=== PATIENT | male | born 1995 | race Caucasian/White ===

== ENCOUNTER 2016-08-13 00:34 | Emergency (ER) | payer SELFPAY ==
[~2016-08-13 00:34] MED LIST: ALBU18HF; ALBU18HF INHALATION
== END 2016-08-13 00:46 | disposition left against medical advice (07) ==
LOC: FTE 00:34
DX: Z53.21 Procedure and treatment not carried out due to patient leaving prior to being seen by health care provider (principal)

== ENCOUNTER 2016-08-19 17:07 | Inpatient (IN) | payer OTHER ==
[~2016-08-19] VITALS: Ht 180.3 cm; Wt 65.5 kg
[2016-08-19] MEDS: ALBUTEROL 18 GM INHALER INH SCH (02:30)
[2016-08-19] MEDS ORDERED: ONDANSETRON 4 MG INJ IV STA (17:33)
[2016-08-19] MEDS ORDERED: FAMOTIDINE 20 MG INJ IV STA (17:33)
[2016-08-19] MEDS ORDERED: SOD CHLORIDE 0.9% 1,000 ML IV STA (17:33)
--- NOTE | 2016-08-19 17:44 | CONS ---
DATE OF ADMISSION: 08/19/2016 DATE OF CONSULTATION: Dear Dr. De Leon: I thank you very much for this kind referral. HISTORY OF PRESENT ILLNESS: Mr. Rangel Arroyo is a 21-year-old male patient who has been referred to me for further evaluation of abdominal pain associated with vomiting. There is no past history of peptic ulcer disease. He is not taking any nonsteroidal anti-inflammatory agents. His appetite has been poor and he has been losing weight. There is no history of gallstones. He does not have any fever, chills or jaundice. There is no history of liver disease. The patient denies any change in the bowel habit or rectal bleeding. He is not a hypertensive or diabetic. He does not have any heart disease or lung problem. There is no history of kidney disease. SOCIAL HISTORY: He is a nonsmoker. He does not abuse alcohol. FAMILY HISTORY: Negative for gastrointestinal tract neoplasm and liver disease. ALLERGIES: THERE IS NO HISTORY OF SIGNIFICANT DRUG ALLERGY. MEDICATIONS: None. PHYSICAL EXAMINATION: GENERAL: He is 5 feet 11 inches tall and he weighs 135 pounds. HEART: Examination of the heart reveals normal first and second heart sounds. LUNGS: Clear. ABDOMEN: Soft without any distention. Liver and spleen are not palpable. There are no masses. There is no focal tenderness. Normal bowel sounds are heard. CENTRAL NERVOUS SYSTEM: Does not reveal any focal neurological deficit. EYES: The patient is icteric. IMPRESSION: 1. Patient has jaundice. 2. Upper abdominal pain and vomiting. 3. Weight loss. PLAN: 1. CMP which includes liver enzymes. 2. Abdominal ultrasound for further evaluation. 3. If the vomiting continues, patient will need endoscopy examination. I thank you once again. With warmest personal regards, Dictated By: TAMIKA STOVER/CONSUELO Conf#: [id number] DID#: [id number]
--- NOTE | 2016-08-19 18:15 | RADRPT ---
PROCEDURE: US Abdomen. CLINICAL INDICATION: abdominal pain TECHNIQUE: Multiple real-time images were acquired of the patient's right upper quadrant abdomen a nd retroperitoneum utilizing a high resolution transducer. COMPARISON: None FINDINGS: The liver demonstrates normal echogenicity. The liver is normal in size and no focal solid lesions are seen. The liver measures 15.2 cm in length. The portal vein is patent with normal direction of f low. No intrahepatic biliary dilatation is seen. The gallbladder is contracted and not well seen. No gallstones are identified within the gallbladde r. There is no pericholecystic fluid or gallbladder wall thickening. The common bile duct measures 3 mm in maximal dimension. The pancreas appears enlarged and prominent. No free fluid is identified. The right kidney is normal in size, and demonstrate normal echogenicity and cortical thickness. The right kidney measures 10.4 cm in long dimension. There is no evidence of hydronephrosis. There are no kidney stones. There is a trace amount of right perinephric fluid. RPTAT: AA IMPRESSION: Limited visualization of a contracted gallbladder. No evidence of gallstones. Possible trace amount of right perinephric fluid. Enlarged and prominent pancreas. Rule out pancreatitis. Further evaluation with CT is recommended. .Phan Duncan MD, Date Time Electronically viewed and signed by .Phan Duncan MD, MD on 08/19/2016 18:15 .S/
[2016-08-19 18:40] LABS: URINE BLOOD (Dip) POC Negative (NEGATIVE)
[2016-08-19 18:50] LABS: ADD SCAN DIFF NO
[2016-08-19 18:52] LABS: BASOPHILS % 0.3 % (0.0-2.0); EOSINOPHILS # 0.4 10^3/ul (0.0-0.5); EOSINOPHILS % 6.1 % (0.0-7.0); HEMATOCRIT 41.7 % (42.0-52.0); HEMOGLOBIN 13.7 g/dl (14.0-18.0); LYMPHOCYTES # 1.6 10^3/ul (0.8-2.9); LYMPHOCYTES % 24.9 % (15.0-51.0); MEAN CORPUSCULAR HEMOGLOBIN 28.2 pg (29.0-33.0); MEAN CORPUSCULAR HGB CONC 32.9 g/dl (32.0-37.0); MEAN PLATELET VOLUME 11.7 fl (7.4-10.4); MONOCYTE # 0.9 10^3/ul (0.3-0.9); MONOCYTES % 13.1 % (0.0-11.0); NEUTROPHIL # 3.6 10^3/ul (1.6-7.5); NEUTROPHILS % 55.1 % (39.0-77.0); PLATELET COUNT 200 10^3/UL (140-415); RED BLOOD COUNT 4.85 10^6/ul (4.70-6.10); RED CELL DISTRIBUTION WIDTH 15.7 % (11.5-14.5); WHITE BLOOD COUNT 6.5 10^3/ul (4.8-10.8)
[2016-08-19 19:07] LABS: INR 1.39; PROTIME 17.1 Sec (12.2-14.2); PT RATIO 1.3
[2016-08-19 19:10] LABS: ALBUMIN 2.6 g/dl (3.3-4.9); POTASSIUM 4.1 mmol/L (3.5-5.1)
[2016-08-19 19:12] LABS: BILIRUBIN,DIRECT 3.6 mg/dl (0.00-0.20); BILIRUBIN,INDIRECT 1.2 mg/dl (0-1.1); BILIRUBIN,TOTAL 4.8 mg/dl (0.2-1.3); CREATININE 0.58 mg/dl (0.61-1.24)
[2016-08-19 19:13] LABS: ALBUMIN/GLOBULIN RATIO 0.6; CALCIUM 8.4 mg/dl (8.4-10.2); TOTAL PROTEIN 6.9 g/dl (6.1-8.1)
[2016-08-19] MEDS ORDERED: SOD CHLORIDE 0.9% 100 ML ONE (20:09)
[2016-08-19] MEDS ORDERED: IODIXANOL LOCM 100 ML BTL ONE (20:10)
--- NOTE | 2016-08-19 20:56 | RADRPT ---
PROCEDURE: CT Abdomen and Pelvis with contrast. CLINICAL INDICATION: Abdominal pain jaundice TECHNIQUE: CT scan of the abdomen and pelvis with contrast was performed on a multi-detector high- resolution CT scanner. The patient was scanned following the intravenous administration of 98 cc of Visipaque 320. Coronal and sagittal reformatted images were obtained from the axial source images. Images were reviewed on a high-resolution PACS workstation. The total exam CTDI equals 4.83 mGy and the total exam DLP equals 308.52 mGy-cm. One or more the following dose reduction techniques were utilized: Automated exposure control, adjus tment of the mA/ or kV according to patient's size, or use of iterative reconstruction technique. COMPARISON: Right upper quadrant abdominal ultrasound of 08/19/2016 FINDINGS: CT abdomen: The lung bases are clear. The heart size is normal, without pericardial thickening or effusion. Non specific mild periportal edema. The length of the right lobe of the liver equals 20.2 cm which coul d be secondary to Reidel's lobe, normal variant. The spleen is normal in size and homogeneous in de nsity. The stomach is partially collapsed, but is grossly unremarkable. The pancreas as visualized is normal. There is appearance of likely diffuse gallbladder wall edema. The adrenal glands are s ymmetric and normal. The kidneys are symmetrically unremarkable.. No renal calculus or obstructive uropathy or mass lesion is seen. The aorta is of normal caliber. There is no retroperitoneal lymphadenopathy. Small amount of as cites. CT pelvis: The small bowel loops situated within the pelvis are unremarkable. The pelvic organs are normal. T he pelvic sidewalls and inguinal regions are clear. The sigmoid colon and rectum are unremarkable. No mass or lymphadenopathy is seen. Small amount of ascites. The bladder is normal. There is appearance of mild curvature of the lumbar spine with convexity to the left which could be positional. No osteolytic or osteoblastic lesion is detected. IMPRESSION: Diffuse gallbladder wall edema. Nonspecific mild periportal edema. Small amount of ascites. Finding s could be secondary to hepatitis, hepatic congestion. Please see above. RPTAT: HJES .Christopher Hensley MD, MD Date Time Electronically viewed and signed by .Christopher Hensley MD, on 08/19/2016 20:56 .S/
--- NOTE | 2016-08-19 21:09 | ERA ---
ER Documentation Chief Complaint Date/Time DATE: 08/19/16 TIME: 21:01 Chief Complaint noticed dark urines and conjunctival jaundice eyes x 2 weeks. loss wt HPI This is a 21-year-old male presenting to the emergency department for epigastric abdominal pain with nausea, vomiting and jaundice. Patient states he has had symptoms for the past 2 weeks. Patient has had frequent vomiting postprandially. Nonbloody, nonbilious emesis. No diarrhea or constipation. Patient states he noticed conjunctival jaundice and dark urine for the last week. No dysuria or hematuria. No urinary frequency or urgency. Patient states he traveled to [facility] 1 year ago. Patient is not up-to-date on his vaccines. Patient unsure if he ever received hepatitis vaccines. No fevers or chills. ROS All systems reviewed and are negative except as per history of present illness. Medications Home Meds Active Scripts Albuterol Sulfate* (Ventolin HFA*) 18 Gm Hfa.aer.ad, 2 PUFF INHALATION Q6H, #1 INHALER 0 Refills Prov:YOHANNES TAVARES PA-C 05/14/15 Reported Medications Albuterol Sulfate* (Ventolin HFA*) 18 Gm Hfa.aer.ad 08/07/12 Allergies Allergies: Coded Allergies: No Known Allergies (Verified Allergy, Unknown, 08/19/16) PMhx/Soc History of Surgery: No Anesthesia Reaction: No Hx Neurological Disorder: No Hx Respiratory Disorders: Yes (ASTHMA) Hx Cardiac Disorders: No Hx Psychiatric Problems: No Hx Miscellaneous Medical Probl: No Hx Alcohol Use: No Hx Substance Use: No Hx Tobacco Use: No Physical Exam Vitals Vital Signs Date Time Temp Pulse Resp B/P Pulse Ox O2 Delivery O2 Flow Rate FiO2 08/19/16 17:11 98.1 71 18 174/67 99 Physical Exam Const: Alert, ill-appearing Head: Atraumatic Eyes: Normal Conjunctiva ENT: Normal External Ears, Nose and Mouth. Neck: Full range of motion..~ No meningismus. Resp: Clear to auscultation bilaterally Cardio: Regular rate and rhythm, no murmurs Abd: Soft, non distended. Normal bowel sounds Liver and spleen are not palpable. There are no masses. Tenderness to epigastric region. Skin: No petechiae or rashes Back: No midline or flank tenderness Ext: No cyanosis, or edema Neur: Awake and alert Psych: Normal Mood and Affect Result Diagram: 08/19/16 1835 08/19/16 1835 Results 24 hrs Laboratory Tests Test 08/19/16 18:35 08/19/16 18:42 White Blood Count 6.510^3/ul Red Blood Count 4.8510^6/ul Hemoglobin 13.7g/dl Hematocrit 41.7% Mean Corpuscular Volume 86.0fl Mean Corpuscular Hemoglobin 28.2pg Mean Corpuscular Hemoglobin Concent 32.9g/dl Red Cell Distribution Width 15.7% Platelet Count 97556^3/UL Mean Platelet Volume 11.7fl Neutrophils % 55.1% Lymphocytes % 24.9% Monocytes % 13.1% Eosinophils % 6.1% Basophils % 0.3% Nucleated Red Blood Cells % 0.0/100WBC Neutrophils # 3.610^3/ul Lymphocytes # 1.610^3/ul Monocytes # 0.910^3/ul Eosinophils # 0.410^3/ul Basophils # 0.010^3/ul Nucleated Red Blood Cells # 0.010^3/ul Prothrombin Time 17.1Sec Prothrombin Time Ratio 1.3 INR International Normalized Ratio 1.39 Sodium Level 135mmol/L Potassium Level 4.1mmol/L Chloride Level 98mmol/L Carbon Dioxide Level 29mmol/L Anion Gap 12 Blood Urea Nitrogen 9mg/dl Creatinine 0.58mg/dl Glucose Level 87mg/dl Calcium Level 8.4mg/dl Total Bilirubin 4.8mg/dl Direct Bilirubin 3.60mg/dl Indirect Bilirubin 1.2mg/dl Aspartate Amino Transf (AST/SGOT) 735IU/L Alanine Aminotransferase (ALT/SGPT) 574IU/L Alkaline Phosphatase 239IU/L Total Protein 6.9g/dl Albumin 2.6g/dl Globulin 4.30g/dl Albumin/Globulin Ratio 0.60 Lipase 180U/L Hepatitis B Surface Antigen NEGATIVE Hepatitis B Core Total Antibody NEGATIVE Hepatitis C Antibody NEGATIVE Bedside Urine pH (LAB) 6.0 Bedside Urine Protein (LAB) 1+ Bedside Urine Glucose (UA) 0.1% Bedside Urine Ketones (LAB) Negative Bedside Urine Blood Negative Bedside Urine Nitrite (LAB) Negative Bedside Urine Leukocyte Esterase (L Negative Current Medications Medications (Trade) Dose Ordered Sig/Kylee Route PRN Reason Start Time Stop Time Status Last Admin Dose Admin Sodium Chloride (NS) 1,000 ml @ 1,000 mls/hr Q1H STAT IV 08/19/16 17:33 08/19/16 18:32 DC 08/19/16 18:49 Ondansetron HCl (Zofran Inj) 4 mg ONCE STAT IV 08/19/16 17:33 08/19/16 17:43 DC 08/19/16 18:49 Famotidine (Pepcid Iv) 20 mg ONCE STAT IV 08/19/16 17:33 08/19/16 17:43 DC 08/19/16 18:49 IV Flush 10 ml 10 ml STK-MED ONCE .ROUTE 08/19/16 20:09 08/19/16 20:10 DC 08/19/16 20:30 Sodium Chloride (NS) 100 ml @ ud STK-MED ONCE .ROUTE 08/19/16 20:09 08/19/16 20:10 DC 08/19/16 20:30 Iodixanol (Visipaque Locm) 100 ml STK-MED ONCE .ROUTE 08/19/16 20:10 08/19/16 20:11 DC 08/19/16 20:30 Ondansetron HCl (Zofran Inj) 4 mg BRIDGE ORDER PRN IV NAUSEA AND/OR VOMITING 08/19/16 22:00 08/20/16 21:59 Acetaminophen (Tylenol Tab) 650 mg ER BRIDGE PRN PO MILD PAIN/FEVER 08/19/16 22:00 08/20/16 21:59 IV Flush (NS 3 ml) 3 ml PER PROTOCOL IV 08/19/16 22:30 Ondansetron HCl (Zofran Inj) 4 mg Q6H PRN IV NAUSEA AND/OR VOMITING 08/19/16 22:30 Morphine Sulfate (morphine) 2 mg Q4H PRN IV SEVERE PAIN LEVEL 7-10 08/19/16 22:30 Famotidine (Pepcid) 20 mg Q12 PO 08/20/16 09:00 Albuterol/ Ipratropium (Duoneb) 3 ml Q2H RESP THERAPY PRN HHN SHORTNESS OF BREATH 08/19/16 22:30 Albuterol (Ventolin Hfa) 2 puff Q6H RESP THERAPY INH 08/19/16 22:15 Procedures/MDM ED COURSE: The patient was stable throughout ED course. I kept the patient and/or family informed of laboratory and diagnostic imaging results throughout the ED course. Patient: SANG HOLT : 1995 Age: 21 Sex: M MR #: [id number] DOS: 08/19/16 1733 Ordering MD: LATRELL STUART NP Location: [facility] Room/Bed: PROCEDURE: US Abdomen. CLINICAL INDICATION: abdominal pain TECHNIQUE: Multiple real-time images were acquired of the patient's right upper quadrant abdomen and retroperitoneum utilizing a high resolution transducer. COMPARISON: None FINDINGS: The liver demonstrates normal echogenicity. The liver is normal in size and no focal solid lesions are seen. The liver measures 15.2 cm in length. The portal vein is patent with normal direction of flow. No intrahepatic biliary dilatation is seen. The gallbladder is contracted and not well seen. No gallstones are identified within the gallbladder. There is no pericholecystic fluid or gallbladder wall thickening. The common bile duct measures 3 mm in maximal dimension. The pancreas appears enlarged and prominent. No free fluid is identified. The right kidney is normal in size, and demonstrate normal echogenicity and cortical thickness. The right kidney measures 10.4 cm in long dimension. There is no evidence of hydronephrosis. There are no kidney stones. There is a trace amount of right perinephric fluid. RPTAT: AA IMPRESSION: Limited visualization of a contracted gallbladder. No evidence of gallstones. Possible trace amount of right perinephric fluid. Enlarged and prominent pancreas. Rule out pancreatitis. Further evaluation with CT is recommended. Patient: SANG HOLT : 1995 Age: 21 Sex: M [id number] DOS: 08/19/16 1817 Ordering MD: GUNJAN CANELA MD Location: [facility] Room/Bed: PROCEDURE: CT Abdomen and Pelvis with contrast. CLINICAL INDICATION: Abdominal pain jaundice TECHNIQUE: CT scan of the abdomen and pelvis with contrast was performed on a multi-detector high-resolution CT scanner. The patient was scanned following the intravenous administration of 98 cc of Visipaque 320. Coronal and sagittal reformatted images were obtained from the axial source images. Images were reviewed on a high-resolution PACS workstation. The total exam CTDI equals 4.83 mGy and the total exam DLP equals 308.52 mGy-cm. One or more the following dose reduction techniques were utilized: Automated exposure control, adjustment of the mA/ or kV according to patient's size, or use of iterative reconstruction technique. COMPARISON: Right upper quadrant abdominal ultrasound of 08/19/2016 FINDINGS: CT abdomen: The lung bases are clear. The heart size is normal, without pericardial thickening or effusion. Nonspecific mild periportal edema. The length of the right lobe of the liver equals 20.2 cm which could be secondary to Reidel's lobe , normal variant. The spleen is normal in size and homogeneous in density. The stomach is partially collapsed, but is grossly unremarkable. The pancreas as visualized is normal. There is appearance of likely diffuse gallbladder wall edema. The adrenal glands are symmetric and normal. The kidneys are symmetrically unremarkable.. No renal calculus or obstructive uropathy or mass lesion is seen. The aorta is of normal caliber. There is no retroperitoneal lymphadenopathy. Small amount of ascites. CT pelvis: The small bowel loops situated within the pelvis are unremarkable. The pelvic organs are normal. The pelvic sidewalls and inguinal regions are clear. The sigmoid colon and rectum are unremarkable. No mass or lymphadenopathy is seen. Small amount of ascites. The bladder is normal. There is appearance of mild curvature of the lumbar spine with convexity to the left which could be positional. No osteolytic or osteoblastic lesion is detected. IMPRESSION: Diffuse gallbladder wall edema. Nonspecific mild periportal edema. Small amount of ascites. Findings could be secondary to hepatitis, hepatic congestion. Please see above. MDM: This is a 21-year-old male presenting to emergency department for epigastric pain, vomiting, conjunctival jaundice 2 weeks. Patient states he is unable to tolerate p.o. intake. Patient states due to this he has had weight loss in the past 2 weeks. No fevers or chills. Patient is afebrile upon arrival to ED. Due to patient's history and physical exam, labs and gallbladder US are ordered. Gallbladder ultrasound reviewed by radiologist as limited visualization of a contracted gallbladder. No evidence of gallstones. Possible trace amount of right perinephric fluid. Enlarged and prominent pancreas. Rule out pancreatitis. Further evaluation with CT is recommended. No significant anemia or infection. However AST 735, ALT 574 and alkaline phosphatase 239. This is a significant elevation in liver enzymes and therefore a CT abdomen and pelvis with contrast is ordered. CT abdomen pelvis reviewed by radiologist as diffuse gallbladder wall edema. Nonspecific mild. Portal edema. Small amount of ascites. Findings could be secondary to hepatitis, hepatitic congestion. Consulted Dr. Connell regarding these findings. Patient appropriate for transfer to higher level of care and admission to hospital. Departure Diagnosis: Primary Impression: Hepatitis Condition: Stable LATRELL STUART NP August 19, 2016 21:09
[2016-08-19 21:11] LABS: HAAIG REFLEX REFLEX FILED
--- NOTE | 2016-08-19 21:50 | QN ---
Documentation Comment My independent concise history is jaundice. My pertinent physical exam findings are jaundice. The plan is admission to Dr. Mark as the patient has preferred [employer] insurance. SHAQUILLE OSEI MD August 19, 2016 21:50
[2016-08-19] MEDS ORDERED: ACETAMINOPHEN 325 MG TAB PO PRN (22:00)
[2016-08-19] MEDS ORDERED: ONDANSETRON 4 MG INJ IV PRN (22:00)
--- NOTE | 2016-08-19 22:05 | HP ---
Date/Time of Note Date/Time of Note DATE: 08/19/16 TIME: 22:05 HPI/ROS Admit Date/Time Admit Date/Time Hx of Present Illness PLEASE SEE THE DICTATED H&P Exam/Review of Systems Vital Signs Vitals Vital Signs Date Time Temp Pulse Resp B/P Pulse Ox O2 Delivery O2 Flow Rate FiO2 08/19/16 17:11 98.1 71 18 174/67 99 Labs Result Diagram: 08/19/16 1835 08/19/16 1835 SAFIA SENIOR MD August 19, 2016 22:05
[2016-08-19 22:15] LABS: HEPATITIS B CORE ANTIBODY NEGATIVE (NEGATIVE)
[2016-08-19] MEDS ORDERED: NACL 0.9% 3 ML SYG IV SCH (22:30)
[2016-08-19] MEDS ORDERED: morphine 2 MG INJ IV PRN (22:30)
[2016-08-19] MEDS ORDERED: ALBUTEROL/IPRATROPIUM (NEB) 3 ML AMP HHN PRN (22:30)
[2016-08-19] MEDS ORDERED: ERGO500037 PO (22:51)
[2016-08-20] MEDS: ALBUTEROL 18 GM INHALER INH SCH ×4 (02:00→20:00)
[2016-08-20 02:14] VITALS: TEMP 98.2
[2016-08-20 03:00] VITALS: BP 99/53; PULSE 66; RESP 18
[2016-08-20 03:04] VITALS: Ht 180.3 cm; Wt 65.5 kg
[2016-08-20 06:42] LABS: ADD SCAN DIFF NO
[2016-08-20 06:50] LABS: BASOPHILS % 0.6 % (0.0-2.0); EOSINOPHILS # 0.3 10^3/ul (0.0-0.5); EOSINOPHILS % 6.7 % (0.0-7.0); HEMATOCRIT 33.8 % (42.0-52.0); HEMOGLOBIN 11.2 g/dl (14.0-18.0); LYMPHOCYTES # 1.2 10^3/ul (0.8-2.9); LYMPHOCYTES % 24.5 % (15.0-51.0); MEAN CORPUSCULAR HEMOGLOBIN 28.1 pg (29.0-33.0); MEAN CORPUSCULAR HGB CONC 33.1 g/dl (32.0-37.0); MEAN CORPUSCULAR VOLUME 84.9 fl (82.0-101.0); MEAN PLATELET VOLUME 12.8 fl (7.4-10.4); MONOCYTE # 0.7 10^3/ul (0.3-0.9); MONOCYTES % 14.6 % (0.0-11.0); NEUTROPHIL # 2.6 10^3/ul (1.6-7.5); NEUTROPHILS % 53.2 % (39.0-77.0); PLATELET COUNT 157 10^3/UL (140-415); RED BLOOD COUNT 3.98 10^6/ul (4.70-6.10); RED CELL DISTRIBUTION WIDTH 15.7 % (11.5-14.5); WHITE BLOOD COUNT 4.9 10^3/ul (4.8-10.8)
[2016-08-20 07:12] LABS: ALBUMIN/GLOBULIN RATIO 0.58; BILIRUBIN,DIRECT 3.3 mg/dl (0.00-0.20); BILIRUBIN,INDIRECT 1.2 mg/dl (0-1.1); BILIRUBIN,TOTAL 4.5 mg/dl (0.2-1.3); CALCIUM 7.8 mg/dl (8.4-10.2); CREATININE 0.65 mg/dl (0.61-1.24); MAGNESIUM 1.7 mg/dl (1.7-2.5); PHOSPHORUS 3.8 mg/dl (2.5-4.9); TOTAL PROTEIN 5.4 g/dl (6.1-8.1)
[2016-08-20 08:00] VITALS: BP 92/53; RESP 20
[2016-08-20] MEDS ORDERED: DEXTROSE 5%-0.9% NACL 1,000 ML IV SCH (09:00)
--- NOTE | 2016-08-20 09:12 | HP ---
DATE OF ADMISSION: 08/19/2016 TIME SEEN: 2300 CHIEF COMPLAINT: Abdominal pain, vomiting, jaundice, and swollen hands. HISTORY OF PRESENT ILLNESS: The patient is 21-year-old [place] male with a history of asthma who presented to the emergency department with the above stated chief complaint. He stated starting abo ut 2 weeks ago he started noticing his eyes turning yellow, and about a week ago he started experien cing abdominal pain, mainly in the right upper quadrant in the epigastric area. He also started not icing dark urine over the past 2 weeks. He was actually referred to Dr. Diana, the [facility], who actually already saw the patient. The patient further stated that he has been well up unt md about a year ago when he started noticing that both of his hands were swollen. At that time, he also started having joint pains and generalized weakness. He did see a doctor who told him just to exercise his hands. Until this day, his hands are somehow swollen and he cannot make a fist because of pain and also there is some limitation. He did travel back to [facility] for a visit about a year ago. At that time had minimal diarrhea, which resolved on its own after a few days. Along with hi s abdominal pain over the past 2 weeks, the patient also has been vomiting which is nonbilious, nonb loody. The patient also stated that he had lost 50 pounds in 1 year. About a year ago he used to w eigh 185 pounds and he intentionally wanted to lose about 20 pounds, but he continued to lose weight because of the vomiting and the decreased p.o. intake. When the patient presented to the ER, his blood pressure was 174/67, heart rate 71, respiratory rate 18, temperature 98.1, oxygen saturation 99% on room air. CBC shows a hemoglobin of 13.7. He has a bnormal liver chemistries with an AST of 735, ALT 574, alkaline phosphatase 239. Total bilirubin is 4.8 with indirect bilirubin 1.2, his albumin 2.6. He had a right upper quadrant ultrasound which s hows possible trace amount of right perinephric fluid, enlarged and a prominent pancreas. His gallb ladder was contracted causing limited visualization, but there was no evidence of gallstones. CT ab domen and pelvis with contrast was done which showed diffuse gallbladder wall edema. Nonspecific mi ld periportal edema. A small amount of ascites. The findings could be secondary to hepatitis or he patic congestion. Of note, the patient a few months ago had blood tests and at that time his AST an d ALT were in the 90s and 80s. His MAGI (antinuclear antibody) was positive and hepatitis panel show s hepatitis C antibody and hepatitis B core antibody were negative, but the hepatitis B surface anti body was positive. Here, we already checked hepatitis B and C and it shows that hepatitis C antibod y, hepatitis B core antibody, and hepatitis B surface antigen are all negative. REVIEW OF SYSTEMS: A 12-point review of systems was performed, negative except as mentioned in HPI. PAST MEDICAL HISTORY: As per HPI. PAST SURGICAL HISTORY: Denies. SOCIAL HISTORY: Denies history of tobacco, alcohol or illicit drug use. ALLERGIES: NO KNOWN DRUG ALLERGIES. HOME MEDICATIONS: Albuterol and vitamin D. PHYSICAL EXAMINATION: GENERAL: The patient is lying in bed, appears weak and speaking slowly. He is alert and oriented. HEENT: No obvious head deformity. There is scleral icterus. Also, there is dermal jaundice on his face. CARDIOVASCULAR: Regular rate and rhythm with no extra sounds. LUNGS: Clear. ABDOMEN: Soft. There is tenderness in the right upper quadrant area and to some extent in the epig astric area with no guarding, rebound tenderness or rigidity. EXTREMITIES: Both of his hands are somehow swollen and the patient cannot make a fist. His middle finger also shows some deformity in that he cannot fully extend it. NEUROLOGIC: No focal deficits. LABORATORY DATA: Pertinent positives what as mentioned in the HPI. IMAGING: Right upper quadrant ultrasound and CT abdomen and pelvis with contrast with results as me ntioned in the HPI. IMPRESSION: 1. Jaundice. 2. Abdominal pain. 3. Abnormal liver enzymes. 4. Bilateral swollen hands. 5. History of asthma. PLAN: As mentioned in the HPI, his hepatitis panel so far have been negative, but we are waiting fo r the acute hepatitis panel results to come back. As mentioned in the HPI, also the patient had an A NA that was positive from outside laboratory. Given that his hands are swollen, he has joint pain, it may be possible that the patient has an autoimmune disease causing autoimmune hepatitis as well. We will further do some blood tests. The patient has been followed by Dr. Diana. Will talk to s eva whether or not the patient needs a liver biopsy or whether or not we should start him on a steroi d, Pentoxifylline. In the meantime, we will provide pain medication and antiemetics as needed. Cur rently there is no sign of asthma exacerbation but he will receive breathing treatments as needed. Further workup and management per clinical course. Dictated By: SAFIA HOBBS/CONSUELO Conf#: [id number] DID#: [id number]
[2016-08-20] MEDS: FAMOTIDINE 20 MG TAB PO SCH ×2 (09:28→20:41)
[2016-08-20] MEDS: SOD CHLORIDE 0.9% 1,000 ML IV SCH (11:28)
--- NOTE | 2016-08-20 12:28 | CONS ---
Date/Time of Note Date/Time of Note DATE: 08/20/16 TIME: 12:28 Assessment/Plan Assessment/Plan Additional Assessment/Plan Transaminitis/jaundice Evaluate for pancreatitis versus autoimmune etiology versus transient elevation Rule out choledocholithiasis IVF Hydration Nausea and pain control Review MRCP, autoimmune markers, hep A ERCP if clinically indicated, pt advised of R/B/A of procedure and she provides informed consent to proceed Monitor LFTs, amylase, lipase Surgery following Asthma Management per Primary Joint pain Management per Primary May require rheumatology consult Autoimmune markers in process Further recommendations depend on clinical course Patient seen in collaboration with Dr. Ortiz Consultation Date/Type/Reason Admit Date/Time Type of Consultation: Gastroenterology Reason for Consultation Transaminitis Hx of Present Illness Mr.Eyasu Arroyo is a 21-year-old male with a history of asthma who presented to the emergency room for further evaluation of nausea, vomiting, and abdominal pain. Patient denies hematemesis, fever, chills, diarrhea, hematochezia, sick contacts, and recent travel outside of the . Patient reports intermittent vomiting with chronic nausea and abdominal pain for the last 2 weeks. He also reports losing 4-6 pounds over this period. He reports previous history of abdominal pain for the last year with 50 pound weight loss. About a year ago he used to weigh 185 pounds and he intentionally wanted to lose about 20 pounds, but he continued to lose weight because of the vomiting and the decreased p.o. intake. Patient also has a history of joint pains and swelling for the last year as well. Patient states last travel to [facility] was a year ago. Patient said he was in the process of getting additional workup for autoimmune causes of joint pains. Patient denies diagnosis of lupus. Social History Smoking Status: Never smoker Exam/Review of Systems Vital Signs Vitals Vital Signs Date Time Temp Pulse Resp B/P Pulse Ox O2 Delivery O2 Flow Rate FiO2 08/20/16 08:00 98.2 66 20 92/53 98 08/20/16 03:00 Room Air Intake and Output 08/19/16 08/19/16 08/20/16 15:00 23:00 07:00 Intake Total 600 ml Output Total 500 ml Balance 100 ml Exam Constitutional: alert, oriented, well developed, thin Psych: nl mood/affect Head: normocephalic Eyes: EOMI, nl conjunctiva, nl lids, anicteric sclera ENMT: nl external ears & nose, nl lips & teeth, nl nasal mucosa & septum Respiratory: clear to auscultation, normal air movement Cardiovascular: regular rate and rhythm Gastrointestinal: soft, non-tender Musculoskeletal: nl extremities to inspection Neurological: HEAD OF SALES II-XII intact Results Result Diagram: 08/20/16 0501 08/20/16 0501 Results 24 hrs Laboratory Tests Test 08/19/16 18:35 08/19/16 18:42 08/20/16 05:01 White Blood Count 6.5 4.9 # Red Blood Count 4.85 3.98 L Hemoglobin 13.7 L 11.2 L Hematocrit 41.7 L 33.8 L Mean Corpuscular Volume 86.0 84.9 Mean Corpuscular Hemoglobin 28.2 L 28.1 L Mean Corpuscular Hemoglobin Concent 32.9 33.1 Red Cell Distribution Width 15.7 H 15.7 H Platelet Count 200 157 # Mean Platelet Volume 11.7 H 12.8 H Neutrophils % 55.1 53.2 Lymphocytes % 24.9 24.5 Monocytes % 13.1 H 14.6 H Eosinophils % 6.1 6.7 Basophils % 0.3 0.6 Nucleated Red Blood Cells % 0.0 0.0 Neutrophils # 3.6 2.6 Lymphocytes # 1.6 1.2 Monocytes # 0.9 0.7 Eosinophils # 0.4 0.3 Basophils # 0.0 0.0 Nucleated Red Blood Cells # 0.0 0.0 Prothrombin Time 17.1 H Prothrombin Time Ratio 1.3 INR International Normalized Ratio 1.39 Sodium Level 135 132 L Potassium Level 4.1 4.0 Chloride Level 98 105 Carbon Dioxide Level 29 25 Anion Gap 12 6 L Blood Urea Nitrogen 9 9 Creatinine 0.58 L 0.65 Glucose Level 87 98 Calcium Level 8.4 7.8 L Total Bilirubin 4.8 H 4.5 H Direct Bilirubin 3.60 H 3.30 H Indirect Bilirubin 1.2 H 1.2 H Aspartate Amino Transf (AST/SGOT) 735 H 569 H Alanine Aminotransferase (ALT/SGPT) 574 H 450 H Alkaline Phosphatase 239 H 178 H Total Protein 6.9 5.4 #L Albumin 2.6 L 2.0 L Globulin 4.30 H 3.40 H Albumin/Globulin Ratio 0.60 0.58 Lipase 180 Hepatitis B Surface Antigen NEGATIVE Hepatitis B Core Total Antibody NEGATIVE Hepatitis C Antibody NEGATIVE Bedside Urine pH (LAB) 6.0 Bedside Urine Protein (LAB) 1+ H Bedside Urine Glucose (UA) 0.1% H Bedside Urine Ketones (LAB) Negative Bedside Urine Blood Negative Bedside Urine Nitrite (LAB) Negative Bedside Urine Leukocyte Esterase (L Negative Phosphorus Level 3.8 Magnesium Level 1.7 HIV (1&2) Antibody NEGATIVE Medications Medications Current Medications Ondansetron HCl (Zofran Inj) 4 mg Q6H PRN IV NAUSEA AND/OR VOMITING; Start 03/26 at 22:30 Morphine Sulfate (morphine) 2 mg Q4H PRN IV SEVERE PAIN LEVEL 7-10; Start 08/19 at 22:30 Famotidine 20 mg 20 mg Q12 PO Last administered on 08/20/16 09:28; Admin Dose 20 MG; Start 08/20/16 at 09:00 Dextrose/Sodium Chloride 1,000 ml @ 100 mls/hr Q10H IV ; Start 08/20/16 at 09: 00 Sodium Chloride (NS) 1,000 ml @ 100 mls/hr Q10H IV Last administered on 11:28; Admin Dose 100 MLS/HR; Start 08/20/16 at 11:30; Stop 08/21/16 at 07: 29 SHANNAN KENNEDY August 20, 2016 12:28
--- NOTE | 2016-08-20 13:24 | CONS ---
DATE OF ADMISSION: 08/19/2016 DATE OF CONSULTATION: TYPE OF CONSULTATION: Surgical. REASON FOR CONSULTATION: Abdominal pain and jaundice. HISTORY OF PRESENT ILLNESS: The patient is a 21-year-old gentleman who started to develop jaundice within the last several months. He was followed as an outpatient by Dr. Diana, with outpatient wo rkup initiated. The patient presented to the emergency room yesterday with severe abdominal pain, n ausea and vomiting and was admitted for further evaluation and treatment. He was noted to be clinic ally icteric. The patient notes that over the last year he has lost 50 pounds because of inability to eat and nausea and he has joint pain in both hands, resulting in weakness. This hospitalization his admitting bilirubin was 4.8 with an AST of 735 and an ALT of 574, with an alkaline phosphatase o f 239. The patient is negative for hepatitis C, B and HIV. The patient is admitted for further mason luation. Of note, on imagings the abdomen and pelvis CT shows diffuse gallbladder wall edema with n onspecific mild periportal edema and a small amount of ascites. Gallbladder ultrasound shows limite d visualization of a contracted gallbladder, but no evidence of gallstones and a possible trace amou nt of right perinephric fluid in a large and prominent pancreas. PAST MEDICAL HISTORY: No previous abdominal surgeries or hospitalizations. REVIEW OF SYSTEMS: HEAD, EYES, EARS, NOSE, THROAT: Within normal limits. PULMONARY: No history of pneumonia or shortness of breath. CARDIAC: No history of chest pain, GA, or arrhythmia. ABDOMEN: As in the HPI. EXTREMITIES: As in the HPI. OUTPATIENT MEDICATIONS: None. ALLERGIES: NONE. PHYSICAL EXAMINATION: GENERAL: The patient is a thin 21-year-old, [place] male, who is awake and alert, in no acute dis tress. HEAD, EARS, EYES, NOSE, THROAT: Within normal limits. Sclerae are icteric. LUNGS: Clear. HEART: Regular rhythm. ABDOMEN: Slightly tender in the epigastric area, without masses. EXTREMITIES: Unremarkable. LABORATORY DATA: As noted above. PLAN: Awaiting GI consultation. The patient may need a liver biopsy. There are no surgical recomm endations at this time, as the patient's process is almost certainly entirely hepatocellular. Dictated By: ELMIRA SWAN/CONSUELO Conf#: [id number] [facility]#: [id number]
--- NOTE | 2016-08-20 14:29 | PN ---
Date/Time of Note Date/Time of Note DATE: 08/20/16 TIME: 14:26 Assessment/Plan VTE Prophylaxis VTE Prophylaxis Intervention: ambulation Lines/Catheters [facility] Urinary Cath still in place: No Assessment/Plan Chief Complaint/Hosp Course 1. Jaundice with hepatitis -Workup for autoimmune hepatitis is pending, hepatitis viral panel is negative -GI consult is appreciated 2. Joint pain with swollen hands-this is a chronic issue -Patient will need outpatient follow-up with commercial pest control technician, autoimmune workup is pending -Patient has history of positive MAGI in the past, will test for anti-double- stranded DNA 3. History of asthma-stable Prophylaxis: Ambulation Problems: Subjective 24 Hr Interval Summary Musculoskeletal: bone/joint pain Exam/Review of Systems Vital Signs Vitals Vital Signs Date Time Temp Pulse Resp B/P Pulse Ox O2 Delivery O2 Flow Rate FiO2 08/20/16 08:00 98.2 66 20 92/53 98 08/20/16 03:00 Room Air Intake and Output 08/19/16 08/19/16 08/20/16 15:00 23:00 07:00 Intake Total 600 ml Output Total 500 ml Balance 100 ml Exam Constitutional: alert, oriented Eyes: icteric Respiratory: clear to auscultation Cardiovascular: regular rate and rhythm Gastrointestinal: soft, No distended Musculoskeletal: nl extremities to inspection Results Result Diagram: 08/20/16 0501 08/20/16 0501 Results 24 hrs Laboratory Tests Test 08/19/16 18:35 08/19/16 18:42 08/20/16 05:01 White Blood Count 6.5 4.9 # Red Blood Count 4.85 3.98 L Hemoglobin 13.7 L 11.2 L Hematocrit 41.7 L 33.8 L Mean Corpuscular Volume 86.0 84.9 Mean Corpuscular Hemoglobin 28.2 L 28.1 L Mean Corpuscular Hemoglobin Concent 32.9 33.1 Red Cell Distribution Width 15.7 H 15.7 H Platelet Count 200 157 # Mean Platelet Volume 11.7 H 12.8 H Neutrophils % 55.1 53.2 Lymphocytes % 24.9 24.5 Monocytes % 13.1 H 14.6 H Eosinophils % 6.1 6.7 Basophils % 0.3 0.6 Nucleated Red Blood Cells % 0.0 0.0 Neutrophils # 3.6 2.6 Lymphocytes # 1.6 1.2 Monocytes # 0.9 0.7 Eosinophils # 0.4 0.3 Basophils # 0.0 0.0 Nucleated Red Blood Cells # 0.0 0.0 Prothrombin Time 17.1 H Prothrombin Time Ratio 1.3 INR International Normalized Ratio 1.39 Sodium Level 135 132 L Potassium Level 4.1 4.0 Chloride Level 98 105 Carbon Dioxide Level 29 25 Anion Gap 12 6 L Blood Urea Nitrogen 9 9 Creatinine 0.58 L 0.65 Glucose Level 87 98 Calcium Level 8.4 7.8 L Total Bilirubin 4.8 H 4.5 H Direct Bilirubin 3.60 H 3.30 H Indirect Bilirubin 1.2 H 1.2 H Aspartate Amino Transf (AST/SGOT) 735 H 569 H Alanine Aminotransferase (ALT/SGPT) 574 H 450 H Alkaline Phosphatase 239 H 178 H Total Protein 6.9 5.4 #L Albumin 2.6 L 2.0 L Globulin 4.30 H 3.40 H Albumin/Globulin Ratio 0.60 0.58 Lipase 180 Hepatitis B Surface Antigen NEGATIVE Hepatitis B Core Total Antibody NEGATIVE Hepatitis C Antibody NEGATIVE Bedside Urine pH (LAB) 6.0 Bedside Urine Protein (LAB) 1+ H Bedside Urine Glucose (UA) 0.1% H Bedside Urine Ketones (LAB) Negative Bedside Urine Blood Negative Bedside Urine Nitrite (LAB) Negative Bedside Urine Leukocyte Esterase (L Negative Phosphorus Level 3.8 Magnesium Level 1.7 CA 19-9 Antigen 869.0 H HIV (1&2) Antibody NEGATIVE Medications Medications Current Medications Ondansetron HCl (Zofran Inj) 4 mg Q6H PRN IV NAUSEA AND/OR VOMITING; Start 03/26 at 22:30 Morphine Sulfate (morphine) 2 mg Q4H PRN IV SEVERE PAIN LEVEL 7-10; Start 08/19 at 22:30 Famotidine 20 mg 20 mg Q12 PO Last administered on 08/20/16 09:28; Admin Dose 20 MG; Start 08/20/16 at 09:00 Sodium Chloride (NS) 1,000 ml @ 100 mls/hr Q10H IV Last administered on 11:28; Admin Dose 100 MLS/HR; Start 08/20/16 at 11:30; Stop 08/21/16 at 07: 29 JULIA BAKER August 20, 2016 14:29
--- NOTE | 2016-08-20 15:27 | RADRPT ---
PROCEDURE: MRI Abdomen without intravenous contrast. CLINICAL INDICATION: Hepatitis, abdominal pain TECHNIQUE: MRI of the abdomen was performed. The patient was examined without IV contrast. Images were reviewed on a high-resolution PACS workstation. COMPARISON: CT and ultrasound, 08/19/2016 FINDINGS: Hepatomegaly is noted measuring 20 cm. No focal hepatic mass is identified. Hepatic periportal renate ma is noted, which can be seen in the setting of hepatitis. Gallbladder is contracted, and demonstr ates circumferential wall edema, likely reactive secondary to underlying liver disease. No gallston e is seen. Splenomegaly is noted measuring 14 cm. Biliary tree, pancreas, adrenal glands and kidne ys are unremarkable. There is no obstructive uropathy. The stomach is grossly unremarkable. Abdominal aorta is normal in caliber. There is no retroperitoneal or terrence hepatis lymphadenopathy. Mild upper abdominal ascites is noted. No bowel obstruction or evidence of abscess is identified. The surrounding osseous structures are unremarkable. There is mild anasarca. IMPRESSION: 1. Hepatomegaly is noted. Hepatic periportal edema is identified, which can be seen in the setting of hepatitis. 2. Splenomegaly is noted measuring 14 cm. 3. There is mild upper abdominal ascites. 4. Circumferential gallbladder wall thickening is noted, likely reactive secondary to underlying li tejinder disease. No evidence of cholelithiasis, cholecystitis or biliary dilatation is identified. 5. There is mild anasarca. RPTAT: QQ .Vignesh Akhtar MD, MD Date Time Electronically viewed and signed by .Vignesh Akhtar MD, MD on 08/20/2016 15:27 .R/
[2016-08-20 19:25] VITALS: BP 93/51; RESP 18
[2016-08-21] MEDS: SOD CHLORIDE 0.9% 1,000 ML IV SCH (00:27)
[2016-08-21] MEDS: ALBUTEROL 18 GM INHALER INH SCH ×4 (02:00→20:00)
[2016-08-21 05:10] LABS: ADD SCAN DIFF NO
[2016-08-21 05:13] LABS: BASOPHILS % 0.3 % (0.0-2.0); EOSINOPHILS # 0.5 10^3/ul (0.0-0.5); EOSINOPHILS % 7.8 % (0.0-7.0); HEMATOCRIT 33.3 % (42.0-52.0); HEMOGLOBIN 11.3 g/dl (14.0-18.0); LYMPHOCYTES # 1.8 10^3/ul (0.8-2.9); LYMPHOCYTES % 30.5 % (15.0-51.0); MEAN CORPUSCULAR HEMOGLOBIN 28.5 pg (29.0-33.0); MEAN CORPUSCULAR HGB CONC 33.9 g/dl (32.0-37.0); MEAN CORPUSCULAR VOLUME 84.1 fl (82.0-101.0); MEAN PLATELET VOLUME 12.2 fl (7.4-10.4); MONOCYTE # 0.8 10^3/ul (0.3-0.9); MONOCYTES % 13.3 % (0.0-11.0); NEUTROPHIL # 2.8 10^3/ul (1.6-7.5); NEUTROPHILS % 47.9 % (39.0-77.0); PLATELET COUNT 166 10^3/UL (140-415); RED BLOOD COUNT 3.96 10^6/ul (4.70-6.10); RED CELL DISTRIBUTION WIDTH 15.7 % (11.5-14.5); WHITE BLOOD COUNT 5.8 10^3/ul (4.8-10.8)
[2016-08-21 05:33] LABS: ALBUMIN/GLOBULIN RATIO 0.58; BILIRUBIN,DIRECT 3.3 mg/dl (0.00-0.20); BILIRUBIN,INDIRECT 0.9 mg/dl (0-1.1); BILIRUBIN,TOTAL 4.2 mg/dl (0.2-1.3); CALCIUM 7.8 mg/dl (8.4-10.2); CREATININE 0.57 mg/dl (0.61-1.24); POTASSIUM 4.1 mmol/L (3.5-5.1); TOTAL PROTEIN 5.4 g/dl (6.1-8.1)
[2016-08-21 08:08] VITALS: BP 85/50; RESP 18
[2016-08-21] MEDS: FAMOTIDINE 20 MG TAB PO SCH ×2 (08:26→20:48)
--- NOTE | 2016-08-21 08:52 | PN ---
DATE: 08/21/2016 SUBJECTIVE: Clinically, there is no significant change. The patient still has poor appetite. LABORATORY DATA: His LFTs essentially remain unchanged. Of note is the fact that the patient's CA 19-9 is 869 and CEA is 7.2. PLAN: Continue workup and evaluation by GI. There are no new surgical recommendations at this time. I will sign off and see again p.r.n. at you r request. Dictated By: ELMIRA SWAN/CONSUELO Conf#: [id number] DID#: [id number]
--- NOTE | 2016-08-21 12:23 | CONS ---
Date/Time of Note Date/Time of Note DATE: 08/21/16 TIME: 12:07 Assessment/Plan Assessment/Plan Chief Complaint/Hosp Course Mr.Eyasu Arroyo is a 21-year-old male with a history of asthma who presented to the emergency room for further evaluation of nausea, vomiting, and abdominal pain. Patient denies hematemesis, fever, chills, diarrhea, hematochezia, sick contacts, and recent travel outside of the [place]. Patient reports intermittent vomiting with chronic nausea and abdominal pain for the last 2 weeks. He also reports losing 4-6 pounds over this period. He reports previous history of abdominal pain for the last year with 50 pound weight loss. About a year ago he used to weigh 185 pounds and he intentionally wanted to lose about 20 pounds, but he continued to lose weight because of the vomiting and the decreased p.o. intake. Patient also has a history of joint pains and swelling for the last year as well. Patient states last travel to [facility] was a year ago. Patient said he was in the process of getting additional workup for autoimmune causes of joint pains. Patient denies diagnosis of lupus. Problems: Additional Assessment/Plan Transaminitis/jaundice Evaluate for pancreatitis versus autoimmune etiology versus transient elevation Rule out choledocholithiasis IVF Hydration Nausea and pain control MRCP: 1. Hepatomegaly is noted. Hepatic periportal edema is identified, which can be seen in the setting of hepatitis. 2. Splenomegaly is noted measuring 14 cm. 3. There is mild upper abdominal ascites. 4. Circumferential gallbladder wall thickening is noted, likely reactive secondary to underlying liver disease. No evidence of cholelithiasis, cholecystitis or biliary dilatation is identified. 5. There is mild anasarca. ERCP if clinically indicated, pt advised of R/B/A of procedure and she provides informed consent to proceed Monitor LFTs, amylase, lipase Surgery following Asthma Management per Primary Joint pain Management per Primary May require rheumatology consult Autoimmune markers in process Further recommendations depend on clinical course Patient seen in collaboration with Dr. Ortiz Consultation Date/Type/Reason Admit Date/Time August 19, 2016 at 21:48 Initial Consult Date Type of Consultation: Gastroenterology 24 HR Interval Summary Free Text/Dictation Pt tolerating diet Awaiting autoimmune markers may need Heme/Onc consult based on CEA and CA 19-9 values Exam/Review of Systems Vital Signs Vitals Vital Signs Date Time Temp Pulse Resp B/P Pulse Ox O2 Delivery O2 Flow Rate FiO2 08/21/16 08:08 98.1 82 18 85/50 96 08/20/16 03:00 Room Air Intake and Output 08/20/16 08/20/16 08/21/16 15:00 23:00 07:00 Intake Total 900 ml 1600 ml Balance 900 ml 1600 ml Exam Constitutional: alert, oriented, well developed, thin Psych: nl mood/affect Head: normocephalic Eyes: EOMI, nl conjunctiva, nl lids, anicteric sclera ENMT: nl external ears & nose, nl lips & teeth, nl nasal mucosa & septum Respiratory: clear to auscultation, normal air movement Cardiovascular: regular rate and rhythm Gastrointestinal: soft, non-tender Musculoskeletal: nl extremities to inspection Neurological: CREDIT ANALYSIS MANAGER II-XII intact Results Result Diagram: 08/21/16 0412 08/21/16 0412 Results 24 hrs Laboratory Tests Test 08/20/16 15:20 08/21/16 04:12 Alpha Fetoprotein 2.77 Carcinoembryonic Antigen 7.2 H White Blood Count 5.8 Red Blood Count 3.96 L Hemoglobin 11.3 L Hematocrit 33.3 L Mean Corpuscular Volume 84.1 Mean Corpuscular Hemoglobin 28.5 L Mean Corpuscular Hemoglobin Concent 33.9 Red Cell Distribution Width 15.7 H Platelet Count 166 Mean Platelet Volume 12.2 H Neutrophils % 47.9 Lymphocytes % 30.5 Monocytes % 13.3 H Eosinophils % 7.8 H Basophils % 0.3 Nucleated Red Blood Cells % 0.0 Neutrophils # 2.8 Lymphocytes # 1.8 Monocytes # 0.8 Eosinophils # 0.5 Basophils # 0.0 Nucleated Red Blood Cells # 0.0 Sodium Level 132 L Potassium Level 4.1 Chloride Level 105 Carbon Dioxide Level 26 Anion Gap 5 L Blood Urea Nitrogen 9 Creatinine 0.57 L Glucose Level 81 Calcium Level 7.8 L Magnesium Level 1.5 L Total Bilirubin 4.2 H Direct Bilirubin 3.30 H Indirect Bilirubin 0.9 Aspartate Amino Transf (AST/SGOT) 572 H Alanine Aminotransferase (ALT/SGPT) 429 H Alkaline Phosphatase 176 H Total Protein 5.4 L Albumin 2.0 L Globulin 3.40 H Albumin/Globulin Ratio 0.58 Medications Medications Current Medications Ondansetron HCl (Zofran Inj) 4 mg Q6H PRN IV NAUSEA AND/OR VOMITING; Start 03/26 at 22:30 Morphine Sulfate (morphine) 2 mg Q4H PRN IV SEVERE PAIN LEVEL 7-10; Start 08/19 at 22:30 Famotidine (Pepcid) 20 mg Q12 PO Last administered on 08/21/16t 08:26; Admin Dose 20 MG; Start 08/20/16 at 09:00 SHANNAN KENNEDY August 21, 2016 12:17
[2016-08-21] MEDS ORDERED: INDOMETHACIN 50 MG SUPP PR SCH (13:00)
[2016-08-21] MEDS ORDERED: MAGNESIUM SULFATE 4 GM/100 ML 100 ML IVPB ONE (14:00)
--- NOTE | 2016-08-21 17:34 | PN ---
Date/Time of Note Date/Time of Note DATE: 08/21/16 TIME: 17:30 Assessment/Plan VTE Prophylaxis VTE Prophylaxis Intervention: ambulation Lines/Catheters IV C[facility]ter Type (from [facility] Peripheral IV Urinary Cath still in place: No Assessment/Plan Chief Complaint/Hosp Course 1. Jaundice with hepatitis -LFTs have trended down since admission -Workup for autoimmune hepatitis is pending, hepatitis viral panel is negative -GI consult is appreciated -MRCP shows hepatitis and splenomegaly otherwise no significant findings 2. Joint pain with swollen hands-this is a chronic issue -Patient will need outpatient follow-up with smoke jumper, autoimmune workup is pending -Patient has history of positive MAGI in the past, will test for anti-double- stranded DNA 3. History of asthma-stable Prophylaxis: Ambulation Problems: Subjective 24 Hr Interval Summary Constitutional: no complaints Exam/Review of Systems Vital Signs Vitals Vital Signs Date Time Temp Pulse Resp B/P Pulse Ox O2 Delivery O2 Flow Rate FiO2 08/21/16 08:08 98.1 82 18 85/50 96 08/20/16 03:00 Room Air Intake and Output 08/20/16 08/20/16 08/21/16 15:00 23:00 07:00 Intake Total 900 ml 1600 ml Balance 900 ml 1600 ml Exam Constitutional: alert, oriented Respiratory: clear to auscultation Cardiovascular: regular rate and rhythm Gastrointestinal: non-tender, soft, No distended Musculoskeletal: nl extremities to inspection Results Result Diagram: 08/21/16 0412 08/21/16 0412 Results 24 hrs Laboratory Tests Test 08/21/16 04:12 White Blood Count 5.8 Red Blood Count 3.96 L Hemoglobin 11.3 L Hematocrit 33.3 L Mean Corpuscular Volume 84.1 Mean Corpuscular Hemoglobin 28.5 L Mean Corpuscular Hemoglobin Concent 33.9 Red Cell Distribution Width 15.7 H Platelet Count 166 Mean Platelet Volume 12.2 H Neutrophils % 47.9 Lymphocytes % 30.5 Monocytes % 13.3 H Eosinophils % 7.8 H Basophils % 0.3 Nucleated Red Blood Cells % 0.0 Neutrophils # 2.8 Lymphocytes # 1.8 Monocytes # 0.8 Eosinophils # 0.5 Basophils # 0.0 Nucleated Red Blood Cells # 0.0 Sodium Level 132 L Potassium Level 4.1 Chloride Level 105 Carbon Dioxide Level 26 Anion Gap 5 L Blood Urea Nitrogen 9 Creatinine 0.57 L Glucose Level 81 Calcium Level 7.8 L Magnesium Level 1.5 L Total Bilirubin 4.2 H Direct Bilirubin 3.30 H Indirect Bilirubin 0.9 Aspartate Amino Transf (AST/SGOT) 572 H Alanine Aminotransferase (ALT/SGPT) 429 H Alkaline Phosphatase 176 H Total Protein 5.4 L Albumin 2.0 L Globulin 3.40 H Albumin/Globulin Ratio 0.58 Medications Medications Current Medications Ondansetron HCl (Zofran Inj) 4 mg Q6H PRN IV NAUSEA AND/OR VOMITING; Start 03/26 at 22:30 Morphine Sulfate (morphine) 2 mg Q4H PRN IV SEVERE PAIN LEVEL 7-10; Start 08/19 at 22:30 Famotidine 20 mg 20 mg Q12 PO Last administered on 08/21/16 08:26; Admin Dose 20 MG; Start 08/20/16 at 09:00 Magnesium Sulfate (Magnesium Sulfate 4 Gm/100 ml) 100 ml @ 25 mls/hr ONCE ONCE IVPB Last administered on 08/21/16 14:43; Admin Dose 25 MLS/HR; Start at 14:00; Stop 08/21/16 at 17:59 JULIA BAKER August 21, 2016 17:34
[2016-08-21 20:48] VITALS: BP 95/58; RESP 16
[2016-08-22] MEDS: ALBUTEROL 18 GM INHALER INH SCH ×4 (02:00→20:00)
[2016-08-22 05:09] LABS: ADD SCAN DIFF NO
[2016-08-22 05:14] LABS: BASOPHILS % 0.4 % (0.0-2.0); EOSINOPHILS # 0.4 10^3/ul (0.0-0.5); EOSINOPHILS % 7.4 % (0.0-7.0); HEMATOCRIT 32.3 % (42.0-52.0); HEMOGLOBIN 10.9 g/dl (14.0-18.0); LYMPHOCYTES # 1.5 10^3/ul (0.8-2.9); LYMPHOCYTES % 27.8 % (15.0-51.0); MEAN CORPUSCULAR HEMOGLOBIN 28.2 pg (29.0-33.0); MEAN CORPUSCULAR HGB CONC 33.7 g/dl (32.0-37.0); MEAN CORPUSCULAR VOLUME 83.7 fl (82.0-101.0); MEAN PLATELET VOLUME 12.7 fl (7.4-10.4); MONOCYTE # 0.8 10^3/ul (0.3-0.9); MONOCYTES % 14.3 % (0.0-11.0); NEUTROPHIL # 2.6 10^3/ul (1.6-7.5); NEUTROPHILS % 49.7 % (39.0-77.0); PLATELET COUNT 176 10^3/UL (140-415); RED BLOOD COUNT 3.86 10^6/ul (4.70-6.10); RED CELL DISTRIBUTION WIDTH 15.9 % (11.5-14.5); WHITE BLOOD COUNT 5.3 10^3/ul (4.8-10.8)
[2016-08-22 05:37] LABS: ALBUMIN 1.9 g/dl (3.3-4.9)
[2016-08-22 05:38] LABS: POTASSIUM 3.7 mmol/L (3.5-5.1)
[2016-08-22 05:40] LABS: BILIRUBIN,DIRECT 2.6 mg/dl (0.00-0.20); BILIRUBIN,INDIRECT 0.8 mg/dl (0-1.1); BILIRUBIN,TOTAL 3.4 mg/dl (0.2-1.3); CREATININE 0.56 mg/dl (0.61-1.24)
[2016-08-22 05:41] LABS: ALBUMIN/GLOBULIN RATIO 0.55; CALCIUM 7.7 mg/dl (8.4-10.2); TOTAL PROTEIN 5.3 g/dl (6.1-8.1)
[2016-08-22 06:16] LABS: AMYLASE 80 U/L (11-123)
[2016-08-22] MEDS: FAMOTIDINE 20 MG TAB PO SCH ×2 (08:09→22:21)
[2016-08-22 10:23] VITALS: BP 97/53; RESP 18
[2016-08-22 11:59] LABS: C-REACTIVE PROTEIN 1.2 mg/dl (0.0-0.9)
[2016-08-22 12:10] LABS: CHOL/HDL RATIO 6.2 RATIO
--- NOTE | 2016-08-22 12:35 | PN ---
DATE: 08/22/2016 TIME OF EVALUATION: 11:30 a.m. SUBJECTIVE DATA: Complains of some nausea. OBJECTIVE DATA: VITAL SIGNS: Temperature 98.2, pulse rate 72, respiratory rate 18, blood pressure 97/53 and oxygen saturation 100% on room air. GENERAL: This is a 21-year-old male patient lying in bed in no apparent distress. HEENT: Head normocephalic and atraumatic. Eyes icteric sclerae. Conjunctivae clear. ENT: Nasal septum is midline. Oral mucosa is moist. NECK: Supple. No JVD noticed. RESPIRATORY: Bilaterally clear to auscultation. No adventitious breath sounds heard. No use of accessory muscles of respiration. CARDIAC: Regular rate and rhythm. ABDOMEN: Soft, nontender, nondistended. Bowel sounds positive in all 4 quadrants. GENITOURINARY: Deferred. EXTREMITIES: No cyanosis, no clubbing, no edema. Peripheral pulses palpable. Tenderness in the joints. NEUROLOGIC: The patient is awake, alert and oriented. Cranial nerves are grossly intact. LABORATORY AND DIAGNOSTIC DATA: WBC 5.3, hemoglobin 10.9, hematocrit 32.5, platelet count 176. Sodium 133, potassium 3.7, chloride 100, carbon dioxide 20 , anion gap 9, BUN 8, creatinine 0.56, glucose 87, calcium 7.7, total bilirubin 3.4, direct bilirubin 2.6, indirect bilirubin 0.8, AST of 594, ALT 404, alkaline phosphatase 180. Total protein 5.3, albumin 1.9. ASSESSMENT AND PLAN: 1. Hyperbilirubinemia with transaminitis, etiology unclear. Hepatitis panel negative. The patient is being evaluated for any autoimmune hepatitis. 2. Positive tumor markers. The patient has positive CA 19-9 and CEA. However , the patient's alpha fetoprotein is negative. We will involve oncology on the case. 3. Polyarthritis with decreased range of motion. Etiology unclear. We will obtain an ESR and C-reactive protein on this patient. We will await further workup including MAGI on this patient. 4. Asthma. Stable. Continue p.r.n. inhaled bronchodilators. 5. Normocytic anemia. Etiology unclear. We will monitor the H and H closely. We will order an iron panel. 6. Fluid, electrolytes and nutrition. Regular diet as tolerated. 7. Deep venous thrombosis prophylaxis. Ambulation. 8. Gastrointestinal prophylaxis. Histamine 2 receptor blockers. PLAN: Continue inpatient monitoring. Await blood work including small muscle antibody. Obtain oncology evaluation. Case discussed with Dr. Hartley. The plan of care was explained to the patient's family who was at the bedside. CEDRICK HARTLEY MD, AM/CONSUELO Conf#: [id number] DID#: [id number]
--- NOTE | 2016-08-22 13:18 | CONS ---
Date/Time of Note Date/Time of Note DATE: 08/22/16 TIME: 13:01 Assessment/Plan Assessment/Plan Chief Complaint/Hosp Course The patient is a 21 year old male with hyperbilirubinemia, trending down since admission, of unclear etiology with negative hepatitis panel, undergoing work- up for autoimmune hepatitis, with significantly elevated CA 19-9 at 869 (0-37) and CEA mildly elevated at 7.2 (0-5). AFP normal at 2.77 (0-7.21). - MRCP 08/20/16 demonstrated hepatomegaly at 20 cm with no focal hepatic mass is identified, hepatic periportal edema is noted, which can be seen in the setting of hepatitis. Gallbladder is contracted, and demonstrates circumferential wall edema, likely reactive secondary to underlying liver disease. Splenomegaly is noted measuring 14 cm. Biliary tree, pancreas, adrenal glands and kidneys are unremarkable. There is no retroperitoneal or terrence hepatis lymphadenopathy. Mild upper abdominal ascites is noted. - Appreciate GI recs. Would agree with ERCP. - If ERCP negative, consider EUS to rule out pancreaticobiliary lesion. CA 19-9 is significantly elevated and may be due to underlying inflammatory/autoimmune process, however would need to rule out underlying pancreaticobiliary malignancy such as pancreatic or intrahepatic cholangiocarcinoma. Patient can follow-up with us as an outpatient for EUS/GI referral. # Normocytic anemia, will check iron panel, ferritin, B12/folate, MMA, homocystine, TSH, LDH, haptoglobin, retic count. Pending MAGI. Problems: Consultation Date/Type/Reason Admit Date/Time August 19, 2016 at 21:48 Date of Consultation: August 22, 2016 Type of Consultation: Oncology Reason for Consultation Elevated CA 19-9, CEA Hx of Present Illness The patient is 21-year-old [place] male with a history of asthma who presented to the emergency department with abdominal pain, vomiting, jaundice and swollen hands. He stated that he has had the RUQ abdominal pain, N/V and jaundice for 2.5 weeks. He has had some constipation and pale stool but no diarrhea. No F/C. He states that the abdominal pain comes and goes and that eating makes his nausea worse. He lost 6 pounds in the past 2 weeks and 50 pounds in the past year, unintentional. He was actually referred to Dr. Diana, the wood pattern maker, who actually already saw the patient. The patient further stated that he has been well up until about a year ago when he started noticing that both of his hands were swollen. At that time, he also started having joint pains and generalized weakness. He did see a doctor who told him just to exercise his hands. Until this day, his hands are somehow swollen and he cannot make a fist because of pain and also there is some limitation. He did travel back to [facility] for a visit about a year ago. He had a right upper quadrant ultrasound which shows possible trace amount of right perinephric fluid, enlarged and a prominent pancreas. His gallbladder was contracted causing limited visualization, but there was no evidence of gallstones. CT abdomen and pelvis with contrast was done which showed diffuse gallbladder wall edema. Nonspecific mild periportal edema. A small amount of ascites. The findings could be secondary to hepatitis or hepatic congestion. MRCP demonstrated hepatomegaly without focal hepatic mass and splenomegaly. Musculoskeletal: bone/joint pain Past Medical History Polyarthritis with decreased range of motion, Asthma, low Vitamin D level Past Surgical History Past Surgical Hx: no surgical history Family History Significant Family History: no pertinent family hx Social History Alcohol Use: none Smoking Status: Never smoker Exam/Review of Systems Vital Signs Vitals Vital Signs Date Time Temp Pulse Resp B/P Pulse Ox O2 Delivery O2 Flow Rate FiO2 08/22/16 10:23 98.2 72 18 97/53 100 08/20/16 03:00 Room Air Intake and Output 08/21/16 08/21/16 08/22/16 14:59 22:59 06:59 Intake Total 500 ml 940 ml 800 ml Balance 500 ml 940 ml 800 ml Exam Constitutional: alert, oriented Psych: no complaints Eyes: icteric Neck: supple Respiratory: clear to auscultation Cardiovascular: regular rate and rhythm Gastrointestinal: non-tender, soft Musculoskeletal: nl extremities to inspection Neurological: RADIO RIGGER II-XII intact Results Result Diagram: 08/22/16 0410 08/22/16 041 Results 24 hrs Laboratory Tests Test 08/22/16 04:10 White Blood Count 5.3 Red Blood Count 3.86 L Hemoglobin 10.9 L Hematocrit 32.3 L Mean Corpuscular Volume 83.7 Mean Corpuscular Hemoglobin 28.2 L Mean Corpuscular Hemoglobin Concent 33.7 Red Cell Distribution Width 15.9 H Platelet Count 176 Mean Platelet Volume 12.7 H Neutrophils % 49.7 Lymphocytes % 27.8 Monocytes % 14.3 H Eosinophils % 7.4 H Basophils % 0.4 Nucleated Red Blood Cells % 0.0 Neutrophils # 2.6 Lymphocytes # 1.5 Monocytes # 0.8 Eosinophils # 0.4 Basophils # 0.0 Nucleated Red Blood Cells # 0.0 Erythrocyte Sedimentation Rate 3 Sodium Level 133 L Potassium Level 3.7 Chloride Level 103 Carbon Dioxide Level 25 Anion Gap 9 Blood Urea Nitrogen 8 Creatinine 0.56 L Glucose Level 87 Calcium Level 7.7 L Magnesium Level 2.0 Total Bilirubin 3.4 H Direct Bilirubin 2.60 H Indirect Bilirubin 0.8 Aspartate Amino Transf (AST/SGOT) 594 H Alanine Aminotransferase (ALT/SGPT) 404 H Alkaline Phosphatase 180 H Lactate Dehydrogenase 732 H C-Reactive Protein 1.2 H Total Protein 5.3 L Albumin 1.9 L Globulin 3.40 H Albumin/Globulin Ratio 0.55 Triglycerides Level 157 H Cholesterol Level 69 L LDL Cholesterol, Calculated 27 HDL Cholesterol 11 L Cholesterol/HDL Ratio 6.2 Amylase Level 80 Lipase 214 Medications Medications Current Medications Ondansetron HCl (Zofran Inj) 4 mg Q6H PRN IV NAUSEA AND/OR VOMITING; Start 03/26 at 22:30 Morphine Sulfate (morphine) 2 mg Q4H PRN IV SEVERE PAIN LEVEL 7-10; Start 08/19 at 22:30 Famotidine (Pepcid) 20 mg Q12 PO Last administered on 08/22/16 08:09; Admin Dose 20 MG; Start 08/20/16 at 09:00 CARO DOMINGO MD August 22, 2016 13:12
--- NOTE | 2016-08-22 15:17 | PN ---
Date/Time of Note Date/Time of Note DATE: 08/22/16 TIME: 15:08 Assessment/Plan VTE Prophylaxis VTE Prophylaxis Intervention: SCD's Lines/Catheters IV C[facility]ter Type (from [facility]): [facility]ine [facility] Urinary Cath still in place: No Assessment/Plan Assessment/Plan Assessment * Jaundice/Transaminitis Hepatocellular consider autoimmune hepatitis r/o extrahepatic,r/ o tumors MRI abdomen Hepatomegaly is noted. Hepatic periportal edema is identified, which can be seen in the setting of hepatitis. Splenomegaly is noted measuring 14 cm. . There is mild upper abdominal ascites. . Circumferential gallbladder wall thickening is noted, likely reactive secondary to underlying liver disease. No evidence of cholelithiasis, cholecystitis or biliary dilatation is identified. There is mild anasarca. * Elevated Ca 19-9 * Hx of asthma PLAN * continue present management * will await results ANCA,.ANSA,MAGI result Subjective 24 Hr Interval Summary Free Text/Dictation * Course reviewed with RN * patient seen and examined * still complains of on and off abdominal pain * MRI abdomen 08/19/2016 Hepatomegaly is noted. Hepatic periportal edema is identified, which can be seen in the setting of hepatitis. Splenomegaly is noted measuring 14 cm. . There is mild upper abdominal ascites. Circumferential gallbladder wall thickening is noted, likely reactive secondary to underlying liver disease. No evidence of cholelithiasis, cholecystitis or biliary dilatation is identified. . There is mild anasarca. Exam/Review of Systems Vital Signs Vitals Vital Signs Date Time Temp Pulse Resp B/P Pulse Ox O2 Delivery O2 Flow Rate FiO2 08/22/16 10:23 98.2 72 18 97/53 100 08/20/16 03:00 Room Air Intake and Output 08/21/16 08/21/16 08/22/16 15:00 23:00 07:00 Intake Total 500 ml 940 ml 800 ml Balance 500 ml 940 ml 800 ml Exam Constitutional: alert, oriented Eyes: PERRL, icteric Neck: non-tender, supple Respiratory: clear to auscultation, normal air movement Cardiovascular: nl pulses, regular rate and rhythm Gastrointestinal: bowel sounds, nl liver, spleen, non-tender, soft Musculoskeletal: nl extremities to inspection, nl gait and stance Extremities: normal pulses Neurological: nl speech Skin: nl turgor, No rash or lesions Results Result Diagram: 08/22/16 0410 08/22/16 0410 Results 24 hrs Laboratory Tests Test 08/22/16 04:10 White Blood Count 5.3 Red Blood Count 3.86 L Hemoglobin 10.9 L Hematocrit 32.3 L Mean Corpuscular Volume 83.7 Mean Corpuscular Hemoglobin 28.2 L Mean Corpuscular Hemoglobin Concent 33.7 Red Cell Distribution Width 15.9 H Platelet Count 176 Mean Platelet Volume 12.7 H Neutrophils % 49.7 Lymphocytes % 27.8 Monocytes % 14.3 H Eosinophils % 7.4 H Basophils % 0.4 Nucleated Red Blood Cells % 0.0 Neutrophils # 2.6 Lymphocytes # 1.5 Monocytes # 0.8 Eosinophils # 0.4 Basophils # 0.0 Nucleated Red Blood Cells # 0.0 Erythrocyte Sedimentation Rate 3 Sodium Level 133 L Potassium Level 3.7 Chloride Level 103 Carbon Dioxide Level 25 Anion Gap 9 Blood Urea Nitrogen 8 Creatinine 0.56 L Glucose Level 87 Calcium Level 7.7 L Magnesium Level 2.0 Ferritin 327.0 Total Bilirubin 3.4 H Direct Bilirubin 2.60 H Indirect Bilirubin 0.8 Aspartate Amino Transf (AST/SGOT) 594 H Alanine Aminotransferase (ALT/SGPT) 404 H Alkaline Phosphatase 180 H Lactate Dehydrogenase 732 H C-Reactive Protein 1.2 H Total Protein 5.3 L Albumin 1.9 L Globulin 3.40 H Albumin/Globulin Ratio 0.55 Triglycerides Level 157 H Cholesterol Level 69 L LDL Cholesterol, Calculated 27 HDL Cholesterol 11 L Cholesterol/HDL Ratio 6.2 Amylase Level 80 Lipase 214 Medications Medications Current Medications Ondansetron HCl (Zofran Inj) 4 mg Q6H PRN IV NAUSEA AND/OR VOMITING; Start 03/26 at 22:30 Morphine Sulfate (morphine) 2 mg Q4H PRN IV SEVERE PAIN LEVEL 7-10; Start 08/19 at 22:30 Famotidine (Pepcid) 20 mg Q12 PO Last administered on 08/22/16t 08:09; Admin Dose 20 MG; Start 08/20/16 at 09:00 JUNG PENA MD August 22, 2016 15:17
[2016-08-22 15:30] LABS: IRON 103 ug/dl (35-150)
[2016-08-22 15:39] LABS: TOTAL IRON BINDING CAPACITY 249 ug/dl (241-421)
[2016-08-22 20:48] VITALS: BP_SYST 103; BP_SYST 99; BP_DIAS 57; BP_DIAS 64; RESP 18
[2016-08-23] MEDS: ALBUTEROL 18 GM INHALER INH SCH ×4 (02:00→20:00)
[2016-08-23 06:09] LABS: ALBUMIN 1.9 g/dl (3.3-4.9)
[2016-08-23 06:10] LABS: POTASSIUM 3.7 mmol/L (3.5-5.1)
[2016-08-23 06:12] LABS: ALBUMIN/GLOBULIN RATIO 0.55; BILIRUBIN,DIRECT 2.1 mg/dl (0.00-0.20); BILIRUBIN,INDIRECT 0.9 mg/dl (0-1.1); CREATININE 0.5 mg/dl (0.61-1.24); TOTAL PROTEIN 5.3 g/dl (6.1-8.1)
[2016-08-23 06:13] LABS: ADD SCAN DIFF NO; CALCIUM 7.7 mg/dl (8.4-10.2)
[2016-08-23 06:14] LABS: ALBUMIN 1.8 g/dl (3.3-4.9); IRON 162 ug/dl (35-150)
[2016-08-23 06:17] LABS: BASOPHILS % 0.4 % (0.0-2.0); BILIRUBIN,INDIRECT 0.9 mg/dl (0-1.1); BILIRUBIN,TOTAL 2.9 mg/dl (0.2-1.3); EOSINOPHILS # 0.4 10^3/ul (0.0-0.5); EOSINOPHILS % 8.5 % (0.0-7.0); HEMOGLOBIN 11.2 g/dl (14.0-18.0); LYMPHOCYTES # 1.6 10^3/ul (0.8-2.9); LYMPHOCYTES % 33.6 % (15.0-51.0); MEAN CORPUSCULAR HEMOGLOBIN 28.6 pg (29.0-33.0); MEAN CORPUSCULAR HGB CONC 33.9 g/dl (32.0-37.0); MEAN CORPUSCULAR VOLUME 84.2 fl (82.0-101.0); MEAN PLATELET VOLUME 12.9 fl (7.4-10.4); MONOCYTE # 0.7 10^3/ul (0.3-0.9); MONOCYTES % 14.3 % (0.0-11.0); NEUTROPHIL # 2.1 10^3/ul (1.6-7.5); PLATELET COUNT 162 10^3/UL (140-415); RED BLOOD COUNT 3.92 10^6/ul (4.70-6.10); TOTAL PROTEIN 5.1 g/dl (6.1-8.1); WHITE BLOOD COUNT 4.8 10^3/ul (4.8-10.8)
[2016-08-23 06:18] LABS: RETICULOCYTE COUNT % 1.1 % (0.5-1.5)
[2016-08-23 06:24] LABS: TOTAL IRON BINDING CAPACITY 240 ug/dl (241-421)
[2016-08-23 06:32] LABS: THYROID STIMULATING HORMONE 2.24 MIU/L (0.465-4.680)
[2016-08-23 07:07] LABS: FOLATE 7.2 ng/ml (2.8-20.0)
[2016-08-23 08:00] LABS: AMYLASE 60 U/L (11-123)
[2016-08-23] MEDS: FAMOTIDINE 20 MG TAB PO SCH ×2 (08:08→20:21)
[2016-08-23 08:12] VITALS: BP 82/50; RESP 16
--- NOTE | 2016-08-23 09:49 | CONS ---
Date/Time of Note Date/Time of Note DATE: 08/23/16 TIME: 09:48 Assessment/Plan Assessment/Plan Chief Complaint/Hosp Course The patient is a 21 year old male with hyperbilirubinemia, trending down since admission, of unclear etiology with negative hepatitis panel, undergoing work- up for autoimmune hepatitis, with significantly elevated CA 19-9 at 869 (0-37) and CEA mildly elevated at 7.2 (0-5). AFP normal at 2.77 (0-7.21). - MRCP 08/20/16 demonstrated hepatomegaly at 20 cm with no focal hepatic mass is identified, hepatic periportal edema is noted, which can be seen in the setting of hepatitis. Gallbladder is contracted, and demonstrates circumferential wall edema, likely reactive secondary to underlying liver disease. Splenomegaly is noted measuring 14 cm. Biliary tree, pancreas, adrenal glands and kidneys are unremarkable. There is no retroperitoneal or terrence hepatis lymphadenopathy. Mild upper abdominal ascites is noted. - Appreciate GI recs. Would agree with ERCP. - If ERCP negative, consider EUS to rule out pancreaticobiliary lesion. CA 19-9 is significantly elevated and may be due to underlying inflammatory/autoimmune process, however would need to rule out underlying pancreaticobiliary malignancy such as pancreatic or intrahepatic cholangiocarcinoma. Patient can follow-up with us as an outpatient for EUS/GI referral. # Normocytic anemia, iron panel consistent with anemia of chronic inflammation, B12/folate/TSH WNL, retic count inappropriately low, LDH elevated, haptoglobin pending; pending MMA, homocysteine. Pending MAGI. Problems: Consultation Date/Type/Reason Admit Date/Time August 19, 2016 at 21:48 Initial Consult Date 08/22/16 Type of Consultation: Oncology 24 HR Interval Summary Free Text/Dictation No complaints, states pain is better. Exam/Review of Systems Vital Signs Vitals Vital Signs Date Time Temp Pulse Resp B/P Pulse Ox O2 Delivery O2 Flow Rate FiO2 08/23/16 08:12 98.0 77 16 82/50 100 08/20/16 03:00 Room Air Intake and Output 08/22/16 08/22/16 08/23/16 15:00 23:00 07:00 Intake Total 840 ml 400 ml Balance 840 ml 400 ml Exam Constitutional: alert, oriented Psych: no complaints Eyes: icteric Neck: supple Respiratory: clear to auscultation Cardiovascular: regular rate and rhythm Gastrointestinal: non-tender, soft Musculoskeletal: nl extremities to inspection Neurological: CONTENT ENGINEER II-XII intact Results Result Diagram: 08/23/166 08/23/16 0446 Results 24 hrs Laboratory Tests Test 08/23/16 04:46 White Blood Count 4.8 Red Blood Count 3.92 L Hemoglobin 11.2 L Hematocrit 33.0 L Mean Corpuscular Volume 84.2 Mean Corpuscular Hemoglobin 28.6 L Mean Corpuscular Hemoglobin Concent 33.9 Red Cell Distribution Width 16.0 H Platelet Count 162 Mean Platelet Volume 12.9 H Neutrophils % 43.0 Lymphocytes % 33.6 Monocytes % 14.3 H Eosinophils % 8.5 H Basophils % 0.4 Nucleated Red Blood Cells % 0.0 Neutrophils # 2.1 Lymphocytes # 1.6 Monocytes # 0.7 Eosinophils # 0.4 Basophils # 0.0 Nucleated Red Blood Cells # 0.0 Absolute Reticulocyte Count 0.046 Percent Reticulocyte Count 1.1 Sodium Level 134 L Potassium Level 3.7 Chloride Level 101 Carbon Dioxide Level 27 Anion Gap 10 Blood Urea Nitrogen 7 Creatinine 0.50 L Glucose Level 80 Calcium Level 7.7 L Magnesium Level 1.6 L Iron Level 162 #H Total Iron Binding Capacity 240 L Percent Iron Saturation 68 H Ferritin 354.0 Total Bilirubin 2.9 H Direct Bilirubin 2.00 H Indirect Bilirubin 0.9 Aspartate Amino Transf (AST/SGOT) 609 H Alanine Aminotransferase (ALT/SGPT) 417 H Alkaline Phosphatase 183 H Lactate Dehydrogenase 663 H Total Protein 5.1 L Albumin 1.8 L Globulin 3.40 H Albumin/Globulin Ratio 0.55 Amylase Level 60 Lipase 150 Vitamin B12 Level 815 Folate 7.2 Thyroid Stimulating Hormone (TSH) 2.240 Medications Medications Current Medications Ondansetron HCl (Zofran Inj) 4 mg Q6H PRN IV NAUSEA AND/OR VOMITING; Start 03/26 at 22:30 Morphine Sulfate (morphine) 2 mg Q4H PRN IV SEVERE PAIN LEVEL 7-10; Start 08/19 at 22:30 Famotidine (Pepcid) 20 mg Q12 PO Last administered on 08/23/16t 08:08; Admin Dose 20 MG; Start 08/20/16 at 09:00 CARO DOMINGO MD August 23, 2016 09:49
[2016-08-23 11:34] LABS: ANA SCREEN NEGATIVE (NEGATIVE)
[2016-08-23 12:53] LABS: MITOCHONDRIAL TB NEGATIVE (NEGATIVE)
--- NOTE | 2016-08-23 14:08 | PN ---
Date/Time of Note Date/Time of Note DATE: 08/23/16 TIME: 14:06 Assessment/Plan VTE Prophylaxis VTE Prophylaxis Intervention: SCD's Lines/Catheters [facility] Urinary Cath still in place: No Assessment/Plan Chief Complaint/Hosp Course ASSESSMENT AND PLAN: 1. Hyperbilirubinemia with transaminitis, possibly autoimmune hepatitis. Hepatitis panel negative. The patient is being evaluated for an autoimmune hepatitis. 2. Positive tumor markers. The patient has positive CA 19-9 and CEA. Also, the patient's alpha fetoprotein is negative. We will involve oncology on the case. 3. Polyarthritis with decreased range of motion. Etiology unclear. We will obtain an ESR and C-reactive protein on this patient. We will await further workup including MAGI on this patient. The patient ideally needs rheumatology evaluation. 4. Asthma. Stable. Continue p.r.n. inhaled bronchodilators. 5. Normocytic anemia. Etiology unclear. We will monitor the H and H closely. We will order an iron panel. Deep venous thrombosis prophylaxis. Ambulation. Gastrointestinal prophylaxis. Histamine 2 receptor blockers. PLAN: Continue inpatient monitoring. Await blood work including small muscle antibody. Follow-up oncology and mosaic tile maker recommendations. Problems: Subjective 24 Hr Interval Summary Free Text/Dictation Patient denies of any chest pain or shortness of breath Denies of any abdominal discomfort No nausea vomiting diarrhea Exam/Review of Systems Vital Signs Vitals Vital Signs Date Time Temp Pulse Resp B/P Pulse Ox O2 Delivery O2 Flow Rate FiO2 08/23/16 08:12 98.0 77 16 82/50 100 08/20/16 03:00 Room Air Intake and Output 08/22/16 08/22/16 08/23/16 15:00 23:00 07:00 Intake Total 840 ml 400 ml Balance 840 ml 400 ml Exam General: The patient is well-developed, Not in acute distress. HEENT: Conjunctivae is icteric, normocephalic. The pupils are equal and round . Neck: Supple with full range of motion. Chest: Normal expansion of the thorax during inspiration Lungs: Clear to auscultation bilaterally Heart: Normal S1-S2, Regular rhythm and rate. Abdomen: Soft , nontender, nondistended , bowel sounds are present. Extremities: Normal to inspection, no edema no cyanosis Neurologic: Normal mental status,The patient is awake, alert and oriented . Results Result Diagram: 08/23/16 0446 08/23/16 0446 Results 24 hrs Laboratory Tests Test 08/23/16 04:46 White Blood Count 4.8 Red Blood Count 3.92 L Hemoglobin 11.2 L Hematocrit 33.0 L Mean Corpuscular Volume 84.2 Mean Corpuscular Hemoglobin 28.6 L Mean Corpuscular Hemoglobin Concent 33.9 Red Cell Distribution Width 16.0 H Platelet Count 162 Mean Platelet Volume 12.9 H Neutrophils % 43.0 Lymphocytes % 33.6 Monocytes % 14.3 H Eosinophils % 8.5 H Basophils % 0.4 Nucleated Red Blood Cells % 0.0 Neutrophils # 2.1 Lymphocytes # 1.6 Monocytes # 0.7 Eosinophils # 0.4 Basophils # 0.0 Nucleated Red Blood Cells # 0.0 Absolute Reticulocyte Count 0.046 Percent Reticulocyte Count 1.1 Sodium Level 134 L Potassium Level 3.7 Chloride Level 101 Carbon Dioxide Level 27 Anion Gap 10 Blood Urea Nitrogen 7 Creatinine 0.50 L Glucose Level 80 Calcium Level 7.7 L Magnesium Level 1.6 L Iron Level 162 #H Total Iron Binding Capacity 240 L Percent Iron Saturation 68 H Ferritin 354.0 Total Bilirubin 2.9 H Direct Bilirubin 2.00 H Indirect Bilirubin 0.9 Aspartate Amino Transf (AST/SGOT) 609 H Alanine Aminotransferase (ALT/SGPT) 417 H Alkaline Phosphatase 183 H Lactate Dehydrogenase 663 H Total Protein 5.1 L Albumin 1.8 L Globulin 3.40 H Albumin/Globulin Ratio 0.55 Amylase Level 60 Lipase 150 Vitamin B12 Level 815 Folate 7.2 Thyroid Stimulating Hormone (TSH) 2.240 Medications Medications Current Medications Ondansetron HCl (Zofran Inj) 4 mg Q6H PRN IV NAUSEA AND/OR VOMITING; Start 03/26 at 22:30 Morphine Sulfate (morphine) 2 mg Q4H PRN IV SEVERE PAIN LEVEL 7-10; Start 08/19 at 22:30 Famotidine (Pepcid) 20 mg Q12 PO Last administered on 08/23/16 08:08; Admin Dose 20 MG; Start 08/20/16 at 09:00 LORIE SUAREZ MD August 23, 2016 14:08
[2016-08-23] MEDS ORDERED: MAGNESIUM OXIDE 400 MG TAB PO ONE (14:30)
--- NOTE | 2016-08-23 14:44 | PN ---
Date/Time of Note Date/Time of Note DATE: 08/23/16 TIME: 14:41 Assessment/Plan VTE Prophylaxis VTE Prophylaxis Intervention: SCD's Lines/Catheters IV [facility] Type [facility] Sal[facility] Lock Urinary Cath still in place: No Assessment/Plan Assessment/Plan Jaundice/Transaminitis Hepatocellular consider autoimmune hepatitis r/o extrahepatic,r/ o tumors MRI abdomen Hepatomegaly is noted. Hepatic periportal edema is identified, which can be seen in the setting of hepatitis. Splenomegaly is noted measuring 14 cm. . There is mild upper abdominal ascites. . Circumferential gallbladder wall thickening is noted, likely reactive secondary to underlying liver disease. No evidence of cholelithiasis, cholecystitis or biliary dilatation is identified. There is mild anasarca. * Elevated Ca 19-9 * Hx of asthma PLAN * continue present management * ERCP risk and benefit discuss with patient agreed with the planned procedure Subjective 24 Hr Interval Summary Free Text/Dictation * Course reviewed with RN * Patient seen and examined * MAGI,SMA,MAGI negative Exam/Review of Systems Vital Signs Vitals Vital Signs Date Time Temp Pulse Resp B/P Pulse Ox O2 Delivery O2 Flow Rate FiO2 08/23/16 08:12 98.0 77 16 82/50 100 08/20/16 03:00 Room Air Intake and Output 08/22/16 08/22/16 08/23/16 15:00 23:00 07:00 Intake Total 840 ml 400 ml Balance 840 ml 400 ml Exam Constitutional: alert, oriented Psych: no complaints Eyes: icteric Neck: non-tender, supple Respiratory: clear to auscultation, normal air movement Cardiovascular: nl pulses, regular rate and rhythm Gastrointestinal: non-tender, soft Musculoskeletal: nl extremities to inspection Extremities: normal pulses Neurological: nl speech, nl strength Skin: nl turgor, No rash or lesions Results Result Diagram: 08/23/16 0446 08/23/16 0446 Results 24 hrs Laboratory Tests Test 08/23/16 04:46 White Blood Count 4.8 Red Blood Count 3.92 L Hemoglobin 11.2 L Hematocrit 33.0 L Mean Corpuscular Volume 84.2 Mean Corpuscular Hemoglobin 28.6 L Mean Corpuscular Hemoglobin Concent 33.9 Red Cell Distribution Width 16.0 H Platelet Count 162 Mean Platelet Volume 12.9 H Neutrophils % 43.0 Lymphocytes % 33.6 Monocytes % 14.3 H Eosinophils % 8.5 H Basophils % 0.4 Nucleated Red Blood Cells % 0.0 Neutrophils # 2.1 Lymphocytes # 1.6 Monocytes # 0.7 Eosinophils # 0.4 Basophils # 0.0 Nucleated Red Blood Cells # 0.0 Absolute Reticulocyte Count 0.046 Percent Reticulocyte Count 1.1 Sodium Level 134 L Potassium Level 3.7 Chloride Level 101 Carbon Dioxide Level 27 Anion Gap 10 Blood Urea Nitrogen 7 Creatinine 0.50 L Glucose Level 80 Calcium Level 7.7 L Magnesium Level 1.6 L Iron Level 162 #H Total Iron Binding Capacity 240 L Percent Iron Saturation 68 H Ferritin 354.0 Total Bilirubin 2.9 H Direct Bilirubin 2.00 H Indirect Bilirubin 0.9 Aspartate Amino Transf (AST/SGOT) 609 H Alanine Aminotransferase (ALT/SGPT) 417 H Alkaline Phosphatase 183 H Lactate Dehydrogenase 663 H Total Protein 5.1 L Albumin 1.8 L Globulin 3.40 H Albumin/Globulin Ratio 0.55 Amylase Level 60 Lipase 150 Vitamin B12 Level 815 Folate 7.2 Thyroid Stimulating Hormone (TSH) 2.240 Medications Medications Current Medications Ondansetron HCl (Zofran Inj) 4 mg Q6H PRN IV NAUSEA AND/OR VOMITING; Start 03/26 at 22:30 Morphine Sulfate (morphine) 2 mg Q4H PRN IV SEVERE PAIN LEVEL 7-10; Start 08/19 at 22:30 Famotidine (Pepcid) 20 mg Q12 PO Last administered on 08/23/16 08:08; Admin Dose 20 MG; Start 08/20/16 at 09:00 JUNG PENA MD August 23, 2016 14:44
[2016-08-23] MEDS ORDERED: INDOMETHACIN 50 MG SUPP PR ONE (15:00)
[2016-08-23 20:07] VITALS: BP 93/50; RESP 20
[2016-08-24] VITALS (21 sets, daily range): BP systolic 84–121; BP diastolic 46–65; PULSE 66–87; RESP 14–23
[2016-08-24] MEDS: ALBUTEROL 18 GM INHALER INH SCH ×4 (02:00→20:00)
[2016-08-24 05:14] LABS: ADD SCAN DIFF NO
[2016-08-24 05:23] LABS: BASOPHILS % 0.6 % (0.0-2.0); EOSINOPHILS # 0.5 10^3/ul (0.0-0.5); EOSINOPHILS % 8.6 % (0.0-7.0); HEMOGLOBIN 10.9 g/dl (14.0-18.0); LYMPHOCYTES # 1.6 10^3/ul (0.8-2.9); LYMPHOCYTES % 30.3 % (15.0-51.0); MEAN CORPUSCULAR HEMOGLOBIN 28.4 pg (29.0-33.0); MEAN CORPUSCULAR HGB CONC 34.1 g/dl (32.0-37.0); MEAN CORPUSCULAR VOLUME 83.3 fl (82.0-101.0); MEAN PLATELET VOLUME 12.4 fl (7.4-10.4); MONOCYTE # 0.8 10^3/ul (0.3-0.9); MONOCYTES % 15.5 % (0.0-11.0); NEUTROPHIL # 2.3 10^3/ul (1.6-7.5); NEUTROPHILS % 44.8 % (39.0-77.0); PLATELET COUNT 170 10^3/UL (140-415); RED BLOOD COUNT 3.84 10^6/ul (4.70-6.10); RED CELL DISTRIBUTION WIDTH 15.9 % (11.5-14.5); WHITE BLOOD COUNT 5.2 10^3/ul (4.8-10.8)
[2016-08-24 05:36] LABS: ALBUMIN/GLOBULIN RATIO 0.58; BILIRUBIN,INDIRECT 0.9 mg/dl (0-1.1); BILIRUBIN,TOTAL 2.9 mg/dl (0.2-1.3); CALCIUM 7.8 mg/dl (8.4-10.2); CREATININE 0.49 mg/dl (0.61-1.24); MAGNESIUM 1.7 mg/dl (1.7-2.5); POTASSIUM 3.9 mmol/L (3.5-5.1); TOTAL PROTEIN 5.4 g/dl (6.1-8.1)
[2016-08-24 05:37] LABS: BILIRUBIN,INDIRECT 0.9 mg/dl (0-1.1); BILIRUBIN,TOTAL 2.9 mg/dl (0.2-1.3); TOTAL PROTEIN 5.3 g/dl (6.1-8.1)
[2016-08-24 06:08] LABS: AMYLASE 62 U/L (11-123)
[2016-08-24] MEDS: FAMOTIDINE 20 MG TAB PO SCH ×2 (08:08→21:46)
--- NOTE | 2016-08-24 13:46 | CONS ---
Date/Time of Note Date/Time of Note DATE: 08/24/16 TIME: 13:46 Assessment/Plan Assessment/Plan Chief Complaint/Hosp Course The patient is a 21 year old male with hyperbilirubinemia, trending down since admission, of unclear etiology with negative hepatitis panel, undergoing work- up for autoimmune hepatitis, with significantly elevated CA 19-9 at 869 (0-37) and CEA mildly elevated at 7.2 (0-5). AFP normal at 2.77 (0-7.21). - MRCP 08/20/16 demonstrated hepatomegaly at 20 cm with no focal hepatic mass is identified, hepatic periportal edema is noted, which can be seen in the setting of hepatitis. Gallbladder is contracted, and demonstrates circumferential wall edema, likely reactive secondary to underlying liver disease. Splenomegaly is noted measuring 14 cm. Biliary tree, pancreas, adrenal glands and kidneys are unremarkable. There is no retroperitoneal or terrence hepatis lymphadenopathy. Mild upper abdominal ascites is noted. - Appreciate GI recs. Plan for ERCP per GI. - If ERCP negative, consider EUS to rule out pancreaticobiliary lesion. CA 19-9 is significantly elevated and may be due to underlying inflammatory/autoimmune process, however would need to rule out underlying pancreaticobiliary malignancy such as pancreatic or intrahepatic cholangiocarcinoma. Patient can follow-up with us as an outpatient for EUS/GI referral. # Normocytic anemia, iron panel consistent with anemia of chronic inflammation, B12/folate/TSH WNL, retic count inappropriately low, LDH elevated, haptoglobin pending; pending MMA, homocysteine. # Polyarthritis, MAGI negative, anti-mitochondrial Ab neg, smooth muscle Ab negative, ds DNA elevated at 384. Rheumatology follow-up. Problems: Consultation Date/Type/Reason Admit Date/Time August 19, 2016 at 21:48 Initial Consult Date 08/22/16 Type of Consultation: Oncology 24 HR Interval Summary Free Text/Dictation Patient states that he feels normal and denies pain at this time. Plan for ERCP tonight. 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 intact Results Result Diagram: 08/24/16 0425 08/24/16 0425 Results 24 hrs Laboratory Tests Test 08/24/16 04:25 White Blood Count 5.2 Red Blood Count 3.84 L Hemoglobin 10.9 L Hematocrit 32.0 L Mean Corpuscular Volume 83.3 Mean Corpuscular Hemoglobin 28.4 L Mean Corpuscular Hemoglobin Concent 34.1 Red Cell Distribution Width 15.9 H Platelet Count 170 Mean Platelet Volume 12.4 H Neutrophils % 44.8 Lymphocytes % 30.3 Monocytes % 15.5 H Eosinophils % 8.6 H Basophils % 0.6 Nucleated Red Blood Cells % 0.0 Neutrophils # 2.3 Lymphocytes # 1.6 Monocytes # 0.8 Eosinophils # 0.5 Basophils # 0.0 Nucleated Red Blood Cells # 0.0 Sodium Level 133 L Potassium Level 3.9 Chloride Level 103 Carbon Dioxide Level 27 Anion Gap 7 L Blood Urea Nitrogen 6 L Creatinine 0.49 L Glucose Level 92 Calcium Level 7.8 L Magnesium Level 1.7 Total Bilirubin 2.9 H Direct Bilirubin 2.00 H Indirect Bilirubin 0.9 Aspartate Amino Transf (AST/SGOT) 635 H Alanine Aminotransferase (ALT/SGPT) 460 H Alkaline Phosphatase 191 H Total Protein 5.4 L Albumin 2.0 L Globulin 3.40 H Albumin/Globulin Ratio 0.58 Amylase Level 62 Lipase 200 Medications Medications Current Medications Ondansetron HCl (Zofran Inj) 4 mg Q6H PRN IV NAUSEA AND/OR VOMITING; Start 03/26 at 22:30 Morphine Sulfate (morphine) 2 mg Q4H PRN IV SEVERE PAIN LEVEL 7-10; Start 08/19 at 22:30 Famotidine (Pepcid) 20 mg Q12 PO Last administered on 08/23/16t 20:21; Admin Dose 20 MG; Start 08/20/16 at 09:00 TOCARO MD August 24, 2016 13:46
[2016-08-24 17:01] LABS: HOMOCYSTEINE - CARDIOVASCULAR 5.8 umol/L (<11.4)
[2016-08-24] MEDS: ONDANSETRON 4 MG INJ IV PRN (17:09)
[2016-08-24] MEDS ORDERED: IOHEXOL 300MG/ML 30 ML BTL ONE (18:31)
[2016-08-24] MEDS ORDERED: INDOMETHACIN 50 MG SUPP PR ONE (18:31)
[2016-08-24] MEDS ORDERED: PROPOFOL 20 ML ONE (19:01)
[2016-08-24] MEDS ORDERED: LIDOCAINE 1% (MDV) 20 ML INJ ONE (19:01)
[2016-08-24] MEDS ORDERED: MIDAZOLAM 1 MG/ML 2 ML INJ ONE (19:01)
[2016-08-24] MEDS ORDERED: FENTAnyl 50 MCG/ML VIAL ONE (19:01)
[2016-08-24] MEDS ORDERED: SUCCINYLCHOLINE CHLORIDE 100 MG/5 ML SYG IV ONE (19:01)
[2016-08-24] MEDS ORDERED: FAMOTIDINE 20 MG INJ ONE (19:11)
[2016-08-24] MEDS ORDERED: DEXAMETHASONE 4 MG/ML 1 ML INJ ONE (19:11)
[2016-08-24] MEDS ORDERED: ONDANSETRON 4 MG INJ ONE (19:11)
[2016-08-24] MEDS ORDERED: PHENYLephrine (100 MCG/ML) 5ML SYG ONE (19:21)
[2016-08-24] MEDS ORDERED: METOCLOPRAMIDE 10 MG INJ ONE (19:24)
--- NOTE | 2016-08-24 19:42 | PN ---
Date/Time of Note Date/Time of Note DATE: 08/24/16 TIME: 19:39 Assessment/Plan VTE Prophylaxis VTE Prophylaxis Intervention: SCD's Lines/Catheters [facility] [place] [facility] Urinary Cath still in place: No Assessment/Plan Assessment/Plan 1. Hyperbilirubinemia with transaminitis, possibly autoimmune hepatitis. Hepatitis panel negative. The patient is being evaluated for an autoimmune hepatitis. 2. Positive tumor markers. The patient has positive CA 19-9 and CEA. Also, the patient's alpha fetoprotein is negative. We will involve oncology on the case. 3. Polyarthritis with decreased range of motion. Etiology unclear. 4. Asthma. Stable. Continue p.r.n. inhaled bronchodilators. 5. Normocytic anemia. Etiology unclear. We will monitor the H and H closely. We will order an iron panel. Deep venous thrombosis prophylaxis. Ambulation. Gastrointestinal prophylaxis. Histamine 2 receptor blockers. PLAN: Continue inpatient monitoring. Await blood work including small muscle antibody. s/p GI cosult, possibel ERCP plan, awaiting LFTs to improve better Subjective 24 Hr Interval Summary Free Text/Dictation Jaundice Improving but LFTs are still high, BP low Exam/Review of Systems Vital Signs Vitals Vital Signs Date Time Temp Pulse Resp B/P Pulse Ox O2 Delivery O2 Flow Rate FiO2 08/24/16 10:17 70 18 97 21 08/24/16 08:54 91/55 08/24/16 08:16 98.6 Intake and Output 08/23/16 08/23/16 08/24/16 15:00 23:00 07:00 Intake Total 1640 ml 300 ml Balance 1640 ml 300 ml Exam General: The patient is well-developed, Not in acute distress. HEENT: Conjunctivae is icteric, normocephalic. The pupils are equal and round . Neck: Supple with full range of motion. Chest: Normal expansion of the thorax during inspiration Lungs: Clear to auscultation bilaterally Heart: Normal S1-S2, Regular rhythm and rate. Abdomen: Soft , nontender, nondistended , bowel sounds are present. Extremities: Normal to inspection, no edema no cyanosis Neurologic: Normal mental status,The patient is awake, alert and oriented . Results Result Diagram: 08/24/16 0425 08/24/16 0425 Results 24 hrs Laboratory Tests Test 08/24/16 04:25 White Blood Count 5.2 Red Blood Count 3.84 L Hemoglobin 10.9 L Hematocrit 32.0 L Mean Corpuscular Volume 83.3 Mean Corpuscular Hemoglobin 28.4 L Mean Corpuscular Hemoglobin Concent 34.1 Red Cell Distribution Width 15.9 H Platelet Count 170 Mean Platelet Volume 12.4 H Neutrophils % 44.8 Lymphocytes % 30.3 Monocytes % 15.5 H Eosinophils % 8.6 H Basophils % 0.6 Nucleated Red Blood Cells % 0.0 Neutrophils # 2.3 Lymphocytes # 1.6 Monocytes # 0.8 Eosinophils # 0.5 Basophils # 0.0 Nucleated Red Blood Cells # 0.0 Sodium Level 133 L Potassium Level 3.9 Chloride Level 103 Carbon Dioxide Level 27 Anion Gap 7 L Blood Urea Nitrogen 6 L Creatinine 0.49 L Glucose Level 92 Calcium Level 7.8 L Magnesium Level 1.7 Total Bilirubin 2.9 H Direct Bilirubin 2.00 H Indirect Bilirubin 0.9 Aspartate Amino Transf (AST/SGOT) 635 H Alanine Aminotransferase (ALT/SGPT) 460 H Alkaline Phosphatase 191 H Total Protein 5.4 L Albumin 2.0 L Globulin 3.40 H Albumin/Globulin Ratio 0.58 Amylase Level 62 Lipase 200 Medications Medications Current Medications Ondansetron HCl (Zofran Inj) 4 mg Q6H PRN IV NAUSEA AND/OR VOMITING Last administered on 08/24/16 17:09; Admin Dose 4 MG; Start 08/19/16 at 22:30 Morphine Sulfate (morphine) 2 mg Q4H PRN IV SEVERE PAIN LEVEL 7-10; Start 08/19 at 22:30 Famotidine (Pepcid) 20 mg Q12 PO Last administered on 08/23/16 20:21; Admin Dose 20 MG; Start 08/20/16 at 09:00 SANTOS LYNCH MD August 24, 2016 19:42
[2016-08-24] MEDS ORDERED: HYDROmorphONE (0.2 MG/ML) 10ML SYG IV PRN (20:00)
[2016-08-24] MEDS ORDERED: MEPERIDINE 25 MG INJ IV PRN (20:00)
[2016-08-24] MEDS ORDERED: ONDANSETRON 4 MG INJ IV PRN (20:00)
[2016-08-24] MEDS ORDERED: PROCHLORPERAZINE 10 MG INJ IV PRN (20:00)
[2016-08-24] MEDS ORDERED: MIDAZOLAM 1 MG/ML 2 ML INJ IV PRN (20:00)
[2016-08-25 00:30] VITALS: BP 101/54; PULSE 65; RESP 18
[2016-08-25] MEDS: ALBUTEROL 18 GM INHALER INH SCH ×4 (02:00→20:00)
[2016-08-25 05:37] LABS: ADD SCAN DIFF NO
[2016-08-25 05:40] LABS: BASOPHILS % 0.2 % (0.0-2.0); EOSINOPHILS % 0.2 % (0.0-7.0); HEMATOCRIT 32.8 % (42.0-52.0); HEMOGLOBIN 11.4 g/dl (14.0-18.0); LYMPHOCYTES % 19.4 % (15.0-51.0); MEAN CORPUSCULAR HEMOGLOBIN 29.2 pg (29.0-33.0); MEAN CORPUSCULAR HGB CONC 34.8 g/dl (32.0-37.0); MEAN CORPUSCULAR VOLUME 84.1 fl (82.0-101.0); MEAN PLATELET VOLUME 12.1 fl (7.4-10.4); MONOCYTE # 0.4 10^3/ul (0.3-0.9); MONOCYTES % 7.9 % (0.0-11.0); NEUTROPHIL # 3.6 10^3/ul (1.6-7.5); NEUTROPHILS % 71.9 % (39.0-77.0); PLATELET COUNT 181 10^3/UL (140-415); RED CELL DISTRIBUTION WIDTH 15.7 % (11.5-14.5)
--- NOTE | 2016-08-25 05:56 | GILP ---
DATE OF PROCEDURE: PROCEDURE: Endoscopic retrograde cholangiopancreatography. PREMEDICATION: General anesthesia by anesthesiologist. SURGEON: Jung Ortiz MD. INSTRUMENT USED: Olympus side viewing panendoscope. TECHNIQUE: After informed consent, with the patient/relatives understanding the procedure, its indic ations, potential risks and complications, including but not limited to: allergic reaction, bleeding , perforation or infection, and after all pertinent questions were answered to the patients satisfac tion, the patient/relatives signed witnessed informed consent. Following this, premedication was administered slowly IV push under careful cardiovascular and respi ratory monitoring with pulse oximetry, automatic blood pressure and benefits technician. Once the sedative effect was achieved the patient was place in the prone position in the radiology s pecial procedures suite; the side viewing panendoscope was introduced and advanced under visual cont rol. Careful examination of the upper gastrointestinal tract, both on insertion as well as withdrawal of the instrument disclosed the following findings: ESOPHAGUS: The mucosa of the entire esophagus appears within normal limits. There is no evidence of esophagitis, varices, neoplasm or stricture. No Hiatal Hernia identified. STOMACH: Upon entrance to the stomach, air was insufflated, the gastric dennis distended normally. There are large amounts of partially digested food in the stomach. This was suctioned out to the be st of our ability, almost entirely. Otherwise, the mucosa appears unremarkable. PYLORUS: The pylorus appears patent and within normal limits, with no evidence of gastric outlet ob struction. DUODENUM: The duodenal mucosa was carefully examined in the duodenal bulb as well as the second por tion of the duodenum and appears unremarkable with no evidence of duodenitis, ulcer or neoplasm. AMPULLA OF VATER: The ampulla of Vater was identified and carefully examined appearing within dennis l limits. CANNULATION: At this point cannulation was accomplished without difficulty opacifying the biliary t ree which appears entirely unremarkable. The cystic duct is patent. The gallbladder is also ____. IMPRESSION: 1. Retained fluid in the stomach (suctioned out.) 2. ? gastroparesis. 3. Normal ampulla of Vater. 4. Normal cholangiogram. PLAN: Add Reglan, continue monitoring liver function tests, and further recommendations will depend on the patient's clinical course. Dictated By: JUNG ORTIZ MS/CONSUELO Conf#: [id number] [facility]#: [id number]
[2016-08-25 06:18] LABS: ALBUMIN 2.1 g/dl (3.3-4.9)
[2016-08-25 06:19] LABS: POTASSIUM 4.9 mmol/L (3.5-5.1)
[2016-08-25 06:20] LABS: ALBUMIN 2.2 g/dl (3.3-4.9)
[2016-08-25 06:21] LABS: BILIRUBIN,DIRECT 2.1 mg/dl (0.00-0.20); BILIRUBIN,INDIRECT 0.8 mg/dl (0-1.1); BILIRUBIN,TOTAL 2.9 mg/dl (0.2-1.3); CREATININE 0.58 mg/dl (0.61-1.24)
[2016-08-25 06:22] LABS: ALBUMIN/GLOBULIN RATIO 0.53; CALCIUM 8.4 mg/dl (8.4-10.2)
[2016-08-25 06:23] LABS: BILIRUBIN,DIRECT 2.1 mg/dl (0.00-0.20); BILIRUBIN,INDIRECT 0.8 mg/dl (0-1.1); BILIRUBIN,TOTAL 2.9 mg/dl (0.2-1.3); TOTAL PROTEIN 5.9 g/dl (6.1-8.1)
[2016-08-25 06:53] LABS: AMYLASE 125 U/L (11-123)
--- NOTE | 2016-08-25 07:40 | RADRPT ---
PROCEDURE: X-ray fluoroscopy guidance CLINICAL INDICATION: Abdominal pain, ERCP, fluoroscopic guidance TECHNIQUE: Fluoroscopic guidance was utilized for an intraoperative procedure. COMPARISON: None available FINDINGS: Fluoroscopic guidance was utilized for and intraoperative procedure. 45 seconds of fluoroscopy time was utilized for the procedure. 3 x-ray images were obtained during the procedure in progress. No gr oss filling defects are identified in the common bile duct. IMPRESSION: X-ray fluoroscopic guidance utilized for intraoperative procedure. No gross filling defects in the common bile duct. Please see procedure note for details. RPTAT: AA .Reza Turner MD, Date Time Electronically viewed and signed by .Reza Turner MD, MD on 08/25/2016 07:39 .P/
[2016-08-25 08:10] VITALS: BP 92/50; RESP 14
[2016-08-25] MEDS: FAMOTIDINE 20 MG TAB PO SCH ×2 (09:00→20:32)
[2016-08-25 10:23] LABS: INR 1.38; PT RATIO 1.3
[2016-08-25 10:24] LABS: PARTIAL THROMBOPLASTIN TIME 36.4 Sec (25.0-35.0)
[2016-08-25] MEDS: PHYTONADIONE (1 MG/ML PO SYG) PO SCH (14:42)
--- NOTE | 2016-08-25 15:25 | CONS ---
Date/Time of Note Date/Time of Note DATE: 08/25/16 TIME: 15:22 Assessment/Plan Assessment/Plan Chief Complaint/Hosp Course The patient is a 21 year old male with hyperbilirubinemia, trending down since admission, of unclear etiology with negative hepatitis panel, undergoing work- up for autoimmune hepatitis, with significantly elevated CA 19-9 at 869 (0-37) and CEA mildly elevated at 7.2 (0-5). AFP normal at 2.77 (0-7.21). Repeat CA 19-9 decreased to 571 on 08/25/16. - MRCP 08/20/16 demonstrated hepatomegaly at 20 cm with no focal hepatic mass is identified, hepatic periportal edema is noted, which can be seen in the setting of hepatitis. Gallbladder is contracted, and demonstrates circumferential wall edema, likely reactive secondary to underlying liver disease. Splenomegaly is noted measuring 14 cm. Biliary tree, pancreas, adrenal glands and kidneys are unremarkable. There is no retroperitoneal or terrence hepatis lymphadenopathy. Mild upper abdominal ascites is noted. - Appreciate GI recs. s/p ERCP 08/14/16 that showed no filling defects in CBD, ? gastroparesis for which Reglan was added. - Will consider outpatient EUS to rule out pancreaticobiliary lesion. CA 19-9 is significantly elevated and may be due to underlying inflammatory/autoimmune process, however would need to rule out underlying pancreaticobiliary malignancy such as pancreatic or intrahepatic cholangiocarcinoma. Patient can follow-up with us as an outpatient for EUS/GI referral. - Pending liver biopsy, cancelled for now due to elevated coags, receiving Vitamin K and FFP. # Normocytic anemia, stable, iron panel consistent with anemia of chronic inflammation, B12/folate/TSH WNL, retic count inappropriately low, LDH elevated. Pending MMA, homocysteine. Haptoglobin was < 15, which may be secondary to liver disease, however will check peripheral smear to rule out schistocytes or spherocytes and check mukul' test. # Polyarthritis, MAGI negative, anti-mitochondrial Ab neg, smooth muscle Ab negative, ds DNA elevated at 384. Rheumatology follow-up. Problems: Consultation Date/Type/Reason Admit Date/Time August 19, 2016 at 21:48 Initial Consult Date 08/22/16 Type of Consultation: Oncology 24 HR Interval Summary Free Text/Dictation Patient doing well, no pain. 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 II-XII intact Results Result Diagram: 08/25/165 08/25/16 0445 Results 24 hrs Laboratory Tests Test 08/25/16 04:25 08/25/16 04:45 08/25/16 09:33 Total Bilirubin 2.9 H 2.9 H Direct Bilirubin 2.10 H 2.10 H Indirect Bilirubin 0.8 0.8 Aspartate Amino Transf (AST/SGOT) 659 H 667 H Alanine Aminotransferase (ALT/SGPT) 502 H 501 H Alkaline Phosphatase 224 H 228 H Total Protein 5.9 L 6.0 L Albumin 2.2 L 2.1 L Amylase Level 125 H Lipase 104 White Blood Count 5.0 Red Blood Count 3.90 L Hemoglobin 11.4 L Hematocrit 32.8 L Mean Corpuscular Volume 84.1 Mean Corpuscular Hemoglobin 29.2 Mean Corpuscular Hemoglobin Concent 34.8 Red Cell Distribution Width 15.7 H Platelet Count 181 Mean Platelet Volume 12.1 H Neutrophils % 71.9 Lymphocytes % 19.4 Monocytes % 7.9 Eosinophils % 0.2 Basophils % 0.2 Nucleated Red Blood Cells % 0.0 Neutrophils # 3.6 Lymphocytes # 1.0 Monocytes # 0.4 Eosinophils # 0.0 Basophils # 0.0 Nucleated Red Blood Cells # 0.0 Sodium Level 135 Potassium Level 4.9 Chloride Level 101 Carbon Dioxide Level 26 Anion Gap 13 Blood Urea Nitrogen 11 Creatinine 0.58 L Glucose Level 125 Calcium Level 8.4 Globulin 3.90 H Albumin/Globulin Ratio 0.53 CA 19-9 Antigen 571.0 H Prothrombin Time 17.0 H Prothrombin Time Ratio 1.3 INR International Normalized Ratio 1.38 Activated Partial Thromboplast Time 36.4 H Medications Medications Current Medications Ondansetron HCl (Zofran Inj) 4 mg Q6H PRN IV NAUSEA AND/OR VOMITING Last administered on 08/24/16 17:09; Admin Dose 4 MG; Start 08/19/16 at 22:30 Morphine Sulfate (morphine) 2 mg Q4H PRN IV SEVERE PAIN LEVEL 7-10; Start 08/19 at 22:30 Famotidine (Pepcid) 20 mg Q12 PO Last administered on 08/24/16 21:46; Admin Dose 20 MG; Start 08/20/16 at 09:00 Phytonadione (Vitamin K Soln) 10 mg DAILY PO Last administered on 08/25/16 14: 42; Admin Dose 10 MG; Start 08/25/16 at 13:30; Stop 08/27/16 at 09:01 CARO DOMINGO MD August 25, 2016 15:25
--- NOTE | 2016-08-25 15:29 | PN ---
Date/Time of Note Date/Time of Note DATE: 08/25/16 TIME: 15:25 Assessment/Plan VTE Prophylaxis VTE Prophylaxis Intervention: SCD's Lines/Catheters [facility] Peripheral IV Urinary Cath still in place: No Assessment/Plan Assessment/Plan Jaundice/Transaminitis Hepatocellular consider autoimmune hepatitis ERCP 08/24/2016 Retained fluid in the stomach (suctioned out.) ? gastroparesis. Normal ampulla of Vater. . Normal cholangiogram. MRI abdomen Hepatomegaly is noted. Hepatic periportal edema is identified, which can be seen in the setting of hepatitis. Splenomegaly is noted measuring 14 cm. . There is mild upper abdominal ascites. . Circumferential gallbladder wall thickening is noted, likely reactive secondary to underlying liver disease. No evidence of cholelithiasis, cholecystitis or biliary dilatation is identified. There is mild anasarca. * Elevated Ca 19-9 * Hx of asthma PLAN * continue present management Subjective 24 Hr Interval Summary Free Text/Dictation * Course reviewed with RN * Patient seen and examined * ERCP 08/25/2016 Retained fluid in the stomach (suctioned out.) ? gastroparesis. . Normal ampulla of Vater. Normal cholangiogram. Exam/Review of Systems Vital Signs Vitals Vital Signs Date Time Temp Pulse Resp B/P Pulse Ox O2 Delivery O2 Flow Rate FiO2 08/25/16 08:10 97.4 55 14 92/50 98 08/25/16 00:30 Room Air 08/24/16 10:17 21 Intake and Output 08/24/16 08/24/16 08/25/16 15:00 23:00 07:00 Intake Total 480 ml Balance 480 ml Exam Constitutional: alert, oriented Head: normocephalic Neck: non-tender, supple Respiratory: clear to auscultation, normal air movement Cardiovascular: nl pulses, regular rate and rhythm Gastrointestinal: non-tender, soft Musculoskeletal: nl extremities to inspection, nl gait and stance Results Result Diagram: 08/25/16 0445 08/25/16 0445 Results 24 hrs Laboratory Tests Test 08/25/16 04:25 08/25/16 04:45 08/25/16 09:33 Total Bilirubin 2.9 H 2.9 H Direct Bilirubin 2.10 H 2.10 H Indirect Bilirubin 0.8 0.8 Aspartate Amino Transf (AST/SGOT) 659 H 667 H Alanine Aminotransferase (ALT/SGPT) 502 H 501 H Alkaline Phosphatase 224 H 228 H Total Protein 5.9 L 6.0 L Albumin 2.2 L 2.1 L Amylase Level 125 H Lipase 104 White Blood Count 5.0 Red Blood Count 3.90 L Hemoglobin 11.4 L Hematocrit 32.8 L Mean Corpuscular Volume 84.1 Mean Corpuscular Hemoglobin 29.2 Mean Corpuscular Hemoglobin Concent 34.8 Red Cell Distribution Width 15.7 H Platelet Count 181 Mean Platelet Volume 12.1 H Neutrophils % 71.9 Lymphocytes % 19.4 Monocytes % 7.9 Eosinophils % 0.2 Basophils % 0.2 Nucleated Red Blood Cells % 0.0 Neutrophils # 3.6 Lymphocytes # 1.0 Monocytes # 0.4 Eosinophils # 0.0 Basophils # 0.0 Nucleated Red Blood Cells # 0.0 Sodium Level 135 Potassium Level 4.9 Chloride Level 101 Carbon Dioxide Level 26 Anion Gap 13 Blood Urea Nitrogen 11 Creatinine 0.58 L Glucose Level 125 Calcium Level 8.4 Globulin 3.90 H Albumin/Globulin Ratio 0.53 CA 19-9 Antigen 571.0 H Prothrombin Time 17.0 H Prothrombin Time Ratio 1.3 INR International Normalized Ratio 1.38 Activated Partial Thromboplast Time 36.4 H Medications Medications Current Medications Ondansetron HCl (Zofran Inj) 4 mg Q6H PRN IV NAUSEA AND/OR VOMITING Last administered on 08/24/16 17:09; Admin Dose 4 MG; Start 08/19/16 at 22:30 Morphine Sulfate (morphine) 2 mg Q4H PRN IV SEVERE PAIN LEVEL 7-10; Start 08/19 at 22:30 Famotidine (Pepcid) 20 mg Q12 PO Last administered on 08/24/16 21:46; Admin Dose 20 MG; Start 08/20/16 at 09:00 Phytonadione (Vitamin K Soln) 10 mg DAILY PO Last administered on 08/25/16 14: 42; Admin Dose 10 MG; Start 08/25/16 at 13:30; Stop 08/27/16 at 09:01 JUNG PENA MD August 25, 2016 15:29
--- NOTE | 2016-08-25 17:15 | PN ---
Date/Time of Note Date/Time of Note DATE: 08/25/16 TIME: 17:13 Assessment/Plan VTE Prophylaxis VTE Prophylaxis Intervention: SCD's Lines/Catheters IV [facility] (from [facility] Peripheral IV Urinary Cath still in place: No Assessment/Plan Assessment/Plan 1. Hyperbilirubinemia with transaminitis, possibly autoimmune hepatitis. Hepatitis panel negative. The patient is being evaluated for an autoimmune hepatitis. 2. Positive tumor markers. The patient has positive CA 19-9 and CEA. Also, the patient's alpha fetoprotein is negative. We will involve oncology on the case. 3. Polyarthritis with decreased range of motion. Etiology unclear. 4. Asthma. Stable. Continue p.r.n. inhaled bronchodilators. 5. Normocytic anemia. Etiology unclear. We will monitor the H and H closely. We will order an iron panel. Deep venous thrombosis prophylaxis. Ambulation. Gastrointestinal prophylaxis. Histamine 2 receptor blockers. PLAN: Continue inpatient monitoring. Biopsy cancelled due to elevated PTT and INR, GI Following, will give vitamin K 10mg PO daily x 3 days, transfuse 2 units FFP order PT, PTT, INR in AM will follow up Subjective 24 Hr Interval Summary Free Text/Dictation pt biopsy cancelled due to mildly elevated PTT and INR, resumed on diet, LFTs still high, afebrile, BP stable Exam/Review of Systems Vital Signs Vitals Vital Signs Date Time Temp Pulse Resp B/P Pulse Ox O2 Delivery O2 Flow Rate FiO2 08/25/16 08:10 97.4 55 14 92/50 98 08/25/16 00:30 Room Air 08/24/16 10:17 21 Intake and Output 08/24/16 08/24/16 08/25/16 15:00 23:00 07:00 Intake Total 480 ml Balance 480 ml Exam General: The patient is well-developed, Not in acute distress. HEENT: Conjunctivae is icteric, normocephalic. The pupils are equal and round . Neck: Supple with full range of motion. Chest: Normal expansion of the thorax during inspiration Lungs: Clear to auscultation bilaterally Heart: Normal S1-S2, Regular rhythm and rate. Abdomen: Soft , nontender, nondistended , bowel sounds are present. Extremities: Normal to inspection, no edema no cyanosis Neurologic: Normal mental status,The patient is awake, alert and oriented . Results Result Diagram: 08/25/16 0445 08/25/16 0445 Results 24 hrs Laboratory Tests Test 08/25/16 04:25 08/25/16 04:45 08/25/16 09:33 Total Bilirubin 2.9 H 2.9 H Direct Bilirubin 2.10 H 2.10 H Indirect Bilirubin 0.8 0.8 Aspartate Amino Transf (AST/SGOT) 659 H 667 H Alanine Aminotransferase (ALT/SGPT) 502 H 501 H Alkaline Phosphatase 224 H 228 H Total Protein 5.9 L 6.0 L Albumin 2.2 L 2.1 L Amylase Level 125 H Lipase 104 White Blood Count 5.0 Red Blood Count 3.90 L Hemoglobin 11.4 L Hematocrit 32.8 L Mean Corpuscular Volume 84.1 Mean Corpuscular Hemoglobin 29.2 Mean Corpuscular Hemoglobin Concent 34.8 Red Cell Distribution Width 15.7 H Platelet Count 181 Mean Platelet Volume 12.1 H Neutrophils % 71.9 Lymphocytes % 19.4 Monocytes % 7.9 Eosinophils % 0.2 Basophils % 0.2 Nucleated Red Blood Cells % 0.0 Neutrophils # 3.6 Lymphocytes # 1.0 Monocytes # 0.4 Eosinophils # 0.0 Basophils # 0.0 Nucleated Red Blood Cells # 0.0 Sodium Level 135 Potassium Level 4.9 Chloride Level 101 Carbon Dioxide Level 26 Anion Gap 13 Blood Urea Nitrogen 11 Creatinine 0.58 L Glucose Level 125 Calcium Level 8.4 Globulin 3.90 H Albumin/Globulin Ratio 0.53 CA 19-9 Antigen 571.0 H Prothrombin Time 17.0 H Prothrombin Time Ratio 1.3 INR International Normalized Ratio 1.38 Activated Partial Thromboplast Time 36.4 H Medications Medications Current Medications Ondansetron HCl (Zofran Inj) 4 mg Q6H PRN IV NAUSEA AND/OR VOMITING Last administered on 08/24/16 17:09; Admin Dose 4 MG; Start 08/19/16 at 22:30 Morphine Sulfate (morphine) 2 mg Q4H PRN IV SEVERE PAIN LEVEL 7-10; Start 08/19 at 22:30 Famotidine (Pepcid) 20 mg Q12 PO Last administered on 08/24/16 21:46; Admin Dose 20 MG; Start 08/20/16 at 09:00 Phytonadione (Vitamin K Soln) 10 mg DAILY PO Last administered on 5/18/17at 14: 42; Admin Dose 10 MG; Start 08/25/16 at 13:30; Stop 08/27/16 at 09:01 SANTOS LYNCH MD August 25, 2016 17:15
[2016-08-25 19:00] VITALS: BP 105/56; RESP 18
[2016-08-25] MEDS ORDERED: DIPHENHYDRAMINE 50 MG INJ ONE (23:16)
[2016-08-25] MEDS ORDERED: DIPHENHYDRAMINE 50 MG INJ IV ONE (23:30)
[2016-08-25] MEDS: SOD CHLORIDE 0.9% 1,000 ML IV SCH (23:39)
[2016-08-26 02:00] VITALS: BP 83/45; PULSE 71
[2016-08-26] MEDS: ALBUTEROL 18 GM INHALER INH SCH ×4 (02:00→20:00)
[2016-08-26 03:08] VITALS: BP 86/44; PULSE 62
[2016-08-26 05:16] LABS: ADD SCAN DIFF NO
[2016-08-26 05:22] LABS: BASOPHILS % 0.4 % (0.0-2.0); EOSINOPHILS # 0.3 10^3/ul (0.0-0.5); HEMATOCRIT 29.1 % (42.0-52.0); LYMPHOCYTES # 1.7 10^3/ul (0.8-2.9); LYMPHOCYTES % 34.6 % (15.0-51.0); MEAN CORPUSCULAR HEMOGLOBIN 28.7 pg (29.0-33.0); MEAN CORPUSCULAR HGB CONC 34.4 g/dl (32.0-37.0); MEAN CORPUSCULAR VOLUME 83.6 fl (82.0-101.0); MEAN PLATELET VOLUME 12.3 fl (7.4-10.4); MONOCYTE # 0.6 10^3/ul (0.3-0.9); NEUTROPHIL # 2.2 10^3/ul (1.6-7.5); NEUTROPHILS % 45.6 % (39.0-77.0); PLATELET COUNT 183 10^3/UL (140-415); RED BLOOD COUNT 3.48 10^6/ul (4.70-6.10); RED CELL DISTRIBUTION WIDTH 15.9 % (11.5-14.5); WHITE BLOOD COUNT 4.9 10^3/ul (4.8-10.8)
[2016-08-26 05:38] LABS: INR 1.24; PROTIME 15.7 Sec (12.2-14.2); PT RATIO 1.2
[2016-08-26 05:39] LABS: PARTIAL THROMBOPLASTIN TIME 34.3 Sec (25.0-35.0)
[2016-08-26 05:49] LABS: ALBUMIN 2.1 g/dl (3.3-4.9)
[2016-08-26 05:50] LABS: POTASSIUM 3.8 mmol/L (3.5-5.1)
[2016-08-26 05:52] LABS: ALBUMIN/GLOBULIN RATIO 0.61; BILIRUBIN,DIRECT 1.8 mg/dl (0.00-0.20); BILIRUBIN,TOTAL 2.8 mg/dl (0.2-1.3); CREATININE 0.75 mg/dl (0.61-1.24); TOTAL PROTEIN 5.5 g/dl (6.1-8.1)
[2016-08-26 06:02] VITALS: BP 94/55; PULSE 63; RESP 18
[2016-08-26 08:14] VITALS: BP 91/55; RESP 18
[2016-08-26] MEDS: PHYTONADIONE (1 MG/ML PO SYG) PO SCH (08:32)
[2016-08-26] MEDS: FAMOTIDINE 20 MG TAB PO SCH ×3 (09:00→21:00)
--- NOTE | 2016-08-26 09:38 | CONS ---
Date/Time of Note Date/Time of Note DATE: 08/26/16 TIME: 09:37 Assessment/Plan Assessment/Plan Chief Complaint/Hosp Course The patient is a 21 year old male with hyperbilirubinemia, trending down since admission, of unclear etiology with negative hepatitis panel, undergoing work- up for autoimmune hepatitis, with significantly elevated CA 19-9 at 869 (0-37) and CEA mildly elevated at 7.2 (0-5). AFP normal at 2.77 (0-7.21). Repeat CA 19-9 decreased to 571 on 08/25/16. - MRCP 08/20/16 demonstrated hepatomegaly at 20 cm with no focal hepatic mass is identified, hepatic periportal edema is noted, which can be seen in the setting of hepatitis. Gallbladder is contracted, and demonstrates circumferential wall edema, likely reactive secondary to underlying liver disease. Splenomegaly is noted measuring 14 cm. Biliary tree, pancreas, adrenal glands and kidneys are unremarkable. There is no retroperitoneal or terrence hepatis lymphadenopathy. Mild upper abdominal ascites is noted. - Appreciate GI recs. s/p ERCP 08/14/16 that showed no filling defects in CBD, ? gastroparesis for which Reglan was added. - Will consider outpatient EUS to rule out pancreaticobiliary lesion. CA 19-9 is significantly elevated and may be due to underlying inflammatory/autoimmune process, however would need to rule out underlying pancreaticobiliary malignancy such as pancreatic or intrahepatic cholangiocarcinoma. Patient can follow-up with us as an outpatient for EUS/GI referral. - Pending liver biopsy today, cancelled yesterday due to elevated coags, receiving Vitamin K and FFP with coags improved # Normocytic anemia, stable, iron panel consistent with anemia of chronic inflammation, B12/folate/TSH WNL, retic count inappropriately low, LDH elevated. Pending MMA, homocysteine. Haptoglobin was < 15, which may be secondary to liver disease, however will check peripheral smear to rule out schistocytes or spherocytes. Meaghan' test negative. # Polyarthritis, MAGI negative, anti-mitochondrial Ab neg, smooth muscle Ab negative, ds DNA elevated at 384. Rheumatology follow-up. Problems: Consultation Date/Type/Reason Admit Date/Time August 19, 2016 at 21:48 Initial Consult Date 08/22/16 Type of Consultation: Oncology 24 HR Interval Summary Free Text/Dictation Patient taken for liver biopsy this morning. Exam/Review of Systems Vital Signs Vitals Vital Signs Date Time Temp Pulse Resp B/P Pulse Ox O2 Delivery O2 Flow Rate FiO2 08/26/16 08:14 97.8 63 18 91/55 96 08/26/16 06:02 Room Air 08/24/16 10:17 21 Intake and Output 08/25/16 08/25/16 08/26/16 15:00 23:00 07:00 Intake Total 700 ml 750 ml Output Total 800 ml Balance 700 ml -50 ml Exam Constitutional: alert, oriented Psych: no complaints Eyes: icteric Neck: supple Respiratory: clear to auscultation Cardiovascular: regular rate and rhythm Gastrointestinal: non-tender, soft Musculoskeletal: nl extremities to inspection Neurological: BALLISTIC EXPERT II-XII intact Results Result Diagram: 08/26/16 0418 08/26/16 0418 Results 24 hrs Laboratory Tests Test 08/26/16 04:18 White Blood Count 4.9 Red Blood Count 3.48 L Hemoglobin 10.0 L Hematocrit 29.1 L Mean Corpuscular Volume 83.6 Mean Corpuscular Hemoglobin 28.7 L Mean Corpuscular Hemoglobin Concent 34.4 Red Cell Distribution Width 15.9 H Platelet Count 183 Mean Platelet Volume 12.3 H Neutrophils % 45.6 Lymphocytes % 34.6 Monocytes % 13.0 H Eosinophils % 6.0 Basophils % 0.4 Nucleated Red Blood Cells % 0.0 Neutrophils # 2.2 Lymphocytes # 1.7 Monocytes # 0.6 Eosinophils # 0.3 Basophils # 0.0 Nucleated Red Blood Cells # 0.0 Prothrombin Time 15.7 H Prothrombin Time Ratio 1.2 INR International Normalized Ratio 1.24 Activated Partial Thromboplast Time 34.3 Sodium Level 138 Potassium Level 3.8 Chloride Level 101 Carbon Dioxide Level 30 Anion Gap 11 Blood Urea Nitrogen 14 Creatinine 0.75 Glucose Level 82 # Calcium Level 8.0 L Total Bilirubin 2.8 H Direct Bilirubin 1.80 H Indirect Bilirubin 1.0 Aspartate Amino Transf (AST/SGOT) 592 H Alanine Aminotransferase (ALT/SGPT) 430 H Alkaline Phosphatase 201 H Total Protein 5.5 L Albumin 2.1 L Globulin 3.40 H Albumin/Globulin Ratio 0.61 Medications Medications Current Medications Ondansetron HCl (Zofran Inj) 4 mg Q6H PRN IV NAUSEA AND/OR VOMITING Last administered on 08/24/16t 17:09; Admin Dose 4 MG; Start 08/19/16 at 22:30 Morphine Sulfate (morphine) 2 mg Q4H PRN IV SEVERE PAIN LEVEL 7-10; Start 08/19 at 22:30 Famotidine (Pepcid) 20 mg Q12 PO Last administered on 08/25/16 20:32; Admin Dose 20 MG; Start 08/20/16 at 09:00 Phytonadione 10 mg 10 mg DAILY PO Last administered on 08/26/16 08:32; Admin Dose 10 MG; Start 08/25/16 at 13:30; Stop 08/27/16 at 09:01 Sodium Chloride (NS) 1,000 ml @ 70 mls/hr [id number] IV Last administered on 08/25 23:39; Admin Dose 70 MLS/HR; Start 08/26/16 at 00:00 CARO DOMINGO MD August 26, 2016 09:38
--- NOTE | 2016-08-26 10:02 | CONS ---
Date/Time of Note Date/Time of Note DATE: 08/26/16 TIME: 09:53 Assessment/Plan Assessment/Plan Chief Complaint/Hosp Course Mr.Eyasu Arroyo is a 21-year-old male with a history of asthma who presented to the emergency room for further evaluation of nausea, vomiting, and abdominal pain. Patient denies hematemesis, fever, chills, diarrhea, hematochezia, sick contacts, and recent travel outside of the [place]. Patient reports intermittent vomiting with chronic nausea and abdominal pain for the last 2 weeks. He also reports losing 4-6 pounds over this period. He reports previous history of abdominal pain for the last year with 50 pound weight loss. About a year ago he used to weigh 185 pounds and he intentionally wanted to lose about 20 pounds, but he continued to lose weight because of the vomiting and the decreased p.o. intake. Patient also has a history of joint pains and swelling for the last year as well. Patient states last travel to [facility] was a year ago. Patient said he was in the process of getting additional workup for autoimmune causes of joint pains. Patient denies diagnosis of lupus. Problems: Additional Assessment/Plan Transaminitis/jaundice Nausea and pain control MRCP: Hepatomegaly is noted. Hepatic periportal edema is identified, which can be seen in the setting of hepatitis. Splenomegaly is noted measuring 14 cm. There is mild upper abdominal ascites. Circumferential gallbladder wall thickening is noted, likely reactive secondary to underlying liver disease. No evidence of cholelithiasis, cholecystitis or biliary dilatation is identified. ERCP: Retained fluid in the stomach (suctioned out.) ? gastroparesis. Normal ampulla of Vater. Normal cholangiogram. Monitor LFTs, amylase, lipase Liver biopsy in process Smooth muscle, Mitochondrial AB, and MAGI - Negative Elevated CA 19-9 Heme/Onc following Case management consult for OP EUS Asthma Management per Primary Joint pain Management per Primary May require rheumatology consult Double strand DNA antibody elevated Further recommendations depend on clinical course Patient seen in collaboration with Dr. Ortiz Consultation Date/Type/Reason Admit Date/Time August 19, 2016 at 21:48 Type of Consultation: GI 24 HR Interval Summary Free Text/Dictation Pt getting liver biopsy Request to case management for EUS Exam/Review of Systems Vital Signs Vitals Vital Signs Date Time Temp Pulse Resp B/P Pulse Ox O2 Delivery O2 Flow Rate FiO2 08/26/16 08:14 97.8 63 18 91/55 96 08/26/16 06:02 Room Air 08/24/16 10:17 21 Intake and Output 08/25/16 08/25/16 08/26/16 15:00 23:00 07:00 Intake Total 700 ml 750 ml Output Total 800 ml Balance 700 ml -50 ml Exam Constitutional: alert, oriented Head: normocephalic Neck: non-tender, supple Respiratory: clear to auscultation, normal air movement Cardiovascular: nl pulses, regular rate and rhythm Gastrointestinal: non-tender, soft Musculoskeletal: nl extremities to inspection, nl gait and stance Results Result Diagram: 08/26/16 0418 08/26/16 0418 Results 24 hrs Laboratory Tests Test 08/26/16 04:18 White Blood Count 4.9 Red Blood Count 3.48 L Hemoglobin 10.0 L Hematocrit 29.1 L Mean Corpuscular Volume 83.6 Mean Corpuscular Hemoglobin 28.7 L Mean Corpuscular Hemoglobin Concent 34.4 Red Cell Distribution Width 15.9 H Platelet Count 183 Mean Platelet Volume 12.3 H Neutrophils % 45.6 Lymphocytes % 34.6 Monocytes % 13.0 H Eosinophils % 6.0 Basophils % 0.4 Nucleated Red Blood Cells % 0.0 Neutrophils # 2.2 Lymphocytes # 1.7 Monocytes # 0.6 Eosinophils # 0.3 Basophils # 0.0 Nucleated Red Blood Cells # 0.0 Prothrombin Time 15.7 H Prothrombin Time Ratio 1.2 INR International Normalized Ratio 1.24 Activated Partial Thromboplast Time 34.3 Sodium Level 138 Potassium Level 3.8 Chloride Level 101 Carbon Dioxide Level 30 Anion Gap 11 Blood Urea Nitrogen 14 Creatinine 0.75 Glucose Level 82 # Calcium Level 8.0 L Total Bilirubin 2.8 H Direct Bilirubin 1.80 H Indirect Bilirubin 1.0 Aspartate Amino Transf (AST/SGOT) 592 H Alanine Aminotransferase (ALT/SGPT) 430 H Alkaline Phosphatase 201 H Total Protein 5.5 L Albumin 2.1 L Globulin 3.40 H Albumin/Globulin Ratio 0.61 Medications Medications Current Medications Ondansetron HCl (Zofran Inj) 4 mg Q6H PRN IV NAUSEA AND/OR VOMITING Last administered on 08/24/16t 17:09; Admin Dose 4 MG; Start 08/19/16 at 22:30 Morphine Sulfate (morphine) 2 mg Q4H PRN IV SEVERE PAIN LEVEL 7-10; Start 08/19 at 22:30 Famotidine (Pepcid) 20 mg Q12 PO Last administered on 08/25/16 20:32; Admin Dose 20 MG; Start 08/20/16 at 09:00 Phytonadione 10 mg 10 mg DAILY PO Last administered on 08/26/16 08:32; Admin Dose 10 MG; Start 08/25/16 at 13:30; Stop 08/27/16 at 09:01 Sodium Chloride (NS) 1,000 ml @ 70 mls/hr [id number] IV Last administered on 08/25 23:39; Admin Dose 70 MLS/HR; Start 08/26/16 at 00:00 SHANNAN KENNEDY August 26, 2016 10:02
[2016-08-26] MEDS ORDERED: LIDOCAINE 1% (MPF) 5 ML VIAL ONE (10:07)
[2016-08-26 10:20] VITALS: BP 91/54; PULSE 61; RESP 18
--- NOTE | 2016-08-26 14:16 | RADRPT ---
PROCEDURE: Ultrasound guided liver biopsy. CLINICAL INDICATION: Hepatitis. TECHNIQUE: Informed consent was obtained. The procedure, risks, benefits, complications and alternatives were explained to the patient. Risks including bleeding and infection were explained. The patient unders tood and was willing to proceed. A procedural pause was performed. The patient's name, date of , and procedure to be performed w ere verified. Using local anesthetic, sterile technique and ultrasound guidance, an 18-gauge automated core biopsy needle was used to biopsy the right hepatic lobe. A single pass was made. Adequate tissue was obta ined. A dressing was applied. The patient tolerated procedure well. COMPARISON: None. FINDINGS: Ultrasound imaging demonstrates the liver to be 1.2 cm deep to the skin. IMPRESSION: 1. Successful ultrasound guided liver biopsy. RPTAT: QQ .Sean Moon MD, Date Time Electronically viewed and signed by .Sean Moon MD, on 08/26/2016 14:15 .R/
[2016-08-26] MEDS: SOD CHLORIDE 0.9% 1,000 ML IV SCH ×2 (14:18→19:00)
[2016-08-26] MEDS: ONDANSETRON 4 MG INJ IV PRN (15:48)
[2016-08-26 19:00] VITALS: BP 98/52; RESP 18
--- NOTE | 2016-08-26 22:47 | PN ---
Date/Time of Note Date/Time of Note DATE: 08/26/16 TIME: 22:45 Assessment/Plan VTE Prophylaxis VTE Prophylaxis Intervention: SCD's Lines/Catheters [facility] [place] [facility] Urinary Cath still in place: No Assessment/Plan Assessment/Plan 1. Hyperbilirubinemia with transaminitis, possibly autoimmune hepatitis. Hepatitis panel negative. S/p US guided biopsy 08/26/16 2. Positive tumor markers. The patient has positive CA 19-9 and CEA. Also, the patient's alpha fetoprotein is negative. We will involve oncology on the case. 3. Polyarthritis with decreased range of motion. Etiology unclear. 4. Asthma. Stable. Continue p.r.n. inhaled bronchodilators. 5. Normocytic anemia. Etiology unclear. We will monitor the H and H closely. We will order an iron panel. Deep venous thrombosis prophylaxis. Ambulation. Gastrointestinal prophylaxis. Histamine 2 receptor blockers. PLAN: Continue inpatient monitoring. S/p BIopsy todya, report pending, LFTs slightly better but it is still very high H & O and GI has been following will follow up Subjective 24 Hr Interval Summary Free Text/Dictation S/p US guided biopsy no bleeding, pain controlled, LFTs slightly better Exam/Review of Systems Vital Signs Vitals Vital Signs Date Time Temp Pulse Resp B/P Pulse Ox O2 Delivery O2 Flow Rate FiO2 08/26/16 19:00 97.9 86 18 98/52 97 08/26/16 10:20 Room Air 08/24/16 10:17 21 Intake and Output 08/25/16 08/25/16 08/26/16 15:00 23:00 07:00 Intake Total 700 ml 750 ml Output Total 800 ml Balance 700 ml -50 ml Exam General: The patient is well-developed, Not in acute distress. HEENT: Conjunctivae is icteric, normocephalic. The pupils are equal and round . Neck: Supple with full range of motion. Chest: Normal expansion of the thorax during inspiration Lungs: Clear to auscultation bilaterally Heart: Normal S1-S2, Regular rhythm and rate. Abdomen: Soft , nontender, nondistended , bowel sounds are present. Extremities: Normal to inspection, no edema no cyanosis Neurologic: Normal mental status,The patient is awake, alert and oriented . Results Result Diagram: 08/26/16 0418 08/26/16 041 Results 24 hrs Laboratory Tests Test 08/26/16 04:18 White Blood Count 4.9 Red Blood Count 3.48 L Hemoglobin 10.0 L Hematocrit 29.1 L Mean Corpuscular Volume 83.6 Mean Corpuscular Hemoglobin 28.7 L Mean Corpuscular Hemoglobin Concent 34.4 Red Cell Distribution Width 15.9 H Platelet Count 183 Mean Platelet Volume 12.3 H Neutrophils % 45.6 Lymphocytes % 34.6 Monocytes % 13.0 H Eosinophils % 6.0 Basophils % 0.4 Nucleated Red Blood Cells % 0.0 Neutrophils # 2.2 Lymphocytes # 1.7 Monocytes # 0.6 Eosinophils # 0.3 Basophils # 0.0 Nucleated Red Blood Cells # 0.0 Prothrombin Time 15.7 H Prothrombin Time Ratio 1.2 INR International Normalized Ratio 1.24 Activated Partial Thromboplast Time 34.3 Sodium Level 138 Potassium Level 3.8 Chloride Level 101 Carbon Dioxide Level 30 Anion Gap 11 Blood Urea Nitrogen 14 Creatinine 0.75 Glucose Level 82 # Calcium Level 8.0 L Total Bilirubin 2.8 H Direct Bilirubin 1.80 H Indirect Bilirubin 1.0 Aspartate Amino Transf (AST/SGOT) 592 H Alanine Aminotransferase (ALT/SGPT) 430 H Alkaline Phosphatase 201 H Total Protein 5.5 L Albumin 2.1 L Globulin 3.40 H Albumin/Globulin Ratio 0.61 Medications Medications Current Medications Ondansetron HCl (Zofran Inj) 4 mg Q6H PRN IV NAUSEA AND/OR VOMITING Last administered on 08/26/16 15:48; Admin Dose 4 MG; Start 08/19/16 at 22:30 Morphine Sulfate (morphine) 2 mg Q4H PRN IV SEVERE PAIN LEVEL 7-10 Last administered on 08/26/16 15:46; Admin Dose 2 MG; Start 08/19/16 at 22:30 Famotidine (Pepcid) 20 mg Q12 PO Last administered on 08/26/16 20:07; Admin Dose 20 MG; Start 08/20/16 at 09:00 Phytonadione 10 mg 10 mg DAILY PO Last administered on 08/26/16 08:32; Admin Dose 10 MG; Start 08/25/16 at 13:30; Stop 08/27/16 at 09:01 Sodium Chloride (NS) 1,000 ml @ 70 mls/hr [id number] IV Last administered on 08/25t 23:39; Admin Dose 70 MLS/HR; Start 08/26/16 at 00:00 SANTOS LYNCH MD August 26, 2016 22:47
[2016-08-27 00:35] VITALS: BP 86/43; PULSE 63; RESP 17
[2016-08-27] MEDS: ALBUTEROL 18 GM INHALER INH SCH ×4 (02:00→20:00)
[2016-08-27] MEDS: SOD CHLORIDE 0.9% 1,000 ML IV SCH ×3 (03:59→20:31)
[2016-08-27 04:00] VITALS: BP 90/52; PULSE 66; RESP 17
[2016-08-27] MEDS ORDERED: GABA300C16 PO (07:54)
[2016-08-27 08:43] VITALS: BP 89/49; RESP 18
[2016-08-27 08:49] VITALS: BP 91/50; PULSE 80
[2016-08-27] MEDS: FAMOTIDINE 20 MG TAB PO SCH ×2 (08:53→21:50)
[2016-08-27] MEDS: PHYTONADIONE (1 MG/ML PO SYG) PO SCH (10:06)
--- NOTE | 2016-08-27 14:10 | PN ---
Date/Time of Note Date/Time of Note DATE: 08/27/16 TIME: 14:08 Assessment/Plan VTE Prophylaxis VTE Prophylaxis Intervention: SCD's Lines/Catheters IV Catheter Type (from [facility]): Peripheral IV Urinary Cath still in place: No Assessment/Plan Assessment/Plan 1. Hyperbilirubinemia with transaminitis, possibly autoimmune hepatitis. Hepatitis panel negative. S/p US guided biopsy 08/26/16 2. Positive tumor markers. The patient has positive CA 19-9 and CEA. Also, the patient's alpha fetoprotein is negative. We will involve oncology on the case. 3. Polyarthritis with decreased range of motion. Etiology unclear. 4. Asthma. Stable. Continue p.r.n. inhaled bronchodilators. 5. Normocytic anemia. Etiology unclear. We will monitor the H and H closely. We will order an iron panel. Deep venous thrombosis prophylaxis. Ambulation. Gastrointestinal prophylaxis. Histamine 2 receptor blockers. PLAN: Continue inpatient monitoring. S/p BIopsy todya, report pending, LFTs slightly better but it is still very high H & O and GI has been following will follow up Subjective 24 Hr Interval Summary Free Text/Dictation s/p Liver biopsy , no LFT checked today, pt is stable Exam/Review of Systems Vital Signs Vitals Vital Signs Date Time Temp Pulse Resp B/P Pulse Ox O2 Delivery O2 Flow Rate FiO2 08/27/16 08:49 80 91/50 08/27/16 08:43 98.3 18 97 08/27/16 04:00 Room Air 08/24/16 10:17 21 Intake and Output 08/26/16 08/26/16 08/27/16 15:00 23:00 07:00 Intake Total 1490 ml 1250 ml Balance 1490 ml 1250 ml Exam General: The patient is well-developed, Not in acute distress. HEENT: Conjunctivae is icteric, normocephalic. The pupils are equal and round . Neck: Supple with full range of motion. Chest: Normal expansion of the thorax during inspiration Lungs: Clear to auscultation bilaterally Heart: Normal S1-S2, Regular rhythm and rate. Abdomen: Soft , nontender, nondistended , bowel sounds are present. Extremities: Normal to inspection, no edema no cyanosis Neurologic: Normal mental status,The patient is awake, alert and oriented . Results Result Diagram: 08/26/16 0418 08/26/16 0418 Medications Medications Current Medications Ondansetron HCl (Zofran Inj) 4 mg Q6H PRN IV NAUSEA AND/OR VOMITING Last administered on 08/26/16 15:48; Admin Dose 4 MG; Start 08/19/16 at 22:30 Morphine Sulfate (morphine) 2 mg Q4H PRN IV SEVERE PAIN LEVEL 7-10 Last administered on 08/26/16 15:46; Admin Dose 2 MG; Start 08/19/16 at 22:30 Famotidine 20 mg 20 mg Q12 PO Last administered on 08/27/16 08:53; Admin Dose 20 MG; Start 08/20/16 at 09:00 Sodium Chloride (NS) 1,000 ml @ 70 mls/hr [id number] IV Last administered on 08/27 03:59; Admin Dose 70 MLS/HR; Start 08/26/16 at 00:00 SANTOS LYNCH MD August 27, 2016 14:10
--- NOTE | 2016-08-27 14:14 | PN ---
Date/Time of Note Date/Time of Note DATE: 08/27/16 TIME: 14:07 Assessment/Plan VTE Prophylaxis VTE Prophylaxis Intervention: ambulation Lines/Catheters IV [facility] Peripheral IV Urinary Cath still in place: No Assessment/Plan Assessment/Plan Jaundice/Transaminitis Hepatocellular consider autoimmune hepatitis ERCP 08/24/2016 Retained fluid in the stomach (suctioned out.) ? gastroparesis. Normal ampulla of Vater. . Normal cholangiogram. MRI abdomen Hepatomegaly is noted. Hepatic periportal edema is identified, which can be seen in the setting of hepatitis. Splenomegaly is noted measuring 14 cm. . There is mild upper abdominal ascites. . Circumferential gallbladder wall thickening is noted, likely reactive secondary to underlying liver disease. No evidence of cholelithiasis, cholecystitis or biliary dilatation is identified. There is mild anasarca. * Elevated Ca 19-9 * Hx of asthma Plan * awaiting biopsy result * continue present medications Subjective 24 Hr Interval Summary Free Text/Dictation * Course reviewed with RN * Patient seen and examined * still awaiting biopsy results Exam/Review of Systems Vital Signs Vitals Vital Signs Date Time Temp Pulse Resp B/P Pulse Ox O2 Delivery O2 Flow Rate FiO2 08/27/16 08:49 80 91/50 08/27/16 08:43 98.3 18 97 08/27/16 04:00 Room Air 08/24/16 10:17 21 Intake and Output 08/26/16 08/26/16 08/27/16 15:00 23:00 07:00 Intake Total 1490 ml 1250 ml Balance 1490 ml 1250 ml Exam Constitutional: alert, oriented Head: normocephalic Neck: supple Respiratory: clear to auscultation, normal air movement Cardiovascular: nl pulses, regular rate and rhythm Gastrointestinal: non-tender, soft Musculoskeletal: nl extremities to inspection, nl gait and stance Results Result Diagram: 08/26/16 0418 08/26/16 0418 Medications Medications Current Medications Ondansetron HCl (Zofran Inj) 4 mg Q6H PRN IV NAUSEA AND/OR VOMITING Last administered on 08/26/16 15:48; Admin Dose 4 MG; Start 08/19/16 at 22:30 Morphine Sulfate (morphine) 2 mg Q4H PRN IV SEVERE PAIN LEVEL 7-10 Last administered on 5/19/17at 15:46; Admin Dose 2 MG; Start 08/19/16 at 22:30 Famotidine 20 mg 20 mg Q12 PO Last administered on 08/27/16 08:53; Admin Dose 20 MG; Start 08/20/16 at 09:00 Sodium Chloride (NS) 1,000 ml @ 70 mls/hr [id number] IV Last administered on 08/27 03:59; Admin Dose 70 MLS/HR; Start 08/26/16 at 00:00 JUNG PENA MD August 27, 2016 14:14
[2016-08-27 19:40] VITALS: BP 92/51; RESP 18
[2016-08-28] MEDS: ALBUTEROL 18 GM INHALER INH SCH ×2 (02:00→08:00)
[2016-08-28 07:33] VITALS: BP 87/50; RESP 19
[2016-08-28 09:33] LABS: ALBUMIN 2.2 g/dl (3.3-4.9); POTASSIUM 3.8 mmol/L (3.5-5.1)
[2016-08-28 09:35] LABS: BILIRUBIN,DIRECT 1.2 mg/dl (0.00-0.20); BILIRUBIN,INDIRECT 0.9 mg/dl (0-1.1); BILIRUBIN,TOTAL 2.1 mg/dl (0.2-1.3); CREATININE 0.6 mg/dl (0.61-1.24)
[2016-08-28 09:36] LABS: ALBUMIN/GLOBULIN RATIO 0.57; CALCIUM 8.1 mg/dl (8.4-10.2)
[2016-08-28] MEDS: FAMOTIDINE 20 MG TAB PO SCH ×2 (10:41→20:20)
--- NOTE | 2016-08-28 11:21 | CONS ---
Date/Time of Note Date/Time of Note DATE: 08/28/16 TIME: 11:19 Assessment/Plan Assessment/Plan Additional Assessment/Plan Assessment and plan; next 1. Patient admitted with acute hepatitis status post liver biopsy. Awaiting results. 2. Stable clinical status. Next Continue current treatment. Further workup to be determined once pathology results are obtained. Consultation Date/Type/Reason Admit Date/Time August 19, 2016 at 21:48 Initial Consult Date 08/22/16 Type of Consultation: Internal medicine 24 HR Interval Summary Free Text/Dictation Patient condition stable. He has been ambulating in the hospital. Denies any abdominal pain nausea vomiting. Zaira; young male, awake alert currently in no distress. Exam/Review of Systems Vital Signs Vitals Vital Signs Date Time Temp Pulse Resp B/P Pulse Ox O2 Delivery O2 Flow Rate FiO2 08/28/16 07:33 98.0 64 19 87/50 98 08/27/16 04:00 Room Air 08/24/16 10:17 21 Intake and Output 08/27/16 08/27/16 08/28/16 15:00 23:00 07:00 Intake Total 2140 ml 550 ml Output Total 1100 ml 300 ml Balance 1040 ml 250 ml Exam HEENT exam; supple neck, no JVD. No lymphadenopathy midline trachea. No thyromegaly. Patient is nonicteric. Chest examination; clear to ulceration. S1-S2 audible, no murmurs. Regular rhythm. Abdomen exam is; soft, nondistended. No organomegaly. Bowel is audible. Extremity examination; no peripheral edema. MACHINE ETCHER examination; no focal deficit. Results Result Diagram: 08/26/16 0418 08/28/16 0839 Results 24 hrs Laboratory Tests Test 08/28/16 08:39 Sodium Level 137 Potassium Level 3.8 Chloride Level 103 Carbon Dioxide Level 27 Anion Gap 11 Blood Urea Nitrogen 7 Creatinine 0.60 L Glucose Level 86 Calcium Level 8.1 L Total Bilirubin 2.1 H Direct Bilirubin 1.20 H Indirect Bilirubin 0.9 Aspartate Amino Transf (AST/SGOT) 589 H Alanine Aminotransferase (ALT/SGPT) 440 H Alkaline Phosphatase 225 H Total Protein 6.0 L Albumin 2.2 L Globulin 3.80 H Albumin/Globulin Ratio 0.57 Medications Medications Current Medications Ondansetron HCl (Zofran Inj) 4 mg Q6H PRN IV NAUSEA AND/OR VOMITING Last administered on 08/26/16 15:48; Admin Dose 4 MG; Start 08/19/16 at 22:30 Morphine Sulfate (morphine) 2 mg Q4H PRN IV SEVERE PAIN LEVEL 7-10 Last administered on 08/26/16 15:46; Admin Dose 2 MG; Start 08/19/16 at 22:30 Famotidine 20 mg 20 mg Q12 PO Last administered on 08/28/16 10:41; Admin Dose 20 MG; Start 08/20/16 at 09:00 Sodium Chloride (NS) 1,000 ml @ 70 mls/hr [id number] IV Last administered on 08/27 20:31; Admin Dose 70 MLS/HR; Start 08/26/16 at 00:00 MANDY VORA August 28, 2016 11:21
[2016-08-28] MEDS ORDERED: ALBUTEROL 18 GM INHALER INH PRN (12:00)
--- NOTE | 2016-08-28 12:01 | PN ---
Date/Time of Note Date/Time of Note DATE: 08/28/16 TIME: 11:59 Assessment/Plan VTE Prophylaxis VTE Prophylaxis Intervention: ambulation Lines/Catheters [facility] Saline Lock Urinary Cath still in place: No Assessment/Plan Assessment/Plan Jaundice/Transaminitis Hepatocellular consider autoimmune hepatitis ERCP 08/24/2016 Retained fluid in the stomach (suctioned out.) ? gastroparesis. Normal ampulla of Vater. . Normal cholangiogram. MRI abdomen Hepatomegaly is noted. Hepatic periportal edema is identified, which can be seen in the setting of hepatitis. Splenomegaly is noted measuring 14 cm. . There is mild upper abdominal ascites. . Circumferential gallbladder wall thickening is noted, likely reactive secondary to underlying liver disease. No evidence of cholelithiasis, cholecystitis or biliary dilatation is identified. There is mild anasarca. * Elevated Ca 19-9 * Hx of asthma Plan * awaiting biopsy result * continue present medications Subjective 24 Hr Interval Summary Free Text/Dictation * course reviewed with RN * Patient seen and examined * awaiting biopsy results Exam/Review of Systems Vital Signs Vitals Vital Signs Date Time Temp Pulse Resp B/P Pulse Ox O2 Delivery O2 Flow Rate FiO2 08/28/16 07:33 98.0 64 19 87/50 98 08/27/16 04:00 Room Air 08/24/16 10:17 21 Intake and Output 08/27/16 08/27/16 08/28/16 15:00 23:00 07:00 Intake Total 2140 ml 550 ml Output Total 1100 ml 300 ml Balance 1040 ml 250 ml Exam Constitutional: alert, oriented Psych: no complaints Head: atraumatic, normocephalic Eyes: PERRL, icteric Neck: non-tender, supple Respiratory: clear to auscultation, normal air movement Cardiovascular: nl pulses, regular rate and rhythm Gastrointestinal: non-tender, soft Musculoskeletal: nl extremities to inspection, nl gait and stance Neurological: nl mental status, nl speech, nl strength Results Result Diagram: 08/26/16 0418 08/28/16 0839 Results 24 hrs Laboratory Tests Test 08/28/16 08:39 Sodium Level 137 Potassium Level 3.8 Chloride Level 103 Carbon Dioxide Level 27 Anion Gap 11 Blood Urea Nitrogen 7 Creatinine 0.60 L Glucose Level 86 Calcium Level 8.1 L Total Bilirubin 2.1 H Direct Bilirubin 1.20 H Indirect Bilirubin 0.9 Aspartate Amino Transf (AST/SGOT) 589 H Alanine Aminotransferase (ALT/SGPT) 440 H Alkaline Phosphatase 225 H Total Protein 6.0 L Albumin 2.2 L Globulin 3.80 H Albumin/Globulin Ratio 0.57 Medications Medications Current Medications Ondansetron HCl (Zofran Inj) 4 mg Q6H PRN IV NAUSEA AND/OR VOMITING Last administered on 08/26/16 15:48; Admin Dose 4 MG; Start 08/19/16 at 22:30 Morphine Sulfate (morphine) 2 mg Q4H PRN IV SEVERE PAIN LEVEL 7-10 Last administered on 08/26/16 15:46; Admin Dose 2 MG; Start 08/19/16 at 22:30 Famotidine 20 mg 20 mg Q12 PO Last administered on 08/28/16 10:41; Admin Dose 20 MG; Start 08/20/16 at 09:00 Sodium Chloride (NS) 1,000 ml @ 70 mls/hr [id number] IV Last administered on 08/27 20:31; Admin Dose 70 MLS/HR; Start 08/26/16 at 00:00 JUNG PENA MD August 28, 2016 12:01
[2016-08-28 20:00] VITALS: BP 97/56; PULSE 65; RESP 18
[2016-08-28] MEDS: SOD CHLORIDE 0.9% 1,000 ML IV SCH (23:30)
[2016-08-29 07:45] VITALS: BP 83/47; RESP 19
[2016-08-29] MEDS: FAMOTIDINE 20 MG TAB PO SCH ×2 (08:53→20:47)
--- NOTE | 2016-08-29 10:37 | CONS ---
Date/Time of Note Date/Time of Note DATE: 08/29/16 TIME: 10:36 Assessment/Plan Assessment/Plan Chief Complaint/Hosp Course The patient is a 21 year old male with hyperbilirubinemia, trending down since admission, now bilirubin 2.1 on 08/28/16, of unclear etiology with negative hepatitis panel, undergoing work-up for autoimmune hepatitis, with significantly elevated CA 19-9 at 869 (0-37) and CEA mildly elevated at 7.2 (0-5 ). AFP normal at 2.77 (0-7.21). Repeat CA 19-9 decreased to 571 on 08/25/16. - MRCP 08/20/16 demonstrated hepatomegaly at 20 cm with no focal hepatic mass is identified, hepatic periportal edema is noted, which can be seen in the setting of hepatitis. Gallbladder is contracted, and demonstrates circumferential wall edema, likely reactive secondary to underlying liver disease. Splenomegaly is noted measuring 14 cm. Biliary tree, pancreas, adrenal glands and kidneys are unremarkable. There is no retroperitoneal or terrence hepatis lymphadenopathy. Mild upper abdominal ascites is noted. - Appreciate GI recs. s/p ERCP 08/14/16 that showed no filling defects in CBD, ? gastroparesis for which Reglan was added. - Will consider outpatient EUS to rule out pancreaticobiliary lesion. CA 19-9 is significantly elevated and may be due to underlying inflammatory/autoimmune process, however would need to rule out underlying pancreaticobiliary malignancy such as pancreatic or intrahepatic cholangiocarcinoma. Patient can follow-up with us as an outpatient for EUS/GI referral. - s/p liver biopsy 08/26/16, pending results. # Normocytic anemia, stable, iron panel consistent with anemia of chronic inflammation, B12/folate/TSH WNL, retic count inappropriately low, LDH elevated. Methylmalonic acid and homocysteine within normal limits. Haptoglobin was < 15, which may be secondary to liver disease. Peripheral smear reviewed by path, showed anisocytosis, normal WBCs, no schistocytes or spherocytes. Meaghan' test negative. # Polyarthritis, MAGI negative, anti-mitochondrial Ab neg, smooth muscle Ab negative, ds DNA elevated at 384. Rheumatology follow-up. Problems: Consultation Date/Type/Reason Admit Date/Time August 19, 2016 at 21:48 Initial Consult Date 08/22/16 Type of Consultation: Oncology 24 HR Interval Summary Free Text/Dictation Patient doing well, denies pain. Awaiting liver biopsy results. Exam/Review of Systems Vital Signs Vitals Vital Signs Date Time Temp Pulse Resp B/P Pulse Ox O2 Delivery O2 Flow Rate FiO2 08/29/16 07:45 98.0 62 19 83/47 98 08/27/16 04:00 Room Air Intake and Output 08/28/16 08/28/16 08/29/16 15:00 23:00 07:00 Intake Total 950 ml 300 ml Balance 950 ml 300 ml Exam Constitutional: alert, oriented Psych: no complaints Eyes: icteric Neck: supple Respiratory: clear to auscultation Cardiovascular: regular rate and rhythm Gastrointestinal: non-tender, soft Musculoskeletal: nl extremities to inspection Neurological: GIN CLERK II-XII intact Results Result Diagram: 08/26/16 0418 08/28/16 0839 Results 24 hrs Laboratory Tests Test 08/28/16 12:08 Lab Scanned Report REFERENCE LAB Medications Medications Current Medications Ondansetron HCl (Zofran Inj) 4 mg Q6H PRN IV NAUSEA AND/OR VOMITING Last administered on 08/26/16 15:48; Admin Dose 4 MG; Start 08/19/16 at 22:30 Morphine Sulfate (morphine) 2 mg Q4H PRN IV SEVERE PAIN LEVEL 7-10 Last administered on 08/26/16 15:46; Admin Dose 2 MG; Start 08/19/16 at 22:30 Famotidine 20 mg 20 mg Q12 PO Last administered on 08/29/16 08:53; Admin Dose 20 MG; Start 08/20/16 at 09:00 Sodium Chloride (NS) 1,000 ml @ 70 mls/hr [id number] IV Last administered on 08/27 20:31; Admin Dose 70 MLS/HR; Start 08/26/16 at 00:00 TOCARO MD August 29, 2016 10:37
[2016-08-29] MEDS: SOD CHLORIDE 0.9% 1,000 ML IV SCH ×2 (12:50→20:48)
--- NOTE | 2016-08-29 15:04 | PN ---
Date/Time of Note Date/Time of Note DATE: 08/29/16 TIME: 14:56 Assessment/Plan VTE Prophylaxis VTE Prophylaxis Intervention: SCD's Lines/Catheters IV [facility] Type (from [facility]): Saline Lock Urinary Cath still in place: No Assessment/Plan Chief Complaint/Hosp Course Assessment and plan 1. Hyperbilirubinemia with transaminitis suspect secondary to autoimmune hepatitis. Hepatitis panel is negative. Awaiting biopsy results. Will follow up. 2. Positive tumor markers. Patient noted with elevated CA 199 and CEA in the setting of inflammatory process. Awaiting biopsy from ERCP. Follow-up with oncologist recommendations 3. Polyarthritis. Etiology unclear. Analgesics as needed. 4. History of asthma. No active bronchospasm. Will provide with bronchodilators as needed DVT prophylaxis: Early ambulation GERD prophylaxis: H2 golden Disposition plan: Awaiting ERCP biopsy results. Will follow up. Discharge when medically stable and cleared by consultants Discussed plan of care with Problems: Subjective 24 Hr Interval Summary Free Text/Dictation Comfortable at this time. No apparent distress Exam/Review of Systems Vital Signs Vitals Vital Signs Date Time Temp Pulse Resp B/P Pulse Ox O2 Delivery O2 Flow Rate FiO2 08/29/16 07:45 98.0 62 19 83/47 98 08/27/16 04:00 Room Air Intake and Output 08/28/16 08/28/16 08/29/16 15:00 23:00 07:00 Intake Total 950 ml 300 ml Balance 950 ml 300 ml Exam Constitutional: alert, oriented Head: normocephalic Neck: supple, No jvd Respiratory: clear to auscultation, normal air movement Cardiovascular: regular rate and rhythm Gastrointestinal: non-tender, soft Musculoskeletal: nl extremities to inspection Extremities: normal pulses Neurological: DATABASE SECURITY EXPERT II-XII intact, nl mental status, nl speech Results Result Diagram: 08/26/16 0418 08/28/16 0839 Medications Medications Current Medications Ondansetron HCl (Zofran Inj) 4 mg Q6H PRN IV NAUSEA AND/OR VOMITING Last administered on 08/26/16 15:48; Admin Dose 4 MG; Start 08/19/16 at 22:30 Morphine Sulfate (morphine) 2 mg Q4H PRN IV SEVERE PAIN LEVEL 7-10 Last administered on 08/26/16 15:46; Admin Dose 2 MG; Start 08/19/16 at 22:30 Famotidine 20 mg 20 mg Q12 PO Last administered on 08/29/16 08:53; Admin Dose 20 MG; Start 08/20/16 at 09:00 Sodium Chloride (NS) 1,000 ml @ 70 mls/hr [id number] IV Last administered on 08/27 20:31; Admin Dose 70 MLS/HR; Start 08/26/16 at 00:00 ANAMARIA BLAIR August 29, 2016 15:04
--- NOTE | 2016-08-29 16:09 | PN ---
Date/Time of Note Date/Time of Note DATE: 08/29/16 TIME: 16:07 Assessment/Plan VTE Prophylaxis VTE Prophylaxis Intervention: SCD's Lines/Catheters IV [facility] ([facility] Saline Lock Urinary Cath still in place: No Assessment/Plan Assessment/Plan Jaundice/Transaminitis Hepatocellular consider autoimmune hepatitis ERCP 08/24/2016 Retained fluid in the stomach (suctioned out.) ? gastroparesis. Normal ampulla of Vater. . Normal cholangiogram. MRI abdomen Hepatomegaly is noted. Hepatic periportal edema is identified, which can be seen in the setting of hepatitis. Splenomegaly is noted measuring 14 cm. . There is mild upper abdominal ascites. . Circumferential gallbladder wall thickening is noted, likely reactive secondary to underlying liver disease. No evidence of cholelithiasis, cholecystitis or biliary dilatation is identified. There is mild anasarca. * Elevated Ca 19-9 * Hx of asthma Plan * awaiting biopsy result * continue present medications Subjective 24 Hr Interval Summary Free Text/Dictation * Course reviewed with RN * patient seen and examined * still awaiting biopsy result Exam/Review of Systems Vital Signs Vitals Vital Signs Date Time Temp Pulse Resp B/P Pulse Ox O2 Delivery O2 Flow Rate FiO2 08/29/16 07:45 98.0 62 19 83/47 98 08/27/16 04:00 Room Air Intake and Output 08/28/16 08/28/16 08/29/16 15:00 23:00 07:00 Intake Total 950 ml 300 ml Balance 950 ml 300 ml Exam Constitutional: alert, oriented Neck: non-tender, supple Respiratory: clear to auscultation, normal air movement Cardiovascular: nl pulses, regular rate and rhythm Gastrointestinal: non-tender, soft Musculoskeletal: nl extremities to inspection Extremities: normal pulses Results Result Diagram: 08/26/16 0418 08/28/16 0839 Medications Medications Current Medications Ondansetron HCl (Zofran Inj) 4 mg Q6H PRN IV NAUSEA AND/OR VOMITING Last administered on 08/26/16 15:48; Admin Dose 4 MG; Start 08/19/16 at 22:30 Morphine Sulfate (morphine) 2 mg Q4H PRN IV SEVERE PAIN LEVEL 7-10 Last administered on 08/26/16 15:46; Admin Dose 2 MG; Start 08/19/16 at 22:30 Famotidine 20 mg 20 mg Q12 PO Last administered on 08/29/16 08:53; Admin Dose 20 MG; Start 08/20/16 at 09:00 Sodium Chloride (NS) 1,000 ml @ 70 mls/hr [id number] IV Last administered on 08/27 20:31; Admin Dose 70 MLS/HR; Start 08/26/16 at 00:00 JUNG PENA MD August 29, 2016 16:09
[2016-08-29 20:34] VITALS: BP 91/52; RESP 16
[2016-08-30 07:59] VITALS: BP 86/49; RESP 19
[2016-08-30] MEDS: FAMOTIDINE 20 MG TAB PO SCH ×2 (08:53→21:16)
--- NOTE | 2016-08-30 13:53 | PN ---
Date/Time of Note Date/Time of Note DATE: 08/30/16 TIME: 13:52 Assessment/Plan VTE Prophylaxis VTE Prophylaxis Intervention: SCD's Lines/Catheters IV Catheter Type (from [facility]): Saline Lock Urinary Cath still in place: No Assessment/Plan Chief Complaint/Hosp Course Assessment and plan 1. Hyperbilirubinemia with transaminitis suspect secondary to autoimmune hepatitis. Hepatitis panel is negative. Awaiting biopsy results. 2. Positive tumor markers. Patient noted with elevated CA 199 and CEA in the setting of inflammatory process. Awaiting biopsy from ERCP. Follow-up with oncologist recommendations 3. Polyarthritis. Etiology unclear. Analgesics as needed. Tentative plan for outpatient consultation by rheumatology 4. History of asthma. No active bronchospasm. Will provide with bronchodilators as needed DVT prophylaxis: Early ambulation GERD prophylaxis: H2 golden Disposition plan: Still awaiting biopsy results. Discharge and cleared by consultants Discussed plan of care with Problems: Subjective 24 Hr Interval Summary Free Text/Dictation Comfortable at this time. Denies any pain Exam/Review of Systems Vital Signs Vitals Vital Signs Date Time Temp Pulse Resp B/P Pulse Ox O2 Delivery O2 Flow Rate FiO2 08/30/16 07:59 96.2 63 19 86/49 99 08/27/16 04:00 Room Air Intake and Output 08/29/16 08/29/16 08/30/16 15:00 23:00 07:00 Intake Total 500 ml 1080 ml Balance 500 ml 1080 ml Exam Constitutional: alert, oriented Psych: nl mood/affect Head: normocephalic Neck: supple, No jvd Respiratory: clear to auscultation, normal air movement Cardiovascular: regular rate and rhythm Gastrointestinal: non-tender, soft Musculoskeletal: nl extremities to inspection Extremities: normal pulses Neurological: CUSTOMER SERVICE REPRESENTATIVE TELLER II-XII intact, nl mental status, nl speech Skin: nl turgor Results Result Diagram: 08/26/16 0418 08/28/16 0839 Medications Medications Current Medications Ondansetron HCl (Zofran Inj) 4 mg Q6H PRN IV NAUSEA AND/OR VOMITING Last administered on 08/26/16 15:48; Admin Dose 4 MG; Start 08/19/16 at 22:30 Morphine Sulfate (morphine) 2 mg Q4H PRN IV SEVERE PAIN LEVEL 7-10 Last administered on 08/26/16 15:46; Admin Dose 2 MG; Start 08/19/16 at 22:30 Famotidine 20 mg 20 mg Q12 PO Last administered on 08/30/16 08:53; Admin Dose 20 MG; Start 08/20/16 at 09:00 Sodium Chloride (NS) 1,000 ml @ 70 mls/hr [id number] IV Last administered on 08/29 20:48; Admin Dose 70 MLS/HR; Start 08/26/16 at 00:00 ANAMARIA BLAIR August 30, 2016 13:53
--- NOTE | 2016-08-30 16:00 | PN ---
Date/Time of Note Date/Time of Note DATE: 08/30/16 TIME: 15:59 Assessment/Plan VTE Prophylaxis VTE Prophylaxis Intervention: SCD's, other Lines/Catheters IV Catheter Type (from [facility]): Saline Lock Urinary Cath still in place: No Assessment/Plan Assessment/Plan Jaundice/Transaminitis Hepatocellular consider autoimmune hepatitis ERCP 08/24/2016 Retained fluid in the stomach (suctioned out.) ? gastroparesis. Normal ampulla of Vater. . Normal cholangiogram. MRI abdomen Hepatomegaly is noted. Hepatic periportal edema is identified, which can be seen in the setting of hepatitis. Splenomegaly is noted measuring 14 cm. . There is mild upper abdominal ascites. . Circumferential gallbladder wall thickening is noted, likely reactive secondary to underlying liver disease. No evidence of cholelithiasis, cholecystitis or biliary dilatation is identified. There is mild anasarca. * Elevated Ca 19-9 * Hx of asthma Plan * awaiting biopsy result * continue present medications Subjective 24 Hr Interval Summary Free Text/Dictation * Course reviewed with RN * Patient seen and examined * awaiting biopsy result Exam/Review of Systems Vital Signs Vitals Vital Signs Date Time Temp Pulse Resp B/P Pulse Ox O2 Delivery O2 Flow Rate FiO2 08/30/16 07:59 96.2 63 19 86/49 99 08/27/16 04:00 Room Air Intake and Output 08/29/16 08/29/16 08/30/16 14:59 22:59 06:59 Intake Total 0 ml 500 ml 1080 ml Balance 0 ml 500 ml 1080 ml Exam Constitutional: alert Head: normocephalic Neck: non-tender, supple Respiratory: clear to auscultation, normal air movement Cardiovascular: nl pulses, regular rate and rhythm Gastrointestinal: soft Musculoskeletal: nl extremities to inspection Extremities: normal pulses Results Result Diagram: 08/26/16 0418 08/28/16 0839 Medications Medications Current Medications Ondansetron HCl (Zofran Inj) 4 mg Q6H PRN IV NAUSEA AND/OR VOMITING Last administered on 08/26/16 15:48; Admin Dose 4 MG; Start 08/19/16 at 22:30 Morphine Sulfate (morphine) 2 mg Q4H PRN IV SEVERE PAIN LEVEL 7-10 Last administered on 08/26/16 15:46; Admin Dose 2 MG; Start 08/19/16 at 22:30 Famotidine 20 mg 20 mg Q12 PO Last administered on 08/30/16 08:53; Admin Dose 20 MG; Start 08/20/16 at 09:00 Sodium Chloride (NS) 1,000 ml @ 70 mls/hr [id number] IV Last administered on 08/29 20:48; Admin Dose 70 MLS/HR; Start 08/26/16 at 00:00 JUNG PENA MD August 30, 2016 16:00
[2016-08-30 17:16] LABS: BILIRUBIN,DIRECT 0.7 mg/dl (0.00-0.20); BILIRUBIN,INDIRECT 0.9 mg/dl (0-1.1); BILIRUBIN,TOTAL 1.6 mg/dl (0.2-1.3)
[2016-08-30] MEDS: SOD CHLORIDE 0.9% 1,000 ML IV SCH ×2 (17:28→21:27)
[2016-08-30 20:43] VITALS: BP 101/56; RESP 20
[2016-08-31 08:08] VITALS: BP 102/54; RESP 18
[2016-08-31] MEDS: FAMOTIDINE 20 MG TAB PO SCH ×2 (08:22→20:14)
--- NOTE | 2016-08-31 11:43 | CONS ---
Date/Time of Note Date/Time of Note DATE: 08/31/16 TIME: 11:42 Assessment/Plan Assessment/Plan Chief Complaint/Hosp Course The patient is a 21 year old male with hyperbilirubinemia, trending down since admission, now bilirubin 2.1 on 08/28/16, of unclear etiology with negative hepatitis panel, undergoing work-up for autoimmune hepatitis, with significantly elevated CA 19-9 at 869 (0-37) and CEA mildly elevated at 7.2 (0-5 ). AFP normal at 2.77 (0-7.21). Repeat CA 19-9 decreased to 571 on 08/25/16. - MRCP 08/20/16 demonstrated hepatomegaly at 20 cm with no focal hepatic mass is identified, hepatic periportal edema is noted, which can be seen in the setting of hepatitis. Gallbladder is contracted, and demonstrates circumferential wall edema, likely reactive secondary to underlying liver disease. Splenomegaly is noted measuring 14 cm. Biliary tree, pancreas, adrenal glands and kidneys are unremarkable. There is no retroperitoneal or terrence hepatis lymphadenopathy. Mild upper abdominal ascites is noted. - Appreciate GI recs. s/p ERCP 08/14/16 that showed no filling defects in CBD, ? gastroparesis for which Reglan was added. - Will consider outpatient EUS to rule out pancreaticobiliary lesion. CA 19-9 is significantly elevated and may be due to underlying inflammatory/autoimmune process, however would need to rule out underlying pancreaticobiliary malignancy such as pancreatic or intrahepatic cholangiocarcinoma. Patient can follow-up with us as an outpatient for EUS/GI referral. Pending auth for patient to follow up with me as an outpatient as well as for EUS/GI referral. 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 -- No malignancy or liver cirrhosis is identified. COMMENT: Autoimmune hepatitis and primary biliary cirrhosis are a consideration. This case will be sent in consultation with Dr. Ralph Estrada of [facility] and a final report will follow. # Normocytic anemia, stable, iron panel consistent with anemia of chronic inflammation, B12/folate/TSH WNL, retic count inappropriately low, LDH elevated. Methylmalonic acid and homocysteine within normal limits. Haptoglobin was < 15, which may be secondary to liver disease. Peripheral smear reviewed by path, showed anisocytosis, normal WBCs, no schistocytes or spherocytes. Meaghan' test negative. # Polyarthritis, MAGI negative, anti-mitochondrial Ab neg, smooth muscle Ab negative, ds DNA elevated at 384. Rheumatology follow-up. Problems: Consultation Date/Type/Reason Admit Date/Time August 19, 2016 at 21:48 Initial Consult Date 08/22/16 Type of Consultation: Oncology 24 HR Interval Summary Free Text/Dictation Patient doing well, no complaints. No abdominal pain. Exam/Review of Systems Vital Signs Vitals Vital Signs Date Time Temp Pulse Resp B/P Pulse Ox O2 Delivery O2 Flow Rate FiO2 08/31/16 08:08 98.2 64 18 102/54 99 Intake and Output 08/30/16 08/30/16 08/31/16 15:00 23:00 07:00 Intake Total 350 ml 480 ml 1030 ml Balance 350 ml 480 ml 1030 ml Exam Constitutional: alert, oriented Psych: no complaints Eyes: icteric Neck: supple Respiratory: clear to auscultation Cardiovascular: regular rate and rhythm Gastrointestinal: non-tender, soft Musculoskeletal: nl extremities to inspection Neurological: GIFT CONSULTANT II-XII intact Results Result Diagram: 08/28/16 0839 Results 24 hrs Laboratory Tests Test 08/30/16 16:45 Total Bilirubin 1.6 H Direct Bilirubin 0.70 H Indirect Bilirubin 0.9 Aspartate Amino Transf (AST/SGOT) 722 H Alanine Aminotransferase (ALT/SGPT) 597 H Alkaline Phosphatase 288 H Medications Medications Current Medications Ondansetron HCl (Zofran Inj) 4 mg Q6H PRN IV NAUSEA AND/OR VOMITING Last administered on 08/26/16 15:48; Admin Dose 4 MG; Start 08/19/16 at 22:30 Morphine Sulfate (morphine) 2 mg Q4H PRN IV SEVERE PAIN LEVEL 7-10 Last administered on 08/26/16 15:46; Admin Dose 2 MG; Start 08/19/16 at 22:30 Famotidine 20 mg 20 mg Q12 PO Last administered on 08/31/16 08:22; Admin Dose 20 MG; Start 08/20/16 at 09:00 Sodium Chloride (NS) 1,000 ml @ 70 mls/hr [id number] IV Last administered on 5/23 /17at 21:27; Admin Dose 70 MLS/HR; Start 08/26/16 at 00:00 TOCARO MD August 31, 2016 11:43
[2016-08-31] MEDS: SOD CHLORIDE 0.9% 1,000 ML IV SCH (13:56)
[2016-08-31] MEDS: predniSONE 20 MG TAB PO SCH (14:18)
--- NOTE | 2016-08-31 14:39 | PN ---
Date/Time of Note Date/Time of Note DATE: 08/31/16 TIME: 14:35 Assessment/Plan VTE Prophylaxis VTE Prophylaxis Intervention: ambulation Lines/Catheters IV [facility]from [facility] Peripheral IV Urinary Cath still in place: No Assessment/Plan Chief Complaint/Hosp Course Assessment and plan 1. Hyperbilirubinemia with transaminitis suspect secondary to autoimmune hepatitis. Hepatitis panel is negative. Preliminary biopsy negative for any malignancy or liver cirrhosis. Autoimmune hepatitis versus primary biliary cirrhosis considered. Discussed with Dr. Brush, will start patient on steroid empirically. Monitor for clinical improvement 2. Positive tumor markers. Patient noted with elevated CA 199 and CEA in the setting of inflammatory process. Follow-up with oncologist recommendations 3. Polyarthritis. Etiology unclear. Analgesics as needed. Tentative plan for outpatient consultation by rheumatology 4. History of asthma. No active bronchospasm. Will provide with bronchodilators as needed DVT prophylaxis: Early ambulation GERD prophylaxis: H2 golden Disposition plan: Patient started on prednisone. Will assess for clinical improvement of hepatitis Discussed plan of care with Problems: Subjective 24 Hr Interval Summary Free Text/Dictation denies any pain. no s/s of distress Exam/Review of Systems Vital Signs Vitals Vital Signs Date Time Temp Pulse Resp B/P Pulse Ox O2 Delivery O2 Flow Rate FiO2 08/31/16 08:08 98.2 64 18 102/54 99 Intake and Output 08/30/16 08/30/16 08/31/16 15:00 23:00 07:00 Intake Total 350 ml 480 ml 1030 ml Balance 350 ml 480 ml 1030 ml Exam Constitutional: alert, oriented Head: normocephalic Respiratory: clear to auscultation, normal air movement Cardiovascular: regular rate and rhythm Gastrointestinal: non-tender, soft Musculoskeletal: nl extremities to inspection Extremities: normal pulses Neurological: TECHNICAL TESTING ENGINEER II-XII intact, nl mental status, nl speech Skin: nl turgor Results Result Diagram: 08/28/16 0839 Results 24 hrs Laboratory Tests Test 08/30/16 16:45 Total Bilirubin 1.6 H Direct Bilirubin 0.70 H Indirect Bilirubin 0.9 Aspartate Amino Transf (AST/SGOT) 722 H Alanine Aminotransferase (ALT/SGPT) 597 H Alkaline Phosphatase 288 H Medications Medications Current Medications Ondansetron HCl (Zofran Inj) 4 mg Q6H PRN IV NAUSEA AND/OR VOMITING Last administered on 08/26/16 15:48; Admin Dose 4 MG; Start 08/19/16 at 22:30 Morphine Sulfate (morphine) 2 mg Q4H PRN IV SEVERE PAIN LEVEL 7-10 Last administered on 08/26/16 15:46; Admin Dose 2 MG; Start 08/19/16 at 22:30 Famotidine 20 mg 20 mg Q12 PO Last administered on 08/31/16 08:22; Admin Dose 20 MG; Start 08/20/16 at 09:00 Sodium Chloride (NS) 1,000 ml @ 70 mls/hr [id number] IV Last administered on 08/31 13:56; Admin Dose 70 MLS/HR; Start 08/26/16 at 00:00 Prednisone (Prednisone) 60 mg DAILY PO Last administered on 08/31/16 14:18; Admin Dose 60 MG; Start 08/31/16 at 14:00 ANAMARIA BLAIR August 31, 2016 14:39
--- NOTE | 2016-08-31 16:29 | PN ---
Date/Time of Note Date/Time of Note DATE: 08/31/16 TIME: 16:26 Assessment/Plan VTE Prophylaxis VTE Prophylaxis Intervention: ambulation Lines/Catheters IV C[facility]ter Type (from [facility]): Peripheral IV Urinary Cath still in place: No Assessment/Plan Assessment/Plan Jaundice/Transaminitis Hepatocellular consider autoimmune hepatitis ERCP 08/24/2016 Retained fluid in the stomach (suctioned out.) ? gastroparesis. Normal ampulla of Vater. . Normal cholangiogram. MRI abdomen Hepatomegaly is noted. Hepatic periportal edema is identified, which can be seen in the setting of hepatitis. Splenomegaly is noted measuring 14 cm. . There is mild upper abdominal ascites. . Circumferential gallbladder wall thickening is noted, likely reactive secondary to underlying liver disease. No evidence of cholelithiasis, cholecystitis or biliary dilatation is identified. There is mild anasarca. * Elevated Ca 19-9 * Hx of asthma Plan * awaiting final biopsy reading * continue present medications Subjective 24 Hr Interval Summary Free Text/Dictation * Course reviewed with RN * Patient seen and examined * Preliminary report Liver, needle core biopsies: -- Chronic hepatitis with portal and lobular inflammation and interface activity , cholangiolitis and portal, periportal, pericellular fibrosis and focal bridging fibrosis (see comment). -- No malignancy or liver cirrhosis is identified. COMMENT: Autoimmune hepatitis and primary biliary cirrhosis are a consideration. This case will be sent in consultation with Dr. Ralph Estrada of [facility] and a final report will follow. Exam/Review of Systems Vital Signs Vitals Vital Signs Date Time Temp Pulse Resp B/P Pulse Ox O2 Delivery O2 Flow Rate FiO2 08/31/16 08:08 98.2 64 18 102/54 99 Intake and Output 08/30/16 08/30/16 08/31/16 14:59 22:59 06:59 Intake Total 350 ml 480 ml 1030 ml Balance 350 ml 480 ml 1030 ml Exam Constitutional: alert, oriented Eyes: nl conjunctiva Neck: non-tender, supple Respiratory: clear to auscultation, normal air movement Cardiovascular: nl pulses, regular rate and rhythm Gastrointestinal: soft Musculoskeletal: nl extremities to inspection, nl gait and stance Extremities: normal pulses Results Result Diagram: 08/28/16 0839 Results 24 hrs Laboratory Tests Test 08/30/16 16:45 Total Bilirubin 1.6 H Direct Bilirubin 0.70 H Indirect Bilirubin 0.9 Aspartate Amino Transf (AST/SGOT) 722 H Alanine Aminotransferase (ALT/SGPT) 597 H Alkaline Phosphatase 288 H Medications Medications Current Medications Ondansetron HCl (Zofran Inj) 4 mg Q6H PRN IV NAUSEA AND/OR VOMITING Last administered on 08/26/16 15:48; Admin Dose 4 MG; Start 08/19/16 at 22:30 Morphine Sulfate (morphine) 2 mg Q4H PRN IV SEVERE PAIN LEVEL 7-10 Last administered on 08/26/16 15:46; Admin Dose 2 MG; Start 08/19/16 at 22:30 Famotidine 20 mg 20 mg Q12 PO Last administered on 08/31/16 08:22; Admin Dose 20 MG; Start 08/20/16 at 09:00 Sodium Chloride (NS) 1,000 ml @ 70 mls/hr [id number] IV Last administered on 08/31 13:56; Admin Dose 70 MLS/HR; Start 08/26/16 at 00:00 Prednisone (Prednisone) 60 mg DAILY PO Last administered on 08/31/16 14:18; Admin Dose 60 MG; Start 08/31/16 at 14:00 JUNG PENA MD August 31, 2016 16:28
[2016-08-31 21:22] VITALS: BP 99/58; RESP 20
[2016-09-01] MEDS: SOD CHLORIDE 0.9% 1,000 ML IV SCH ×2 (04:20→13:18)
[2016-09-01 05:42] LABS: ALBUMIN 2.3 g/dl (3.3-4.9); ALBUMIN/GLOBULIN RATIO 0.58; BILIRUBIN,DIRECT 0.6 mg/dl (0.00-0.20); BILIRUBIN,INDIRECT 0.6 mg/dl (0-1.1); BILIRUBIN,TOTAL 1.2 mg/dl (0.2-1.3); CALCIUM 8.2 mg/dl (8.4-10.2); CREATININE 0.51 mg/dl (0.61-1.24); POTASSIUM 4.4 mmol/L (3.5-5.1); TOTAL PROTEIN 6.2 g/dl (6.1-8.1)
[2016-09-01] MEDS: FAMOTIDINE 20 MG TAB PO SCH ×2 (09:01→20:21)
[2016-09-01] MEDS: predniSONE 20 MG TAB PO SCH (09:01)
[2016-09-01 09:16] VITALS: BP 94/58; RESP 20
--- NOTE | 2016-09-01 09:44 | CONS ---
Date/Time of Note Date/Time of Note DATE: 09/01/16 TIME: 09:42 Assessment/Plan Assessment/Plan Chief Complaint/Hosp Course The patient is a 21 year old male with hyperbilirubinemia, trending down since admission, now bilirubin 1.2 on 09/01/16, of unclear etiology with negative hepatitis panel, undergoing work-up for autoimmune hepatitis, with significantly elevated CA 19-9 at 869 (0-37) and CEA mildly elevated at 7.2 (0-5 ). AFP normal at 2.77 (0-7.21). Repeat CA 19-9 decreased to 571 on 08/25/16. - MRCP 08/20/16 demonstrated hepatomegaly at 20 cm with no focal hepatic mass is identified, hepatic periportal edema is noted, which can be seen in the setting of hepatitis. Gallbladder is contracted, and demonstrates circumferential wall edema, likely reactive secondary to underlying liver disease. Splenomegaly is noted measuring 14 cm. Biliary tree, pancreas, adrenal glands and kidneys are unremarkable. There is no retroperitoneal or terrence hepatis lymphadenopathy. Mild upper abdominal ascites is noted. - Appreciate GI recs. s/p ERCP 08/14/16 that showed no filling defects in CBD, ? gastroparesis for which Reglan was added. - Will consider outpatient EUS to rule out pancreaticobiliary lesion. CA 19-9 is significantly elevated and may be due to underlying inflammatory/autoimmune process, however would need to rule out underlying pancreaticobiliary malignancy such as pancreatic or intrahepatic cholangiocarcinoma. Patient can follow-up with us as an outpatient for EUS/GI referral. Pending auth for patient to follow up with me as an outpatient as well as for EUS/GI referral - may need to be referred by primary care physician per case management. 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 -- No malignancy or liver cirrhosis is identified. COMMENT: Autoimmune hepatitis and primary biliary cirrhosis are a consideration. This case will be sent in consultation with Dr. Ralph Estrada of [facility] and a final report will follow. # Normocytic anemia, stable, iron panel consistent with anemia of chronic inflammation, B12/folate/TSH WNL, retic count inappropriately low, LDH elevated. Methylmalonic acid and homocysteine within normal limits. Haptoglobin was < 15, which may be secondary to liver disease. Peripheral smear reviewed by path, showed anisocytosis, normal WBCs, no schistocytes or spherocytes. Meaghan' test negative. # Polyarthritis, MAGI negative, anti-mitochondrial Ab neg, smooth muscle Ab negative, ds DNA elevated at 384. Rheumatology follow-up. Problems: Consultation Date/Type/Reason Admit Date/Time August 19, 2016 at 21:48 Initial Consult Date 08/22/16 Type of Consultation: Oncology 24 HR Interval Summary Free Text/Dictation Patient doing well, no pain. Exam/Review of Systems Vital Signs Vitals Vital Signs Date Time Temp Pulse Resp B/P Pulse Ox O2 Delivery O2 Flow Rate FiO2 09/01/16 09:16 97.3 71 20 94/58 100 Intake and Output 08/31/16 08/31/16 09/01/16 14:59 22:59 06:59 Intake Total 470 ml 1850 ml 1640 ml Output Total 800 ml Balance 470 ml 1050 ml 1640 ml Exam Constitutional: alert, oriented Psych: nl mood/affect, no complaints Head: normocephalic Eyes: nl conjunctiva ENMT: nl external ears & nose, nl lips & teeth Neck: non-tender, supple Respiratory: clear to auscultation, normal air movement Cardiovascular: regular rate and rhythm Gastrointestinal: soft Musculoskeletal: nl extremities to inspection, nl gait and stance Extremities: normal pulses, mild diffuse rash Results Result Diagram: 09/01/16 0415 Results 24 hrs Laboratory Tests Test 09/01/16 04:15 Sodium Level 134 L Potassium Level 4.4 Chloride Level 106 Carbon Dioxide Level 26 Anion Gap 6 L Blood Urea Nitrogen 7 Creatinine 0.51 L Glucose Level 106 Calcium Level 8.2 L Total Bilirubin 1.2 Direct Bilirubin 0.60 H Indirect Bilirubin 0.6 Aspartate Amino Transf (AST/SGOT) 578 H Alanine Aminotransferase (ALT/SGPT) 515 H Alkaline Phosphatase 243 H Total Protein 6.2 Albumin 2.3 L Globulin 3.90 H Albumin/Globulin Ratio 0.58 Medications Medications Current Medications Ondansetron HCl (Zofran Inj) 4 mg Q6H PRN IV NAUSEA AND/OR VOMITING Last administered on 08/26/16t 15:48; Admin Dose 4 MG; Start 08/19/16 at 22:30 Morphine Sulfate (morphine) 2 mg Q4H PRN IV SEVERE PAIN LEVEL 7-10 Last administered on 08/26/16 15:46; Admin Dose 2 MG; Start 08/19/16 at 22:30 Famotidine 20 mg 20 mg Q12 PO Last administered on 09/01/16 09:01; Admin Dose 20 MG; Start 08/20/16 at 09:00 Sodium Chloride (NS) 1,000 ml @ 70 mls/hr [id number] IV Last administered on 09/01 04:20; Admin Dose 70 MLS/HR; Start 08/26/16 at 00:00 Prednisone (Prednisone) 60 mg DAILY PO Last administered on 09/01/16 09:01; Admin Dose 60 MG; Start 08/31/16 at 14:00 TO,CARO Hernandez MD September 01, 2016 09:44
--- NOTE | 2016-09-01 14:53 | PN ---
Date/Time of Note Date/Time of Note DATE: 09/01/16 TIME: 14:49 Assessment/Plan VTE Prophylaxis VTE Prophylaxis Intervention: SCD's Lines/Catheters IV Catheter Type (from [facility]): Peripheral IV Urinary Cath still in place: No Assessment/Plan Chief Complaint/Hosp Course Assessment and plan 1. Hyperbilirubinemia with transaminitis suspect secondary to autoimmune hepatitis. Hepatitis panel is negative. Preliminary biopsy negative for any malignancy or liver cirrhosis. Autoimmune hepatitis versus primary biliary cirrhosis considered. Continue on steroid treatment. Await final pathology results 2. Positive tumor markers. Patient noted with elevated CA 199 and CEA in the setting of inflammatory process. Follow-up with oncologist recommendations 3. Polyarthritis. Etiology unclear. Analgesics as needed. Tentative plan for outpatient consultation by rheumatology 4. History of asthma. No active bronchospasm. Will provide with bronchodilators as needed DVT prophylaxis: Early ambulation GERD prophylaxis: H2 golden Disposition plan: continue on prednisone. Await final pathology result. still with elevated LFT. monitor for further downward trend prior to d/c Discussed plan of care with Problems: Subjective 24 Hr Interval Summary Free Text/Dictation comfortable at present. no s/s of distress Exam/Review of Systems Vital Signs Vitals Vital Signs Date Time Temp Pulse Resp B/P Pulse Ox O2 Delivery O2 Flow Rate FiO2 09/01/16 09:16 97.3 71 20 94/58 100 Intake and Output 08/31/16 08/31/16 09/01/16 15:00 23:00 07:00 Intake Total 470 ml 1850 ml 1640 ml Output Total 800 ml Balance 470 ml 1050 ml 1640 ml Exam Constitutional: alert, oriented Head: normocephalic Eyes: nl conjunctiva Neck: supple, No jvd Respiratory: normal air movement Cardiovascular: other (regular rate ) Gastrointestinal: non-tender, soft Musculoskeletal: nl extremities to inspection, nl gait and stance Neurological: SHELL SORTER II-XII intact, nl mental status, nl speech Skin: nl turgor Results Result Diagram: 09/01/16 0415 Results 24 hrs Laboratory Tests Test 09/01/16 04:15 Sodium Level 134 L Potassium Level 4.4 Chloride Level 106 Carbon Dioxide Level 26 Anion Gap 6 L Blood Urea Nitrogen 7 Creatinine 0.51 L Glucose Level 106 Calcium Level 8.2 L Total Bilirubin 1.2 Direct Bilirubin 0.60 H Indirect Bilirubin 0.6 Aspartate Amino Transf (AST/SGOT) 578 H Alanine Aminotransferase (ALT/SGPT) 515 H Alkaline Phosphatase 243 H Total Protein 6.2 Albumin 2.3 L Globulin 3.90 H Albumin/Globulin Ratio 0.58 Medications Medications Current Medications Ondansetron HCl (Zofran Inj) 4 mg Q6H PRN IV NAUSEA AND/OR VOMITING Last administered on 08/26/16 15:48; Admin Dose 4 MG; Start 08/19/16 at 22:30 Morphine Sulfate (morphine) 2 mg Q4H PRN IV SEVERE PAIN LEVEL 7-10 Last administered on 08/26/16 15:46; Admin Dose 2 MG; Start 08/19/16 at 22:30 Famotidine 20 mg 20 mg Q12 PO Last administered on 09/01/16 09:01; Admin Dose 20 MG; Start 08/20/16 at 09:00 Sodium Chloride (NS) 1,000 ml @ 70 mls/hr [id number] IV Last administered on 09/01 04:20; Admin Dose 70 MLS/HR; Start 08/26/16 at 00:00 Prednisone (Prednisone) 60 mg DAILY PO Last administered on 09/01/16 09:01; Admin Dose 60 MG; Start 08/31/16 at 14:00 ANAMARIA BLAIR September 01, 2016 14:53
--- NOTE | 2016-09-01 16:34 | PN ---
Date/Time of Note Date/Time of Note DATE: 09/01/16 TIME: 16:31 Assessment/Plan VTE Prophylaxis VTE Prophylaxis Intervention: ambulation Lines/Catheters IV [facility]ter Type (from [facility]): Peripheral IV Urinary Cath still in place: No Assessment/Plan Assessment/Plan Jaundice/Transaminitis Hepatocellular consider autoimmune hepatitis vs primary biliary cirrhosis ERCP 08/24/2016 Retained fluid in the stomach (suctioned out.) ? gastroparesis. Normal ampulla of Vater. . Normal cholangiogram. MRI abdomen Hepatomegaly is noted. Hepatic periportal edema is identified, which can be seen in the setting of hepatitis. Splenomegaly is noted measuring 14 cm. . There is mild upper abdominal ascites. . Circumferential gallbladder wall thickening is noted, likely reactive secondary to underlying liver disease. No evidence of cholelithiasis, cholecystitis or biliary dilatation is identified. There is mild anasarca. * Elevated Ca 19-9 * Hx of asthma Subjective 24 Hr Interval Summary Free Text/Dictation * Course reviewed * Patient seen and examine Exam/Review of Systems Vital Signs Vitals Vital Signs Date Time Temp Pulse Resp B/P Pulse Ox O2 Delivery O2 Flow Rate FiO2 09/01/16 09:16 97.3 71 20 94/58 100 Intake and Output 08/31/16 08/31/16 09/01/16 15:00 23:00 07:00 Intake Total 470 ml 1850 ml 1640 ml Output Total 800 ml Balance 470 ml 1050 ml 1640 ml Exam Constitutional: alert Eyes: icteric Neck: non-tender, supple Respiratory: clear to auscultation, normal air movement Cardiovascular: nl pulses, regular rate and rhythm Gastrointestinal: bowel sounds, soft Musculoskeletal: nl extremities to inspection Extremities: normal pulses Results Result Diagram: 09/01/16 0415 Results 24 hrs Laboratory Tests Test 09/01/16 04:15 Sodium Level 134 L Potassium Level 4.4 Chloride Level 106 Carbon Dioxide Level 26 Anion Gap 6 L Blood Urea Nitrogen 7 Creatinine 0.51 L Glucose Level 106 Calcium Level 8.2 L Total Bilirubin 1.2 Direct Bilirubin 0.60 H Indirect Bilirubin 0.6 Aspartate Amino Transf (AST/SGOT) 578 H Alanine Aminotransferase (ALT/SGPT) 515 H Alkaline Phosphatase 243 H Total Protein 6.2 Albumin 2.3 L Globulin 3.90 H Albumin/Globulin Ratio 0.58 Medications Medications Current Medications Ondansetron HCl (Zofran Inj) 4 mg Q6H PRN IV NAUSEA AND/OR VOMITING Last administered on 08/26/16 15:48; Admin Dose 4 MG; Start 08/19/16 at 22:30 Morphine Sulfate (morphine) 2 mg Q4H PRN IV SEVERE PAIN LEVEL 7-10 Last administered on 08/26/16 15:46; Admin Dose 2 MG; Start 08/19/16 at 22:30 Famotidine 20 mg 20 mg Q12 PO Last administered on 09/01/16 09:01; Admin Dose 20 MG; Start 08/20/16 at 09:00 Sodium Chloride (NS) 1,000 ml @ 70 mls/hr [id number] IV Last administered on 09/01 04:20; Admin Dose 70 MLS/HR; Start 08/26/16 at 00:00 Prednisone (Prednisone) 60 mg DAILY PO Last administered on 09/01/16 09:01; Admin Dose 60 MG; Start 08/31/16 at 14:00 JUNG PENA MD September 01, 2016 16:34
[2016-09-01 19:00] VITALS: BP 100/59; RESP 18
[2016-09-02] MEDS: SOD CHLORIDE 0.9% 1,000 ML IV SCH (02:08)
[2016-09-02 05:19] LABS: ALBUMIN 2.3 g/dl (3.3-4.9); ALBUMIN/GLOBULIN RATIO 0.62; BILIRUBIN,INDIRECT 0.5 mg/dl (0-1.1); BILIRUBIN,TOTAL 0.5 mg/dl (0.2-1.3); CALCIUM 8.5 mg/dl (8.4-10.2); CREATININE 0.49 mg/dl (0.61-1.24); POTASSIUM 4.2 mmol/L (3.5-5.1)
[2016-09-02 07:00] VITALS: BP 98/56; RESP 20
[2016-09-02] MEDS: FAMOTIDINE 20 MG TAB PO SCH ×2 (08:38→21:14)
[2016-09-02] MEDS: predniSONE 20 MG TAB PO SCH (08:38)
--- NOTE | 2016-09-02 10:24 | CONS ---
Date/Time of Note Date/Time of Note DATE: 09/02/16 TIME: 10:23 Assessment/Plan Assessment/Plan Chief Complaint/Hosp Course The patient is a 21 year old male with hyperbilirubinemia, trending down since admission, now bilirubin 1.2 on 09/01/16 and today 0.5 on 09/02/16 with transaminases trending down to 200-400 range, of unclear etiology with negative hepatitis panel, undergoing work-up for autoimmune hepatitis, with significantly elevated CA 19-9 at 869 (0-37) and CEA mildly elevated at 7.2 (0-5 ). AFP normal at 2.77 (0-7.21). Repeat CA 19-9 decreased to 571 on 08/25/16. - MRCP 08/20/16 demonstrated hepatomegaly at 20 cm with no focal hepatic mass is identified, hepatic periportal edema is noted, which can be seen in the setting of hepatitis. Gallbladder is contracted, and demonstrates circumferential wall edema, likely reactive secondary to underlying liver disease. Splenomegaly is noted measuring 14 cm. Biliary tree, pancreas, adrenal glands and kidneys are unremarkable. There is no retroperitoneal or terrence hepatis lymphadenopathy. Mild upper abdominal ascites is noted. - Appreciate GI recs. s/p ERCP 08/14/16 that showed no filling defects in CBD, ? gastroparesis for which Reglan was added. - Will consider outpatient EUS to rule out pancreaticobiliary lesion. CA 19-9 is significantly elevated and may be due to underlying inflammatory/autoimmune process, however would need to rule out underlying pancreaticobiliary malignancy such as pancreatic or intrahepatic cholangiocarcinoma. Patient can follow-up with us as an outpatient for EUS/GI referral. Pending auth for patient to follow up with me as an outpatient as well as for EUS/GI referral - may need to be referred by primary care physician per case management. 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 -- No malignancy or liver cirrhosis is identified. COMMENT: Autoimmune hepatitis and primary biliary cirrhosis are a consideration. This case will be sent in consultation with Dr. Ralph Estrada of [facility] and a final report will follow. # Normocytic anemia, stable, iron panel consistent with anemia of chronic inflammation, B12/folate/TSH WNL, retic count inappropriately low, LDH elevated. Methylmalonic acid and homocysteine within normal limits. Haptoglobin was < 15, which may be secondary to liver disease. Peripheral smear reviewed by path, showed anisocytosis, normal WBCs, no schistocytes or spherocytes. Meaghan' test negative. # Polyarthritis, MAGI negative, anti-mitochondrial Ab neg, smooth muscle Ab negative, ds DNA elevated at 384. Rheumatology follow-up. Problems: Consultation Date/Type/Reason Admit Date/Time August 19, 2016 at 21:48 Initial Consult Date 08/22/16 Type of Consultation: Oncology 24 HR Interval Summary Free Text/Dictation Patient doing well, no complaints. Exam/Review of Systems Vital Signs Vitals Vital Signs Date Time Temp Pulse Resp B/P Pulse Ox O2 Delivery O2 Flow Rate FiO2 09/02/16 07:00 97.9 59 20 98/56 98 Intake and Output 09/01/16 09/01/16 09/02/16 15:00 23:00 07:00 Intake Total 1500 ml 2320 ml Output Total 1050 ml Balance 1500 ml 1270 ml Exam Constitutional: alert, oriented Psych: nl mood/affect, no complaints Head: normocephalic Eyes: nl conjunctiva ENMT: nl external ears & nose, nl lips & teeth Neck: non-tender, supple Respiratory: clear to auscultation, normal air movement Cardiovascular: regular rate and rhythm Gastrointestinal: soft Musculoskeletal: nl extremities to inspection, nl gait and stance Extremities: normal pulses, mild diffuse rash Results Result Diagram: 09/02/16 0420 Results 24 hrs Laboratory Tests Test 09/02/16 04:20 Sodium Level 133 L Potassium Level 4.2 Chloride Level 107 Carbon Dioxide Level 26 Anion Gap 4 L Blood Urea Nitrogen 7 Creatinine 0.49 L Glucose Level 97 Calcium Level 8.5 Total Bilirubin 0.5 Direct Bilirubin 0.00 # Indirect Bilirubin 0.5 Aspartate Amino Transf (AST/SGOT) 294 H Alanine Aminotransferase (ALT/SGPT) 405 H Alkaline Phosphatase 210 H Total Protein 6.0 L Albumin 2.3 L Globulin 3.70 H Albumin/Globulin Ratio 0.62 Medications Medications Current Medications Ondansetron HCl (Zofran Inj) 4 mg Q6H PRN IV NAUSEA AND/OR VOMITING Last administered on 08/26/16 15:48; Admin Dose 4 MG; Start 08/19/16 at 22:30 Morphine Sulfate (morphine) 2 mg Q4H PRN IV SEVERE PAIN LEVEL 7-10 Last administered on 08/26/16 15:46; Admin Dose 2 MG; Start 08/19/16 at 22:30 Famotidine 20 mg 20 mg Q12 PO Last administered on 09/02/16 08:38; Admin Dose 20 MG; Start 08/20/16 at 09:00 Sodium Chloride (NS) 1,000 ml @ 70 mls/hr [id number] IV Last administered on 09/02 02:08; Admin Dose 70 MLS/HR; Start 08/26/16 at 00:00 Prednisone (Prednisone) 60 mg DAILY PO Last administered on 09/02/16 08:38; Admin Dose 60 MG; Start 08/31/16 at 14:00 CARO DOMINGO MD September 02, 2016 10:24
[2016-09-02] MEDS ORDERED: PRED20TA PO ×2 (11:58→12:18)
--- NOTE | 2016-09-02 12:00 | PDOCDIS ---
Discharge Instructions DIAGNOSIS Discharge Diagnosis: 1. transaminitis from suspect autoimmune hepatitits CONDITION Patient Condition: Stable HOME CARE INSTRUCTIONS: Special Diet: REGULAR FOLLOW UP/APPOINTMENTS Appointments 1. Follow up with Dr. Wanda Ortiz in one week 2. Follow up with Dr. Kath Lucero in 2 weeks 3. Follow up with your primary care provider in 1-2 weeks ANAMARIA BLAIR September 02, 2016 12:00
--- NOTE | 2016-09-02 14:02 | PN ---
Date/Time of Note Date/Time of Note DATE: 09/02/16 TIME: 13:55 Assessment/Plan VTE Prophylaxis VTE Prophylaxis Intervention: ambulation Lines/Catheters IV [facility] Type (from [facility] Peripheral IV Urinary Cath still in place: No Assessment/Plan Chief Complaint/Hosp Course Assessment and plan 1. Hyperbilirubinemia with transaminitis suspect secondary to autoimmune hepatitis. Hepatitis panel is negative. Preliminary biopsy negative for any malignancy or liver cirrhosis. Autoimmune hepatitis versus primary biliary cirrhosis considered. improving on steroid treatment. continue 2. Positive tumor markers. Patient noted with elevated CA 199 and CEA in the setting of inflammatory process. Follow-up with oncologist recommendations 3. Polyarthritis. Etiology unclear. Analgesics as needed. Tentative plan for outpatient consultation by rheumatology 4. History of asthma. No active bronchospasm. Will provide with bronchodilators as needed DVT prophylaxis: Early ambulation GERD prophylaxis: H2 golden Disposition plan: Improving on steroid treatment. will continue. working with case management to obtain authorization for patient follow-up with GI and parts sales representative consult. Discharge once set up Discussed plan of care with Problems: Subjective 24 Hr Interval Summary Free Text/Dictation no s/s of distress. comfortable at this time Exam/Review of Systems Vital Signs Vitals Vital Signs Date Time Temp Pulse Resp B/P Pulse Ox O2 Delivery O2 Flow Rate FiO2 09/02/16 07:00 97.9 59 20 98/56 98 Intake and Output 09/01/16 09/01/16 09/02/16 15:00 23:00 07:00 Intake Total 1500 ml 2320 ml Output Total 1050 ml Balance 1500 ml 1270 ml Exam Constitutional: alert, oriented Head: normocephalic Neck: No jvd Respiratory: normal air movement Cardiovascular: other (regular rate ) Gastrointestinal: non-tender, soft Musculoskeletal: nl extremities to inspection Extremities: normal pulses Neurological: RESEARCH DIRECTOR II-XII intact, nl mental status, nl speech Results Result Diagram: 09/02/16 0420 Results 24 hrs Laboratory Tests Test 09/02/16 04:20 Sodium Level 133 L Potassium Level 4.2 Chloride Level 107 Carbon Dioxide Level 26 Anion Gap 4 L Blood Urea Nitrogen 7 Creatinine 0.49 L Glucose Level 97 Calcium Level 8.5 Total Bilirubin 0.5 Direct Bilirubin 0.00 # Indirect Bilirubin 0.5 Aspartate Amino Transf (AST/SGOT) 294 H Alanine Aminotransferase (ALT/SGPT) 405 H Alkaline Phosphatase 210 H Total Protein 6.0 L Albumin 2.3 L Globulin 3.70 H Albumin/Globulin Ratio 0.62 Medications Medications Current Medications Ondansetron HCl (Zofran Inj) 4 mg Q6H PRN IV NAUSEA AND/OR VOMITING Last administered on 08/26/16 15:48; Admin Dose 4 MG; Start 08/19/16 at 22:30 Morphine Sulfate (morphine) 2 mg Q4H PRN IV SEVERE PAIN LEVEL 7-10 Last administered on 08/26/16 15:46; Admin Dose 2 MG; Start 08/19/16 at 22:30 Famotidine (Pepcid) 20 mg Q12 PO Last administered on 09/02/16 08:38; Admin Dose 20 MG; Start 08/20/16 at 09:00 Prednisone (Prednisone) 60 mg DAILY PO Last administered on 09/02/16 08:38; Admin Dose 60 MG; Start 08/31/16 at 14:00 ANAMARIA BLAIR September 02, 2016 14:02
[2016-09-02 19:53] VITALS: BP 99/55; RESP 20
[2016-09-03 06:29] LABS: ALBUMIN 2.1 g/dl (3.3-4.9)
[2016-09-03 06:30] LABS: POTASSIUM 3.3 mmol/L (3.5-5.1)
[2016-09-03 06:32] LABS: ALBUMIN/GLOBULIN RATIO 0.56; BILIRUBIN,INDIRECT 0.4 mg/dl (0-1.1); BILIRUBIN,TOTAL 0.4 mg/dl (0.2-1.3); CREATININE 0.54 mg/dl (0.61-1.24); TOTAL PROTEIN 5.8 g/dl (6.1-8.1)
[2016-09-03 06:33] LABS: CALCIUM 8.2 mg/dl (8.4-10.2)
[2016-09-03 08:08] VITALS: BP 106/53; RESP 16
[2016-09-03] MEDS: FAMOTIDINE 20 MG TAB PO SCH (09:18)
[2016-09-03] MEDS: predniSONE 20 MG TAB PO SCH (09:19)
--- NOTE | 2016-09-03 12:15 | PN ---
Date/Time of Note Date/Time of Note DATE: 09/03/16 TIME: 12:10 Assessment/Plan VTE Prophylaxis VTE Prophylaxis Intervention: ambulation, SCD's Lines/Catheters IV Catheter Type (from [facility]): Saline Lock Urinary Cath still in place: No Assessment/Plan Assessment/Plan Jaundice/Transaminitis Biopsy liver Autoimmune hepatitis ERCP 08/24/2016 Retained fluid in the stomach (suctioned out.) ? gastroparesis. Normal ampulla of Vater. . Normal cholangiogram. MRI abdomen Hepatomegaly is noted. Hepatic periportal edema is identified, which can be seen in the setting of hepatitis. Splenomegaly is noted measuring 14 cm. . There is mild upper abdominal ascites. . Circumferential gallbladder wall thickening is noted, likely reactive secondary to underlying liver disease. No evidence of cholelithiasis, cholecystitis or biliary dilatation is identified. There is mild anasarca. * Elevated Ca 19-9 * Hx of asthma Plan * Stable for outpatient management * Steroid 60 mg daily and taper * Follow up with Hepatology * Case management to work up referral to hepatology or tertiary center Subjective 24 Hr Interval Summary Free Text/Dictation * Course reviewed with RN * patient seen and examined * Biopsy results autoimmune hepatitis Exam/Review of Systems Vital Signs Vitals Vital Signs Date Time Temp Pulse Resp B/P Pulse Ox O2 Delivery O2 Flow Rate FiO2 09/03/16 08:08 98.3 65 16 106/53 100 Intake and Output 09/02/16 09/02/16 09/03/16 15:00 23:00 07:00 Intake Total 600 ml 1200 ml 950 ml Output Total 600 ml 900 ml Balance 600 ml 600 ml 50 ml Exam Constitutional: alert, oriented Head: normocephalic Neck: non-tender, supple Respiratory: clear to auscultation, normal air movement Cardiovascular: nl pulses, regular rate and rhythm Gastrointestinal: non-tender, soft Musculoskeletal: nl extremities to inspection Results Result Diagram: 09/03/16 0440 Results 24 hrs Laboratory Tests Test 09/03/16 04:40 Sodium Level 138 Potassium Level 3.3 L Chloride Level 103 Carbon Dioxide Level 27 Anion Gap 11 # Blood Urea Nitrogen 9 Creatinine 0.54 L Glucose Level 93 Calcium Level 8.2 L Total Bilirubin 0.4 Direct Bilirubin 0.00 Indirect Bilirubin 0.4 Aspartate Amino Transf (AST/SGOT) 222 H Alanine Aminotransferase (ALT/SGPT) 328 H Alkaline Phosphatase 190 H Total Protein 5.8 L Albumin 2.1 L Globulin 3.70 H Albumin/Globulin Ratio 0.56 Medications Medications Current Medications Ondansetron HCl (Zofran Inj) 4 mg Q6H PRN IV NAUSEA AND/OR VOMITING Last administered on 08/26/16 15:48; Admin Dose 4 MG; Start 08/19/16 at 22:30 Morphine Sulfate (morphine) 2 mg Q4H PRN IV SEVERE PAIN LEVEL 7-10 Last administered on 08/26/16 15:46; Admin Dose 2 MG; Start 08/19/16 at 22:30 Famotidine (Pepcid) 20 mg Q12 PO Last administered on 09/03/16 09:18; Admin Dose 20 MG; Start 08/20/16 at 09:00 Prednisone (Prednisone) 60 mg DAILY PO Last administered on 09/03/16 09:19; Admin Dose 60 MG; Start 08/31/16 at 14:00 JUNG PENA MD September 03, 2016 12:15
--- NOTE | 2016-09-03 14:57 | DS ---
Date/Time of Note Date/Time of Note DATE: 09/03/16 TIME: 14:54 Discharge Summary Admission/Discharge Info Admit Date/Time August 19, 2016 at 21:48 Discharge Date/Time Final Diagnosis 1. Hyperbilirubinemia with transaminitis suspect secondary to autoimmune hepatitis. 2. Positive tumor markers. 3. Polyarthritis. 4. History of asthma. Patient Condition: Stable Consults 1. Dr. Wanda Ortiz 2. Dr. [place] To Hx of Present Illness PLEASE SEE THE DICTATED H&P Hospital Course This is a 21-year-old male with history of asthma who came to [facility] due to reports of abdominal pain vomiting jaundice and swollen hands. According to the patient his symptoms had occurred 2 weeks prior to admission when he started noticing he was turning yellow. He also had some abdominal pain in the right abdominal quadrant. After then he also reported that about a year ago his he has had swelling in his joints. And hands are also starting to get swollen. He of note did report that he did travel back to [facility] about a year ago when those issues started. Reports his abdominal pain has been getting worse over the past 2 weeks with vomiting nonbilious nonbloody emesis. Reported he also states he lost 50 pounds in a year. He states he is to 185 pounds. He did come to [facility] due to the aformentiond issues. Patient did have multidisciplinary consultation. He was seen by nursing care attendant. We did do hepatitis panel and he was negative. Additionally we also tested him for his tumor markers he was noted with CTA 199 elevated. We did oncologist consultation but likely in the setting of inflammatory process with his seen hepatitis markers could have been altered. Patient was with persistent hyperbilirubinemia and transaminitis. We did get biopsy and findings were suggestive of autoimmune hepatitis. We did start the patient on prednisone medication and he did have good response from this and his liver enzymes abdominal pain. Is otherwise optimized medically. For his polyarthritis of which etiology was unclear he was provided with analgesics and advised for outpatient consultation with rheumatology with a follow-up per his primary physician. He did have a history of asthma but no active bronchospasm were noted. His hyperbilirubinemia and transaminitis did improve during hospital stay. Initially we did plan for patient follow-up with nursing care attendant patient did report that he had nursing care attendant that he was referred to by his PCP. During his course of stay he did improve. He did report resolution of his abdominal pain as well as nausea and vomiting. He denied any for the pain. The plan of care was discussed with the patient and his family and patient and family did verbalize their understanding. On the day of discharge patient was in stable condition Discussed plan of care with Dr. Brush Discharge process 40 minutes Home Meds Active Scripts Prednisone* (Prednisone*) 20 Mg Tab, 60 MG PO DAILY for 30 Days, TAB 1. take 60mg by mouth daily for 7 days, then 2. take 40mg by mouth daily for 7 days, then 3. take 30mg by mouth daily for 14 days, then 4. take 20mg by mouth daily for 14 days Prov:ANAMARIA BLAIR 09/02/16 Albuterol Sulfate* (Ventolin HFA*) 18 Gm Hfa.aer.ad, 2 PUFF INHALATION Q6H, #1 INHALER 0 Refills Prov:YOHANNES TAVARES PA-C 05/14/15 Reported Medications Gabapentin* (Gabapentin*) 300 Mg Capsule, 300 MG PO TID, #90 CAP 08/27/16 Ergocalciferol (Vitamin D2) (VITAMIN D2) 50,000 Unit Capsule, 00077 UNIT PO Q7D , CAP EVERY Monday08/19/16 Follow-up Plan CONDITION Patient Condition: Stable HOME CARE INSTRUCTIONS: Special Diet: REGULAR FOLLOW UP/APPOINTMENTS Appointments 1. Follow up with Dr. Wanda Ortiz in one week 2. Follow up with Dr. Kath Lucero in 2 weeks 3. Follow up with your primary care provider in 1-2 weeks Primary Care Provider Kieran De Leon Pending Labs Laboratory Tests Test 09/03/16 04:40 Sodium Level 138mmol/L (135-144) Potassium Level 3.3mmol/L (3.5-5.1) Chloride Level 103mmol/L (97-110) Carbon Dioxide Level 27mmol/L (21-31) Anion Gap 11 (8-16) Blood Urea Nitrogen 9mg/dl (7-20) Creatinine 0.54mg/dl (0.61-1.24) Glucose Level 93mg/dl (70-220) Calcium Level 8.2mg/dl (8.4-10.2) Total Bilirubin 0.4mg/dl (0.2-1.3) Direct Bilirubin 0.00mg/dl (0.00-0.20) Indirect Bilirubin 0.4mg/dl (0-1.1) Aspartate Amino Transf (AST/SGOT) 222IU/L (15-46) Alanine Aminotransferase (ALT/SGPT) 328IU/L (13-69) Alkaline Phosphatase 190IU/L (42-121) Total Protein 5.8g/dl (6.1-8.1) Albumin 2.1g/dl (3.3-4.9) Globulin 3.70g/dl (1.3-3.2) Albumin/Globulin Ratio 0.56 ANAMARIA BLAIR September 03, 2016 14:57
== END 2016-09-03 17:30 | disposition home or self-care (01) | DRG 443 ==
LOC: FTE 17:07 → MS1 21:48
PROVIDERS: ADMIT Internal Medicine; ATTEND Internal Medicine
PROC: 0FJB8ZZ Inspection of Hepatobiliary Duct, Via Natural or Artificial Opening Endoscopic (ICD-10-PCS; 2016-08-24)
PROC: 30233K1 Transfusion of Nonautologous Frozen Plasma into Peripheral Vein, Percutaneous Approach (ICD-10-PCS; 2016-08-25)
PROC: 0FB03ZX Excision of Liver, Percutaneous Approach, Diagnostic (ICD-10-PCS; principal; 2016-08-26)
DX: K75.4 Autoimmune hepatitis (principal); D64.9 Anemia, unspecified; M13.0 Polyarthritis, unspecified; R97.8 Other abnormal tumor markers; R97.0 Elevated carcinoembryonic antigen [CEA]; R63.4 Abnormal weight loss; Z68.20 Body mass index [BMI] 20.0-20.9, adult
CPT/HCPCS: 36415; 36430; 74177; 74181; 74330; 76705; 76942; 80053; 80061; 80076; 81003; 82105; 82150; 82247; 82248; 82378; 82607; 82728; 82746; 83010; 83090; 83540; 83615; 83690; 83735; 83921; 84075; 84100; 84443; 84450; 84460; 85025; 85045; 85610; 85651; 85730; 86038; 86140; 86226; 86255; 86301; 86664; 86703; 86704; 86709; 86803; 86850; 86880; 86885; 86900; 86901; 87338; 87340; 87496; 88307; 88313; 96374; 96375; J1100; J1200; J2250; J2270; J2370; J2405; J2765; J3010; J7030; J7042; J7512; J7999; P9059; Q9967

== ENCOUNTER 2018-03-17 15:13 | Emergency (ER) | END 2018-03-17 16:58 | disposition home or self-care (01) ==